=== PATIENT | female | born 2000 | race Caucasian/White ===

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

== ENCOUNTER 2021-11-09 13:56 | Emergency (ER) | payer BC, MEDICAID, SELFPAY ==
[2021-11-09 13:57] VITALS: BP 134/75; PULSE 82; RESP 16; TEMP 36.6; O2SAT 99; BMI 24.6
[2021-11-09] MEDS: Diphth,Pertuss(Acell),Tet Vac 0.5 ML Vial IM (14:53)
[2021-11-09] MEDS: Lidocaine 1% /Epi 1:100 (20ml) 20 ML Vial 3 ML INFILT (14:56)
--- NOTE | 2021-11-09 15:08 | EX.ED.GENINJ ---
HPI <ANGLE Villeda - Last Filed: 11/09/21 15:15> History of Present Illness Chief Complaint: Laceration Narrative Narrative: 20-year-old female with no significant ago history presents to the emergency department with a laceration to the right forearm. Patient was tearing apart her frames, she tore apart in a corner of the picture frame caught her in the right forearm. Patient has a laceration to her forearm and she is here for evaluation. Denies any issues moving her hands or fingers. Denies any fevers or chills. This happened right before coming in. Tetanus vaccination is not up-to-date. PFS <ANGLE Villeda - Last Filed: 11/09/21 15:15> [facility] Medical History (Updated 11/09/21 @ 15:15 by ANGLE Villeda) Environmental allergies Home Medications fluoxetine 20 mg capsule PO #30 caps 12/23/18 [History Last Taken Unknown] Allergy/AdvReac Type Severity Reaction Status Date / Time No Known Allergies Allergy Verified 11/09/21 13:56 Family History (Updated 12/23/18 @ 16:48 by Lor Álvarez) Sister Seizures Surgical History History of appendectomy Social History (Updated 12/23/18 @ 17:06 by Jalen VALDES, PA) Smoking Status: Never smoker alcohol intake: never ROS <ANGLE Villeda - Last Filed: 11/09/21 15:15> ROS ED ROS Narrative Constitutional: Negative for fever, chills, weight loss, weakness Eyes: Negative for vision loss, vision change, double vision ENT: Negative for any sore throat, ear pain, congestion Cardiovascular: Negative for any chest pain, tightness, palpitations Respiratory: Negative for any cough, sputum production, hemoptysis, dyspnea, dyspnea on exertion, orthopnea Gastrointestinal: Negative for any abdominal pain, nausea, vomiting, diarrhea, constipation, blood in stool, blood in vomit : Negative for any urinary frequency, dysuria, retention, blood in urine Muscle skeletal: Negative for any muscle joint pain, stiffness, myalgias, arthralgias, neck pain, back pain Neurological: Negative for any headache, syncope, numbness or tingling, dizziness Skin: Negative for any rashes, lumps, itching, abrasions. Laceration to the right forearm Psychiatric: Negative for any depression, anxiety, stress, suicidal ideation, homicidal ideation Hematologic: Negative for any easy bruising, excessive bruising, easy bleeding Allergies: Negative for any eczema, hives, rash EXAM <ANGLE Villeda - Last Filed: 11/09/21 15:15> Physical Exam Narrative Exam Narrative: Vital signs reviewed. Extremities: No peripheral edema, no signs of gross trauma or deformity. Active full range of motion of all extremities. Patient has a 3 cm horizontal laceration to the right forearm. Negative for any neurological focal deficit. Neuro: Cranial nerves II through XII intact, no focal neurological deficits. Skin: Clean dry and intact with no rash, purpura, petechiae, vesicles or pustules. Backs/flank: No CVA tenderness, no midline spinal tenderness, no deformity. Psych: Normal mood and affect. No SI, HI or acute psychosis. Const Vital Signs: 11/09/21 13:57 Temperature 97.8 F Temperature Source Temporal Pulse Rate 82 Respiratory Rate 16 Blood Pressure 134/75 H Blood Pressure Mean 94 Pulse Ox 99 Oxygen Delivery Method Room Air <Dr. Travis Hernandez DO - Last Filed: 11/09/21 15:15> Physical Exam Const Vital Signs: 11/09/21 13:57 Temperature 97.8 F Temperature Source Temporal Pulse Rate 82 Respiratory Rate 16 Blood Pressure 134/75 H Blood Pressure Mean 94 Pulse Ox 99 Oxygen Delivery Method Room Air PROC <ANGLE Villeda - Last Filed: 11/09/21 15:15> Procedures Lacerations Forearm laceration: Length: 1.18 in Depth: Sub Q Shape: Linear Prep: Sterile Conditions and Shure-Clens Laceration repair: Lidocaine with epi Irrigated (ml): 250 Number of Sutures/Tyson: 6 Suture Information: Ethilon Comment: Sterile gloves, sterile drapes were used [facility] <ANGLE Villeda Last Filed: 11/09/21 15:15> [facility] Treatment and Re-Evaluation Narrative: Patient appears well, patient appears nontoxic, vital signs are stable. Patient presents to the [facility] part with a 3 cm laceration to the right forearm. This area was at the thighs with lidocaine with epinephrine, irrigated copiously with normal saline. Sterile gloves, sterile drapes were used. No foreign body noted. 6 simple interrupted sutures of 4-0 Ethilon were used. Edges approximate nicely. Patient tolerated well. Tetanus vaccination was updated today. Patient will have these removed in 10 to 12 days. She instructed return for any worsening pain, redness to the area. She was given wound care instructions. Patient stable for discharge <Dr. Travis Hernandez, - Last Filed: 11/09/21 15:15> [facility] MDM Narrative Medical decision making narrative: Attending note: Patient seen and evaluated with noodle press operator. I perform my own [id number] evaluation. I agree with the plan of work-up. Laceration right forearm prior to arrival. Pulling apart wooden frame with the corner cut her forearm. Tetanus unknown. No anticoagulation. Bleeding controlled. Exam 3 cm mid volar forearm laceration subcu exposure. No tendon or muscle involvement. No active bleeding. Tetanus updated, wound repaired by noodle press operator. Wound care discussed. Follow-up as an outpatient. Discharge Plan Triage Chief Complaint: Laceration ED Midlevel Provider: Kade Du ED Provider: Travis Hernandez Dx/Rx/DC Orders Clinical Impression: Forearm laceration Instructions: ED Laceration Small or ..., ED Wound Check (No Infection) Prescriptions: No Action fluoxetine 20 mg capsule PO Qty: 30 Primary Care Provider: Care Physician,No Primary Referrals: Care Physician,No Primary [Primary Care Provider] - Activity Restrictions/Additional Instructions: Please keep the area clean and dry. These need to be removed in 10 days, go to a PCP or urgent care. Return for any redness or signs of infection. Print Language: Ivorian Disposition Disposition: Home, Self Care
== END 2021-11-09 15:22 | disposition home or self-care (01) ==
PROVIDERS: Emergency Provider Emergency Medicine; Visit Provider Emergency Medicine
DX: S51.811A Laceration without foreign body of right forearm, initial encounter (principal); X58.XXXA Exposure to other specified factors, initial encounter
CPT/HCPCS: 12001; 90715; 96372; 99282

== ENCOUNTER → 2022-02-12 | Outpatient (CLI) | payer BC, MEDICAID, SELFPAY ==
[2022-02-12 18:12] LABS: AST(SGOT) 22 U/L (15-37); Alanine Aminotransfer ALT/SGPT 19 U/L (13-56); Anion Gap 6 (5-15); BUN 7 mg/dL (7-18); BUN/Creat Ratio 10.6 RATIO (10-20); Chloride 104 mmol/L (98-107); Creatinine, Serum 0.66 mg/dL (0.55-1.02); EST Glomerular Filtration Rate 121 mL/min (>60); Est Glom Filt Rate - Afr Amer 146 mL/min (>60); Glucose 94 mg/dL (74-106); Potassium 3.6 mmol/L (3.5-5.1); Sodium Level 138 mmol/L (136-145)
[2022-02-12 18:17] LABS: Absolute Lymphocyte Count 2.37 X10^3/uL (0.83-4.51); Absolute Neutrophil Count 4.3 X10^3/uL (2.0-7.7); Basophil# 0.05 X10^3/uL; Basophil% 0.7 % (0-1); Eosinophil# 0.15 X10^3/uL; Hemoglobin 12.8 g/dL (12.0-15.0); Lymphocyte # 2.37 X10^3/ul (0.83-4.51); Lymphocyte % 31.3 % (19-41); Mean Corp Hgb Conc 33.7 g/dL (32-36); Mean Corpuscular Hgb 30.3 pg (27.0-32.0); Mean Corpuscular Volume 89.8 fL (81-99); Mean Platelet Vol. 10.1 fl (6.2-12.0); Monocyte# 0.68 X10^3/uL; NRBC Flagged by Analyzer 0 % (0-5); Neutrophil % 56.7 % (47-70); Platelet Count 317 K/mm3 (150-450); RBC Distribution Width CV 11.8 % (11.6-14.6); RBC Distribution Width SD 38.5 fl (35.1-43.9); Red Blood Count 4.23 M/mm3 (4.2-5.4); White Blood Count 7.6 K/mm3 (4.4-11.0)
[2022-02-13 08:47] LABS: Hepatitis B Surface Antibody Non-Reactive; Hepatitis B Surface Antigen Non-Reactive (Nonreactive); Hepatitis C Antibody Non-Reactive (Nonreactive)
[2022-02-14 13:07] LABS: QNTFERON TB Mitogen Value > 10.00 IU/mL (.); QNTFERON TB Nil Value 0.01 IU/mL (.); QNTFERON TB1+ Ag Value 0.04 IU/mL (.); QNTFERON TB2+ Ag Value 0.03 IU/mL (.)
[2022-02-19 12:39] LABS: Hepatitis B Core Ab Total Negative (Negative); QNTIFERON TB Positive Criteria Negative (Negative)
== END | disposition home or self-care (01) ==
LOC: MTLAB 15:46
PROVIDERS: Referring Provider Dermatology; Visit Provider Dermatology
DX: L40.0 Psoriasis vulgaris (principal); Z79.899 Other long term (current) drug therapy
CPT/HCPCS: 36415; 80048; 84450; 84460; 85025; 86480; 86704; 86706; 86803; 87340

== ENCOUNTER → 2022-04-04 | Outpatient (CLI) | payer BC, MEDICAID, SELFPAY ==
[2022-04-04 13:20] LABS: NATERA MAILED SPECIMEN
[2022-04-07 09:07] LABS: Chlamydia By Nucleic Acid AMP Positive (Negative)
[2022-04-07 13:37] LABS: Gonococcus By Nucleic Acid AMP Negative (Negative)
== END | disposition home or self-care (01) ==
PROVIDERS: Referring Provider Obstetrics & Gynecology; Visit Provider Obstetrics & Gynecology
DX: Z34.00 Encounter for supervision of normal first pregnancy, unspecified trimester (principal)
CPT/HCPCS: 36415; 87086; 87088; 87491; 87591

== ENCOUNTER → 2022-04-19 | Outpatient (CLI) | payer BC, MEDICAID, SELFPAY ==
--- NOTE | 2022-04-19 10:48 | US_ITS ---
INDICATION: f/u subchorionic hemorrhage EXAMINATION: US OB Less Than 14 Weeks TECHNIQUE: Transabdominal pelvic ultrasound was performed. Grayscale and color flow Doppler evaluation of the adnexa. COMPARISON: None received. FINDINGS: Uterus measures 11.6 x 8.9 x 10.1 cm. Single live intrauterine with heart rate of 164 BPM. Kershaw-rump length measurement of 6.5 cm yields estimated gestational age of 12 weeks 6 days, TAY 10/26/2022. Clinical age also 12 weeks 6 days, LMP 01/19/2022. Anechoic fluid collection underlying inferior margin of placenta compatible with subchorionic hematoma, measuring 4.6 x 1.1 x 1.9 cm. Closed cervix. Amniotic fluid volume subjectively within normal limits. No adnexal mass or significant free pelvic fluid demonstrated. Nonvisualized left ovary, obscured by bowel and regional soft tissues. Right ovary normal size with normal color Doppler flow and no large cyst, measuring 2.3 x 1.3 x 1.9 cm. Spectral Doppler waveform analysis of adnexa not performed. US/Init OB < 14Wks US IMPRESSION: Single live intrauterine with EGA of 12 weeks 6 days by ultrasound and LMP. Small subchorionic hematoma noted (no comparison imaging or prior report available). Electronically Signed: Alfonso Bazan MD at 1:48 EST ,
== END | disposition home or self-care (01) ==
LOC: US 10:47
PROVIDERS: Referring Provider Obstetrics & Gynecology; Visit Provider Obstetrics & Gynecology
DX: Z34.91 Encounter for supervision of normal pregnancy, unspecified, first trimester (principal)
CPT/HCPCS: 76801

== ENCOUNTER → 2022-04-25 | Outpatient (CLI) | payer BC, MEDICAID, SELFPAY | END | disposition home or self-care (01) | LOC: LABSPEC 11:07 | PROVIDERS: Referring Provider Obstetrics & Gynecology; Visit Provider Obstetrics & Gynecology | DX: N39.0 Urinary tract infection, site not specified (principal) | CPT/HCPCS: 87086; 87088 ==

== ENCOUNTER → 2022-05-08 | Outpatient (CLI) | payer MEDICAID, SELFPAY ==
--- NOTE | 2022-05-08 17:14 | US_ITS ---
STUDY: SECOND AND THIRD TRIMESTER OBSTETRICAL ULTRASOUND REASON FOR EXAM: Female, 21 years old F/U SUBCHORIONIC BLEED LMP: Unknown. TECHNIQUE: Transabdominal and Transvaginal TECHNICAL QUALITY: Adequate. PRIOR ULTRASOUND: None. FINDINGS: There is a single intrauterine fetus. The fetus is in a cephalic presentation. There is demonstrated cardiac activity with a heart rate of 185 bpm. There is a normal amniotic fluid volume. The largest amniotic fluid pocket measures 3.0 cm. The placenta is anterior in location and is not low lying. There are Grade 0 placental changes. The cervix measures 3.9 cm in length. The bilateral adnexal regions are normal. BIOMETRY: BPD: 3.2 cm: 16 weeks, 0 days HC: 16.7 cm: 15 weeks, 5 days AC: 9.9 cm: 16 weeks, 0 days FL: 1.8 cm: 15 weeks, 3 days age by current US: 15 weeks, 5 days. TAY by current US: October 25, 2022. Estimated weight: 133 grams, +/- 20 grams . age by prior US: 15 weeks, 4 days. TAY by prior US: October 26, 2022. Age by LMP: 15 weeks, 4 days. TAY by LMP: October 26, 2022. US/Transvaginal w/Preg US IMPRESSION: Single intrauterine gestation of 15 weeks 5 days with estimated due date October 25, 2022. Estimated weight 133 g. There is no hemorrhage seen. Electronically Signed: Reza Goff MD at 21:17 EST ,
== END | disposition home or self-care (01) ==
LOC: US 17:12
PROVIDERS: Referring Provider Obstetrics & Gynecology; Visit Provider Obstetrics & Gynecology
DX: Z34.92 Encounter for supervision of normal pregnancy, unspecified, second trimester (principal)
CPT/HCPCS: 76817

== ENCOUNTER → 2022-05-31 | Outpatient (CLI) | payer BC, MEDICAID, SELFPAY ==
[2022-06-04 22:07] LABS: Chlamydia By Nucleic Acid AMP Negative (Negative)
[2022-06-04 22:26] LABS: Gonococcus By Nucleic Acid AMP Negative (Negative)
== END | disposition home or self-care (01) ==
PROVIDERS: Visit Provider Registered Nurse
DX: Z11.3 Encounter for screening for infections with a predominantly sexual mode of transmission (principal)
CPT/HCPCS: 87491; 87591

== ENCOUNTER → 2022-07-22 | Outpatient (CLI) | payer OTHER, MEDICAID, SELFPAY | END | disposition home or self-care (01) | PROVIDERS: Visit Provider Nurse Practitioner Women's Health | DX: O26.899 Other specified pregnancy related conditions, unspecified trimester (principal); R30.0 Dysuria; Z3A.00 Weeks of gestation of pregnancy not specified | CPT/HCPCS: 87086; 87088 ==

== ENCOUNTER → 2022-07-23 | Outpatient (CLI) | payer MEDICAID, SELFPAY ==
[2022-07-23 10:46] LABS: Absolute Lymphocyte Count 1.92 X10^3/uL (0.83-4.51); Absolute Neutrophil Count 5.7 X10^3/uL (2.0-7.7); Basophil# 0.04 X10^3/uL; Basophil% 0.5 % (0-1); Eosinophil# 0.15 X10^3/uL; Eosinophils% 1.8 % (0-5); Hematocrit 31.4 % (37-47); Hemoglobin 10.6 g/dL (12.0-15.0); Lymphocyte # 1.92 X10^3/ul (0.83-4.51); Lymphocyte % 22.9 % (19-41); Mean Corp Hgb Conc 33.8 g/dL (32-36); Mean Corpuscular Hgb 30.9 pg (27.0-32.0); Mean Corpuscular Volume 91.5 fL (81-99); Mean Platelet Vol. 9.5 fl (6.2-12.0); Monocyte# 0.58 X10^3/uL; Monocyte% 6.9 % (0-10); NRBC Flagged by Analyzer 0 % (0-5); Neutrophil # 5.67 X10^3/uL (2.7-7.7); Neutrophil % 67.5 % (47-70); Platelet Count 252 K/mm3 (150-450); RBC Distribution Width CV 11.8 % (11.6-14.6); RBC Distribution Width SD 39.7 fl (35.1-43.9); Red Blood Count 3.43 M/mm3 (4.2-5.4); White Blood Count 8.4 K/mm3 (4.4-11.0)
[2022-07-23 11:02] LABS: Glucose Challenge Gest 1H 50g 153 mg/dL (70-140)
[2022-07-23 11:50] LABS: HIV - WCH Non-Reactive (Nonreactive); Hepatitis B Surface Antigen Non-Reactive (Nonreactive); Hepatitis C Antibody Non-Reactive (Nonreactive); Rubella IgG Reactive (Nonreactive); Syphilis Antibodies Non-reactive
== END | disposition home or self-care (01) ==
PROVIDERS: Referring Provider Obstetrics & Gynecology; Visit Provider Obstetrics & Gynecology
DX: Z34.00 Encounter for supervision of normal first pregnancy, unspecified trimester (principal)
CPT/HCPCS: 36415; 82950; 85025; 86703; 86762; 86780; 86803; 86850; 86900; 86901; 87340

== ENCOUNTER → 2022-07-31 | Outpatient (CLI) | payer MEDICAID, SELFPAY ==
[2022-07-31 10:59] LABS: Glucose GTT-Gestation. Fasting 92 mg/dL (<105)
[2022-07-31 11:43] LABS: Glucose GTT-Gestational 1 Hr 175 mg/dL (<190)
[2022-07-31 13:25] LABS: Glucose GTT-Gestational 2 Hr 179 mg/dL (<165)
[2022-07-31 14:10] LABS: Glucose GTT-Gestational 3 Hr 98 L (<145)
== END | disposition home or self-care (01) ==
LOC: LAB 09:46
PROVIDERS: Referring Provider Obstetrics & Gynecology; Visit Provider Obstetrics & Gynecology
DX: Z13.1 Encounter for screening for diabetes mellitus (principal)
CPT/HCPCS: 36415; 82951; 82952

== ENCOUNTER → 2022-09-20 | Outpatient (CLI) | payer OTHER, MEDICAID, SELFPAY | END | disposition home or self-care (01) | PROVIDERS: Referring Provider Obstetrics & Gynecology; Visit Provider Obstetrics & Gynecology | DX: O26.899 Other specified pregnancy related conditions, unspecified trimester (principal); Z67.91 Unspecified blood type, Rh negative; Z3A.00 Weeks of gestation of pregnancy not specified | CPT/HCPCS: 36415; 86900; 86901 ==

== ENCOUNTER → 2022-10-02 | Outpatient (CLI) | payer OTHER, MEDICAID, SELFPAY | END | disposition home or self-care (01) | PROVIDERS: Visit Provider Obstetrics & Gynecology | DX: Z34.00 Encounter for supervision of normal first pregnancy, unspecified trimester (principal) | CPT/HCPCS: 87081 ==

== ENCOUNTER 2022-10-27 02:22 | Inpatient (IN) | payer OTHER, MEDICAID, SELFPAY ==
[2022-10-27] VITALS (60 sets, daily range): BP systolic 91–149; BP diastolic 46–76; PULSE 71–175; TEMP 36.2–37.4; O2SAT 95–100; BMI 35.8
[2022-10-27] MEDS: Lactated Ringers 1,000 ML 50 ML IV ×3 (02:45→17:02)
[2022-10-27 03:04] LABS: Absolute Lymphocyte Count 2.42 X10^3/uL (0.83-4.51); Basophil# 0.06 X10^3/uL; Basophil% 0.5 % (0-1); Eosinophil# 0.15 X10^3/uL; Eosinophils% 1.3 % (0-5); Hematocrit 30.8 % (37-47); Hemoglobin 9.5 g/dL (12.0-15.0); Lymphocyte # 2.42 X10^3/ul (0.83-4.51); Lymphocyte % 20.4 % (19-41); Mean Corp Hgb Conc 30.8 g/dL (32-36); Mean Corpuscular Hgb 24.4 pg (27.0-32.0); Mean Platelet Vol. 9.1 fl (6.2-12.0); Monocyte# 1.12 X10^3/uL; Monocyte% 9.4 % (0-10); NRBC Flagged by Analyzer 0 % (0-5); Neutrophil # 8.03 X10^3/uL (2.7-7.7); Neutrophil % 67.6 % (47-70); Platelet Count 274 K/mm3 (150-450); RBC Distribution Width CV 15.2 % (11.6-14.6); RBC Distribution Width SD 43.1 fl (35.1-43.9); White Blood Count 11.9 K/mm3 (4.4-11.0)
[2022-10-27 03:30] LABS: AST(SGOT) 18 U/L (15-37); Alanine Aminotransfer ALT/SGPT < 6 U/L (13-56); Creatinine, Serum 0.47 mg/dL (0.55-1.02); EST Glomerular Filtration Rate 179 mL/min (>60); Est Glom Filt Rate - Afr Amer 217 mL/min (>60); Estimated Creatinine Clearance 157.94 ml/min; Uric Acid 2.9 mg/dL (2.6-6.0)
[2022-10-27 04:09] LABS: Syphilis Antibodies Non-reactive
[2022-10-27 04:24] LABS: Protein, Urine (Random) 12.4 mg/dL (<11.9); Protein:Creat Ratio 202 mg/g CRE (0-200)
[2022-10-27] MEDS: LACTATED RINGERS 500 ML 999 ML IV (06:08)
--- NOTE | 2022-10-27 07:04 | HP.PCM.OB_ITS ---
HPI - General General Date of Admission: 10/27/22 HPI Narrative HATTIE TERAN, is a 21 F who presents IAL with regular ctx borderline elevated bps normal labs, no vb lof good fm made change to 3 cm Maternal Data Information TAY Calculator Estimated Delivery Date Method Current WG Current Estimate 10/26/22 LMP (Certain) 40w 1d PFSH PFS Medical History (Updated 10/27/22 @ 07:[address] Isatu Liu MD) Abnormal glucose affecting Chlamydia infection affecting Environmental allergies Home Medications fluoxetine 20 mg capsule PO #30 caps 12/23/18 [History Last Taken Unknown] multivitamin no.47-iron fum 27 mg-folate no.1 1 mg-dha 300 mg capsule (Virt-PN DHA) 1 cap PO DAILY #90 caps 05/21/22 [Rx Last Taken Unknown] Allergy/AdvReac Type Severity Reaction Status Date / Time No Known Allergies Allergy Verified 10/27/22 01:42 Family History Sister Seizures absent sz epilepsy sz Surgical History History of appendectomy Hx of appendectomy Social History adopted: No household members: significant other housing: house current occupational status: unemployed current occupational exposures/hazards: No pets and animals: No history of recent travel: No sexually active: Yes Smoking Status: Former smoker quit date: 11/19/21 Tobacco: How many years used: 6 second hand exposure: No alcohol intake: never substance use type: does not use well-balanced diet: daily or most days caffeine: Yes (1 cup ) Type: coffee seatbelt use: always do you feel safe at home: No additional social history: fianc? - Maicol joseph History 1 Elective abortions Hx Para 0 Spontaneous abortions Hx # Term Pregnancies Ectopic pregnancies Hx # Pregnancies Multiple births # of living children Visit Details Expected Delivery Route/Plan Labor Preferences- CB/BF classes: encourage labor support person: Maicol labor intervention preferences: [] pain management options preferred: epidural cut cord/dad catch: would love to catch/cut cord : yes PP control planned: discussed discussed possible routes of delivery and associated risks: [] special requests: [] Plans Covid status: no vaccines Flu vaccine: declined Tdap vaccine: [] Rhogam: [] LARC form signed: yes Problem list reviewed and updated with the most current plan of care details and appropriate orders placed. Relevant counseling for the gestational age provided. Continue routine care and follow up unless otherwise noted in visit notes/problem list details OB Flowsheet Initial Weight: Not Recorded Date -?-?-?-?-?-?-?-?-?-?-?-?- EGA Weight BP Urine Prot -?-?-?-?-?-?-?-?-?-?-?-?- Glucose FHR FuHt Pres Dilation -?-?-?-?-?-?-?-?-?-?-?-?- Effaced St Visit Note 04/04/22 -?-?-?-?-?-?-?-?-?-?-?-?- 10w 5d 156 lb 4 oz 105/55 -?-?-?-?-?-?-?-?-?-?-?-?- 171 -?-?-?-?-?-?-?-?-?-?-?-?- JV- single live IUP with large 4.5 cm subchorionic hemorrhage. CRL measuring 11 weeks and 2 days, consistent with LMP. ordering formal scan in 2 weeks and asking patient to refrain from heavy lifting and intercourse. 05/02/22 -?-?-?-?-?-?-?-?--?-?-?-?- 14w 5d 162 lb 6 oz 120/70 Nega tive -?-?-?-?-?-?-?-?-?-?-?-?- Negative 160 -?-?-?-?-?-?-?-?-?-?-?-?- JV- nml NIPT (ge nder surprise) rpt scan on 04/19 showed persistence of large chuy. ordering follow up scan for close monitoring. 05/31/22 -?-?-?-?-?-?-?-?-?-?-?-?- 18w 6d 166 lb 8 oz 120/74 Nega tive -?-?-?-?-?-?-?-?-?-?-?-?- Negative 150 -?-?-?-?-?-?-?-?-?-?-?-?- LC- no concerns. DAMARIS obtained today. no vb/cramping. anatomy scheduled. denies afp 06/28/22 -?-?-?-?-?-?-?-?-?-?-?-?- 22w 6d 172 lb 8 oz 113/63 Nega tive -?-?-?-?-?-?-?-?-?-?-?-?- Negative 155 -?-?-?-?-?-?-?-?-?-?-?-?- JV-no lof, vagin al bleeding, or cramping. no complaints. 07/22/22 -?-?-?-?-?-?-?-?-?-?-?-?- 26w 2d 180 lb 2 oz 114/66 Nega tive -?-?-?-?-?-?-?-?-?-?-?-?- Negative 161 -?-?-?-?-?-?-?-?-?-?-?-?- MH-No Vb, LOF. G ood FM. Having urinary pressure: UA:+:Rx macorbid. Still has not done PN labs and glucose due. States will do tomorrow. 08/07/22 -?-?-?-?-?-?-?-?-?-?-?-?- 28w 4d 183 lb 2 oz 121/76 Nega tive -?-?-?-?-?-?-?-?-?-?-?-?- Negative 159 29 -?-?-?-?-?--?-?-?-?-?-?-?- JV- pt wants to think about tdap. no complaints. today. passed 3 hr. 08/21/22 -?-?-?-?-?-?-?-?-?-?-?-?- 30w 4d 188 lb 2 oz 114/79 Nega tive -?-?-?-?-?-?-?-?-?-?-?-?- Negative 150 29 -?-?-?-?-?-?-?-?-?-?-?-?- JV- no lof, vagi nal bleeding, or dec fm. declines tdap 09/04/22 -?-?-?-?-?--?-?-?-?-?-?-?- 32w 4d 193 lb 104/62 Trace -?-?-?-?-?-?-?-?-?-?-?-?- Negative 140 32 -?-?-?-?-?-?-?-?-?-?-?-?- LC- no lof/vb/ct x. good fm. declines rhogam today after, discussing benefits. will obtain partners blood typing and will consider. 09/20/22 -?-?-?-?-?-?-?-?-?-?-?-?- 34w 6d 197 lb 113/72 Negative -?-?-?-?-?-?-?-?-?-?-?-?- Negative 134 34 -?-?-?-?-?-?-?-?-?-?-?-?- JV- no lof, vagi nal bleeding, or dec fm. pt agrees to get rhogam now as we were never able to fing OBDULIO's blood type. (she declined it last time) 10/02/22 -?-?-?-?-?-?-?-?-?-?-?-?- 36w 4d 197 lb 122/82 -?-?-?-?-?-?-?-?-?-?-?-?- 165 36 Cephalic 0 -?-?-?-?-?-?-?-?-?-?-?-?- JV- no lof, vagi nal bleeding, or dec fm. gbs collected. 10/11/22 -?-?-?-?-?-?-?-?-?-?-?-?- 37w 6d 200 lb 6 oz 116/76 Nega tive -?-?-?-?-?-?-?-?-?-?-?-?- Negative 155 37 Cephalic 0 -?-?-?-?-?-?-?-?-?-?-?-?- JV- vtx on bedsi de scan. no complaints. GBS neg 10/18/22 -?-?-?-?-?-?-?-?-?-?-?-?- 38w 6d 203 lb 8 oz 120/76 Nega tive -?-?-?-?-?-?-?-?-?-?-?-?- Negative 140 39 Cephalic 0 -?-?-?-?-?-?-?-?-?-?-?-?- -4 LC- no v b/ctx/lof.no complaints. 10/25/22 -?-?-?-?-?-?-?-?-?-?-?-?- 39w 6d 201 lb 2 oz 109/69 Nega tive -?-?-?-?-?-?-?-?-?-?-?-?- Negative 140 40 2.5 -?-?-?-?-?-?-?-?-?-?-?-?- 60 -2 SM- no vb lof good fm no regular ctx NST FHR Rate Baby A Baseline: 140 Variability:: Moderate Accelerations:: 15 x 15 Decelerations:: Late (isolated) NST Reactive:: Yes FHR Category:: Category II Uterine Activity:: q3-5 ROS Constitutional Constitutional: Reports systems reviewed and no addt'l complaints, except as documented ENT HEENT: Reports systems reviewed and no addt'l complaints, except as documented Cardiovascular Cardiovascular: Reports systems reviewed and no addt'l complaints, except as documented Respiratory/Chest Respiratory/Chest: Reports systems reviewed and no addt'l complaints, except as documented Gastrointestinal Gastrointestinal: Reports systems reviewed and no addt'l complaints, except as documented and nausea; Denies abdominal pain Genitourinary Genitourinary: Reports systems reviewed and no addt'l complaints, except as documented, contractions Details: present and frequency (regular ) and movement Details: present Musculoskeletal Musculoskeletal: Reports systems reviewed and no addt'l complaints, except as documented Integumentary Integumentary: Reports as per HPI Neurologic Neurologic: Reports systems reviewed and no addt'l complaints, except as documented Endocrine Endocrinology: Reports systems reviewed and no addt'l complaints, except as documented Vital Signs Vital Signs Vital Signs: 10/27/22 01:38 10/27/22 01:38 10/27/22 01:38 Temperature Temperature Source Pulse Rate 91 89 Blood Pressure 149/76 H BP Systolic 149 BP Diastolic 76 Pulse Ox 10/27/22 01:38 10/27/22 01:41 10/27/22 01:41 Temperature Temperature Source Pulse Rate 89 Blood Pressure 145/74 H BP Systolic 145 BP Diastolic 74 Pulse Ox 99 10/27/22 01:39 10/27/22 01:39 10/27/22 03:59 Temperature 97.1 F L Temperature Source Temporal Pulse Rate Blood Pressure 135/72 H BP Systolic 135 BP Diastolic 72 Pulse Ox 10/27/22 03:59 10/27/22 03:59 10/27/22 03:59 Temperature Temperature Source Temporal Pulse Rate 80 83 Blood Pressure BP Systolic BP Diastolic Pulse Ox 10/27/22 03:59 10/27/22 03:59 10/27/22 05:16 Temperature 97.6 F L Temperature Source Pulse Rate Blood Pressure 139/76 H BP Systolic 139 BP Diastolic 76 Pulse Ox 99 10/27/22 05:16 10/27/22 05:20 10/27/22 05:20 Temperature Temperature Source Temporal Pulse Rate 75 Blood Pressure 139/76 H BP Systolic 139 BP Diastolic 76 Pulse Ox 10/27/22 05:20 10/27/22 05:20 10/27/22 05:58 Temperature 97.3 F L Temperature Source Pulse Rate 75 Blood Pressure 128/73 H BP Systolic 128 BP Diastolic 73 Pulse Ox 10/27/22 05:58 10/27/22 05:58 10/27/22 05:58 Temperature 97.5 F L Temperature Source Temporal Pulse Rate 96 Blood Pressure BP Systolic BP Diastolic Pulse Ox Weight Weight: 202 lb 6.15 oz Body Mass Index (BMI) 35.8 Physical Exam Const alert, oriented x3 and healthy appearing Constitutional Narrative: uncomfortable with contractions HEENT normocephalic and moist oral mucous membranes Head and Scalp: atraumatic Neck full ROM, no lymphadenopathy, supple and thyroid normal General: trachea midline Thyroid: thyroid normal Lymph Lymphatic: no lymphadenopathy noted Chest inspection of chest normal Resp normal respiratory effort Cardio regular rate GI normal to inspection, nondistended, normoactive bowel sounds, soft to palpation and non-tender Inspection: gravid external exam normal Bimanual Exam - Vag & Uterus: uterus non-tender Manual OB Exam: estimated gestational size appropriate, presentation cephalic, dilated, effaced and station Extremity normal to inspection General Extremity: Negative for edema Skin no rashes or lesions noted Neuro deep tendon reflexes 2+ bilaterally Motor Exam: strength 5/5 throughout and clonus absent Psych mental status grossly normal Labs Labs Labs: Blood Type O NEGATIVE Antibody Screen POSITIVE Hct 30.8 % (37-47) L Hgb 9.5 g/dL (12.0-15.0) L Obstetrics US Syphilis Total Ab Non-reactive Rubella IgG Antibody Reactive (Nonreactive) Hep Bs Antigen Non-Reactive (Nonreactive) Chlamydia DNA (TORREY) Negative (Negative) Neisseria gonorrhoeae DNA (TORREY) Negative (Negative) HIV 1&2 Antibody Non-Reactive (Nonreactive) Glucose 1 Hr 50 gm 153 mg/dL (70-140) H Assessment & Plan (1) Rh negative status during : COMMENT: rhogam given 09/20/22 (2) UTI in : COMMENT: Culture pending. Rx macrobid (3) Supervision of normal first : COMMENT: PRR TAY 10/26/2022. girl Arabella Milian (4) : QUALIFIERS: Weeks of gestation: 39 weeks Qualified Code(s): Z3A.39 - 39 weeks gestation of COMMENT: Neg GBS NIPT low risk, carrier screening neg. , nl anatomy (5) Abnormal glucose affecting : COMMENT: nl 3 hr. GTT (6) Active labor at term: PLAN: Plan Patient presents IAL, plan expectant management for , pitocin/AROM PRN if needed. Pain management: plans epidural. GBS neg Management of any complications: none I have reviewed the [facility] and made any clinically relevant updates.
[2022-10-27] MEDS: fentaNYL-bupivacaine (epidural) 100 ML BAG EPIDURAL ×4 (07:56→21:34)
[2022-10-27] MEDS: Oxytocin 15 Units/NS 250ml 15 UNITS/250 ML IV.SOLN 2 UNITS IV (10:55)
--- NOTE | 2022-10-27 23:15 | OP.PCM_ITS ---
Assessment & Plan (1) Abnormal glucose affecting : COMMENT: nl 3 hr. GTT (2) : QUALIFIERS: Weeks of gestation: 39 weeks Qualified Code(s): Z3A.39 - 39 weeks gestation of COMMENT: Neg GBS NIPT low risk, carrier screening neg. , nl anatomy (3) Supervision of normal first : COMMENT: PRR TAY 10/26/2022. girl Arabella Milian (4) UTI in : COMMENT: Culture pending. Rx macrobid (5) Rh negative status during : COMMENT: rhogam given 09/20/22 (6) Active labor at term: (7) Vaginal delivery: COMMENT: SM IAL girl Arabella 40 Maternal Data Information TAY Calculator Estimated Delivery Date Method Current WG Current Estimate 10/26/22 LMP (Certain) 40w 1d Vaginal Delivery Operative Information Date of Procedure: 10/27/22 Pre-Operative Diagnosis: see a/p diagnoses Post-Operative Diagnosis: same Surgery / Procedure Performed: Spontaneous Vaginal Delivery Type of Anesthesia: Epidural Special Medications: none Estimated Blood Loss: 300 Fluids Replaced: crystalloid Findings Description of Procedure: Patient began pushing and delivered the head in the DORIS presentation. The head was delivered atraumatically and a loose nuchal cord ?2 was identified and the delivered through without complication. The anterior and posterior sotero ulders delivered without complication followed by the rest of the and the infant was placed on the maternal abdomen. Delayed cord clamping was employed for approximately 60 seconds. Cord was clamped and cut and gentle traction was applied to the cord and the placenta delivered spontaneously immediately following it was noted to be intact with three-vessel cord. The perineum and vagina were inspected and noted to have a second degree perineal laceration which was repaired in the usual fashion with 3-0 vicryl rapide. . EBL was 300. Patient and tolerated delivery well. Amniotic Fluid Description: Moderate meconium Placental Delivery Description: Spontaneous Placenta Disposition: [facility] Cord Vessel Description: 3 Vessels Cord Entanglement: Around neck x 2, loose Delayed Cord Clamping: Yes Post Vaginal Delivery Medications Given After Delivery: IV Pitocin Episiotomy Description: None Complication Complications: None Procedures Urinary/Genital [id number]: [id number] [facility]aginal [facility]
[2022-10-27] MEDS: Oxytocin 15 Units/NS 250ml 15 UNITS/250 ML IV.SOLN 83 UNITS IV (23:16)
--- NOTE | 2022-10-27 23:18 | DCINST_ITS ---
Discharge Instructions Diet Discharge Diet: No restrictions Activity Discharge Activity: Return to Normal Activity, May Not Drive (while taking narcotic pain medications.) and May Shower May resume sexual activity in: 4-6 weeks Dressing / Incision Call your doctor if your incision/area has: Continuous Slow Oozing, Sudden Increased Bleeding, Increased Pain/ Swelling, Increased Redness and Foul Smelling Discharge Follow Up Care Please Follow Up With: Isatu iLu MD When: Call [phone] to make an appointment with your doctor in 6 weeks. If you had elevated blood pressure or 4th degree laceration, you will need to be seen in 2 weeks. Test Results: Test results from this visit will be discussed in further detail at your follow- up appointment, if applicable. Discharge Plan Admission Admit Date/Time: 10/27/22 02:22 Attending Provider: Isatu Liu Primary Care Provider: Care Physician,Latasha Primary Discharge Orders/Prescriptions Prescriptions: No Action fluoxetine 20 mg capsule PO Qty: 30 Virt-PN DHA 27 mg iron-1 mg -300 mg capsule 1 cap PO DAILY Qty: 90 3RF Referrals / Follow Up: Care Physician,No Primary [Primary Care Provider] -
[2022-10-28] VITALS (12 sets, daily range): BP systolic 108–134; BP diastolic 46–75; PULSE 78–95; RESP 16–18; TEMP 36.2–37.6; O2SAT 97–98
[2022-10-28] MEDS: Naproxen 500 MG Tablet PO ×2 (01:25→15:52)
--- NOTE | 2022-10-28 07:49 | PCM.PN.OB ---
Subjective Subjective Patient doing well without complaints. Tolerating PO. Ambulating and voiding without difficulty. Feeding well. Denies chest pain, shortness of breath, calf pain/swelling, fevers, chills, lightheadedness. Objective Data Objective Data Vital Signs: Vital Signs Temp Pulse Resp BP Pulse Ox 98.0 F 90 16 108/56 L 100 10/28/22 05:30 10/28/22 05:30 10/28/22 05:30 10/28/22 05:30 10/27/22 21:12 Weight: 202 lb 6.15 oz Body Mass Index (BMI) 35.8 Intake & Output: Intake and Output for Last 24 Hours 10/26/22 10/27/22 10/28/22 23:59 23:59 23:59 Intake Total 6284.17 / 6284.17 250 / 250 Output Total 3700 / 3700 1800 / 1800 Balance 2584.17 / 2584.17 -1550 / -1550 Lab / Micro Data 10/27/22 02:45 10/27/22 02:45 Labs: Laboratory Results - last 24 hr 10/28/22 02:25: Screen NEGATIVE, Baby's Blood Type O POSITIVE, Baby's MARIA ESTHER NEGATIVE Physical Exam Const alert and oriented x3 Chest inspection of chest normal Nipple/Areola: nipples/areola normal Resp normal respiratory effort, normal air movement and no retractions GI GI Narrative: fundus firm, 1 below u, scant lochia Extremity normal to inspection, full ROM, no calf tenderness and no pedal edema Skin no rashes or lesions noted Assessment & Plan (1) Vaginal delivery: COMMENT: SM IAL girl Arabella 40 (2) Rh negative status during : COMMENT: rhogam given 09/20/22
[2022-10-29 02:20] VITALS: BP 103/58; PULSE 70; RESP 16; TEMP 36.6
[2022-10-29] MEDS: Naproxen 500 MG Tablet PO (04:02)
--- NOTE | 2022-10-29 08:02 | PCM.PN.OB ---
Subjective Subjective Patient doing well without complaints. Tolerating PO. Ambulating and voiding without difficulty. Breast feeding-baby with some difficulty. Cries frequently. Denies chest pain, shortness of breath, calf pain/swelling, fevers, chills, lightheadedness. Objective Data Objective Data Vital Signs: Vital Signs Temp Pulse Resp BP Pulse Ox O2 Del Method 97.8 F 70 16 103/58 L 98 Room Air 10/29/22 02:20 10/29/22 02:20 10/29/22 02:20 10/29/22 02:20 10/28/22 15:37 10/29/22 02:20 Oxygen Delivery Method Room Air Weight: 202 lb 6.15 oz Body Mass Index (BMI) 35.8 Intake & Output: Intake and Output for Last 24 Hours 10/27/22 10/28/22 10/29/22 23:59 23:59 23:59 Intake Total 6284.17 / 6284.17 250 / 250 Output Total 3700 / 3700 1800 / 1800 Balance 2584.17 / 2584.17 -1550 / -1550 Lab / Micro Data 10/27/22 02:45 10/27/22 02:45 Physical Exam Const alert and oriented x3 HEENT normocephalic Eyes PERRL Neck full ROM Resp normal respiratory effort GI soft to palpation GI Narrative: FF below U Assessment & Plan (1) Vaginal delivery: COMMENT: SM IAL girl Arabella 41 (2) Rh negative status during : QUALIFIERS: Trimester: unspecified trimester Qualified Code(s): O26.899 - Other specified related conditions, unspecified trimester; Z67.91 - Unspecified blood type, Rh negative COMMENT: rhogam given 09/20/22 PLAN: Plan s/p PPD # 2 1. routine post delivery care 2. breast feeding- support given 3. rh negative 4. rubella immune 5. home today
[2022-10-29 08:45] VITALS: BP 106/60; PULSE 78; RESP 16; TEMP 36.8; O2SAT 97
== END 2022-10-29 11:35 | disposition home or self-care (01) | DRG 806 ==
LOC: WPOUT 02:27 → WP 02:27
PROVIDERS: Admitting Provider Obstetrics & Gynecology; PCP Pediatrics; Referring Provider Obstetrics & Gynecology; Visit Provider Obstetrics & Gynecology
DX: O76 Abnormality in fetal heart rate and rhythm complicating labor and delivery (principal); Z37.0 Single live birth; O23.43 Unspecified infection of urinary tract in pregnancy, third trimester; O26.893 Other specified pregnancy related conditions, third trimester; Z67.41 Type O blood, Rh negative; O69.81X0 Labor and delivery complicated by cord around neck, without compression, not applicable or unspecified; O77.0 Labor and delivery complicated by meconium in amniotic fluid; O70.1 Second degree perineal laceration during delivery; O99.814 Abnormal glucose complicating childbirth; Z3A.39 39 weeks gestation of pregnancy; Z86.19 Personal history of other infectious and parasitic diseases; Z87.891 Personal history of nicotine dependence
CPT/HCPCS: 59025; 59050; 82565; 82570; 84156; 84450; 84460; 84550; 85025; 85461; 86780; 86850; 86870; 86900; 86901; 99221; J7120; G0378; J2790

== ENCOUNTER → 2023-01-24 | Outpatient (CLI) | payer OTHER, MEDICAID, SELFPAY ==
[2023-01-24 12:55] LABS: Progesterone Level 0.51 ng/mL (See Comment)
[2023-01-24 13:48] LABS: Estradiol 38.8 pg/mL; Luteinizing Hormone 4.2 mIU/mL; T4 Free Direct 1.16 ng/dL (0.76-1.46); Thyroid Stim Hormone (TSH) 1.23 uIU/mL (0.358-3.74)
== END | disposition home or self-care (01) ==
PROVIDERS: PCP Pediatrics; Referring Provider Registered Nurse; Visit Provider Registered Nurse
DX: N92.6 Irregular menstruation, unspecified (principal)
CPT/HCPCS: 36415; 82670; 83001; 83002; 84144; 84439; 84443

== ENCOUNTER → 2023-06-03 | Outpatient (CLI) | payer OTHER, MEDICAID, SELFPAY ==
--- OUTSIDE RECORDS SUMMARY | 2023-06-03 12:11 | XMS RPT_ITS | CCD ---
Author Name Unknown Address [address] [facility] [address] [place] [address] Organization [facility] Care Team Providers Care Natural History Collections Curator Name Role Phone Erlinda Negrete DO Primary Care Provider [phone] Nandini Stark MD Unavailable ERLINDA NEGRETE Primary Care Unavailable ERLINDA NEGRETE Referring Unavailable NANDINI STARK Attending Unavailable MIKE ROBLES Attending Unavailable JADEN ROLLINS Referring Unavailab ERLINDA Moe Primary Care Unavailable ERLINDA NEGRETE Primary Care Unavailable NANDINI STARK Attending Unavailable NANDINI STARK Referring Unavailable Allergies Allergy Classification Reported Allergen(s) Allergy Type Date of Onset Reaction(s) Facility (2 sources) Seasonal allergy; Translations: [SEASONAL ALLERGIES] Propensity to adverse reactions 5 Other (See Comments) [facility] Problems Active Problems Problem Classification Problem Date Documented Date Episodic/Chronic Attention-deficit, conduct, and disruptive behavior disorders (2 sources) Attention deficit hyperactivity disorder; Translations: [Attention-deficit hyperactivity disorder, unspecified type] Onset: 07-15-2013 Chronic Attention-deficit, conduct, and disruptive behavior disorders (2 sources) Oppositional defiant disorder; Translations: [Oppositional defiant disorder] Onset: 07-15-2013 Resolved: 06-20-2020 Chronic Residual codes; unclassified (1 source) FH: Chromosomal anomaly; Translations: [Family history of other congenital malformations, deformations and chromosomal abnormalities] Episodic Residual codes; unclassified (1 source) FH: Blindness; Translations: [Family history of blindness and visual loss] Episodic Residual codes; unclassified (1 source) Family history of hereditary disease; Translations: [Family history of other specified conditions] Episodic Past or Other Problems Problem Classification Problem Date Documented Da te Episodic/Chronic Appendicitis and other appendiceal conditions (1 source) Acute appendicitis; Translations: [Unspecified acute appendicitis] Onset: 08-18-2015 Resolved: 09-01-2015 09-01-2015 Episodic Other nutritional; endocrine; and metabolic disorders (1 source) Overweight in childhood; Translations: [Body mass index (BMI) pediatric, 85th percentile to less than 95th percentile for age] Onset: 09-15-2018 09-15-2018 Episodic Results Test Name Value Interpretation Reference Range Facil ity Encounters Encounter Date Encounter Type Care Provider Facility Start: 06-05-2022 End: 06-05-2022 ambulatory MIKE ROBLES [facility] Start: 05-13-2022 End: 05-14-2022 ambulatory [facility] Start: 05-13-2022 End: 05-13-2022 ambulatory [facility] Start: 05-13-2022 End: 05-13-2022 Subsequent hospital visit by physician Nandini Stark MD Work Phone: [facility] Plan of Treatment Date Care Activity Detail Author Start: 06-09-2023 Tetanus Diphtheria a nd Pertussis Vaccines (7 - Td or Tdap) Tetanus Diphtheria and Pertussis Vaccines (7 - Td or Tdap) [facility] Start: 05-30-2022 End: 05-30-2022 Professional / ancillary services management 05/30/2022 Ancillary Procedure Visit [facility] Start: 12-20-2021 FLU (#1) FLU (#1) [facility] Start: 06-20-2021 Well Visit Well Visit [facility] Start: 03-18-2019 Hepatitis A (2 of 2 - 2-dose series) Hepatitis A (2 of 2 - 2-dose series) [facility] Start: 2017 MenB (1 of 2 - MenB 2-Dose Series Bexsero) MenB (1 of 2 - MenB 2-Dose Series Bexsero) [facility] Start: 01-21-2007 Varicella (2 of 2 - 2-dose childhood series) Varicella (2 of 2 - 2-dose childhood series) [facility] Start: 06-23-2002 COVID-19 (#1) COVID-19 (#1) [facility] End: 05-13-2022 Genetic Sendout: 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) [facility] Work Phone: Immunizations Immunization Date Immunization Notes Care Provider [facility] 09-15-2018 hepatitis A vaccine, pediatric/adolescent dosage, 2 dose schedule Nandini Stark MD Work Phone: [facility] 09-15-2018 meningococcal polysaccharide (groups A, C, Y and W-135) diphtheria toxoid conjugate vaccine (MCV4P) Nandini Stark MD Work Phone: [facility] 02-04-2014 Influenza Quadrivale nt (PF) Nandini Stark MD Work Phone: [facility] 10-07-2013 human papilloma viru s vaccine, quadrivalent Nandini Stark MD Work Phone: [facility] 06-09-2013 human papilloma viru s vaccine, quadrivalent Nandini Stark MD Work Phone: [facility] 06-09-2013 meningococcal polysaccharide (groups A, C, Y and W-135) diphtheria toxoid conjugate vaccine (MCV4P) Nandini Stark MD Work Phone: [facility] 06-09-2013 tetanus toxoid, redu maite diphtheria toxoid, and acellular pertussis vaccine, adsorbed Nandini Stark MD Work Phone: [facility] 04-07-2013 human papilloma viru s vaccine, quadrivalent Nandini Stark MD Work Phone: [facility] 04-07-2013 influenza virus vacc ine, unspecified formulation Nandini Stark MD Work Phone: [facility] 03-13-2012 influenza virus vacc ine, unspecified formulation Nandini Stark MD Work Phone: [facility] 03-08-2011 influenza virus vacc ine, unspecified formulation Nandini Stark MD Work Phone: [facility] 2006 diphtheria, tetanus toxoids and acellular pertussis vaccine Nandini Stark MD Work Phone: [facility] 2006 measles, mumps and rubella virus vaccine Nandini Stark MD Work Phone: [facility] 2006 poliovirus vaccine, inactivated Nandini Stark MD Work Phone: [facility] 07-04-2003 diphtheria, tetanus toxoids and acellular pertussis vaccine Nandini Stark MD Work Phone: [facility] 12-29-2002 haemophilus influenz ae type b vaccine, PRP-T conjugate Nandini Stark MD Work Phone: [facility] 12-29-2002 measles, mumps and rubella virus vaccine Nandini Stark MD Work Phone: [facility] 12-29-2002 pneumococcal conjuga te vaccine, 7 valent Nandini Stark MD Work Phone: [facility] 12-29-2002 varicella virus vaccine Ayana Stark MD Work Phone: [facility] 07-21-2002 diphtheria, tetanus toxoids and acellular pertussis vaccine Nandini Stark MD Work Phone: [facility] 07-21-2002 haemophilus influenz ae type b vaccine, PRP-T conjugate Nandini Stark MD Work Phone: [facility] 07-21-2002 hepatitis B vaccine, pediatric or pediatric/adolescent dosage Nandini Stark MD Work Phone: [facility] 07-21-2002 pneumococcal conjuga te vaccine, 7 valent Nandini Stark MD Work Phone: [facility] 07-21-2002 poliovirus vaccine, inactivated Nandini Stark MD Work Phone: [facility] 05-19-2002 diphtheria, tetanus toxoids and acellular pertussis vaccine Nandini Stark MD Work Phone: [facility] 05-19-2002 haemophilus influenz ae type b vaccine, PRP-T conjugate Nandini Stark MD Work Phone: [facility] 05-19-2002 pneumococcal conjuga te vaccine, 7 valent Nandini Stark MD Work Phone: [facility] 05-19-2002 poliovirus vaccine, inactivated Nandini Stark MD Work Phone: [facility] 02-22-2002 diphtheria, tetanus toxoids and acellular pertussis vaccine Nandini Stark MD Work Phone: [facility] 02-22-2002 haemophilus influenz ae type b vaccine, PRP-T conjugate Nandini Stark MD Work Phone: [facility] 02-22-2002 hepatitis B vaccine, pediatric or pediatric/adolescent dosage Nandini Stark MD Work Phone: [facility] 02-22-2002 pneumococcal conjuga te vaccine, 7 valent Nandini Stark MD Work Phone: [facility] 02-22-2002 poliovirus vaccine, inactivated Nandini Stark MD Work Phone: [facility] 2001 hepatitis B vaccine, pediatric or pediatric/adolescent dosage Nandini Stark MD Work Phone: [facility] Payers Date Payer Category Payer Unknown [id number] 2001 Unknown [id number] 2001 Unknown [id number] 2001 Unknown [id number] Unknown [id number] Unknown [id number] Social History Date Type Detail Facility Start: 05-13-2022 [facility] Start: 05-13-2022 Tobacco use and exposure Smokeless tobacco non-user [facility] Start: 05-13-2022 Alcohol intake Not Asked [facility] Start: 05-13-2022 Alcohol intake [facility] Start: 2001 Sex Assigned At Not on file A [facility] Progress note 12-13-2020 Note Date & Type Note Facility 12-13-2020 Note HNO ID: [id number] Author: Eleazar Jackson APRN.FINISHER CARD TENDER Service: ? Author Type: Nurse Practitioner Type: Progress Notes Filed: 12/13/2020 2:16 PM Note Text: Subjective HPI HPI Floridalma Mendoza is a 19 year old female who presents today for CC of cough, st, fever. This started 4 days ago. Has tried otc medication for relief. Symptoms are worsened by nothing. Risk factors recent sick exposures. .Patient presents with: Cough: with sore throat AND intermittent fever x 4 days PAST MEDICAL HISTORY Diagnosis Date - ADHD (attention deficit hyperactivity disorder) 07-15-2013 - NEGATIVE MEDICAL HISTORY Normal Color Vision - Odd detrimental health beliefs 07-15-2013 - Periods, menstrual, difficult 2013 Age 13 PAST SURGICAL HISTORY Procedure Laterality Date - LAPAROSCOPIC APPENDICOSTOMY ALLERGIES Enviromental [Other] MEDICATIONS Ypffhtmbxcsgfhz-Exqssbkpy-HR (BROMFED DM) 2-30-10 mg/5 mL syrup Take 5 mL by mouth four times daily as needed. mupirocin (BACTROBAN) 2 % ointment Apply 1 application to affected area three times daily. APPLY TO AFFECTED AREA FAMILY HISTORY Problem Relation Age of Onset - Psychiatry Mother depression - None Father - Psychiatry Maternal Grandfather Social History Tobacco Use - Smoking status: Never Smoker - Smokeless tobacco: Never Used Substance Use Topics - Alcohol use: No - Drug use: No ROS Objective Blood pressure 112/74, pulse 78, temperature 37.1 ?C (98.7 ?F), temperature source Left Tympanic, resp. rate 16, weight 61.4 kg (135 lb 6.4 oz), last menstrual period 03/20/2016, SpO2 96 %. Physical Exam Constitutional: General: She is not in acute distress. Appearance: She is not toxic-appearing or diaphoretic. HENT: Head: Normocephalic and atraumatic. Mouth/Throat: Pharynx: Posterior oropharyngeal erythema present. No pharyngeal swelling, oropharyngeal exudate or uvula swelling. Cardiovascular: Rate and Rhythm: Normal rate and regular rhythm. Heart sounds: Normal heart sounds, S1 normal and S2 normal. Pulmonary: Effort: Pulmonary effort is normal. Breath sounds: Normal breath sounds. Lymphadenopathy: Cervical: No cervical adenopathy. Right cervical: No superficial cervical adenopathy. Left cervical: No superficial cervical adenopathy. Neurological: Mental Status: She is alert and oriented to person, place, and time. Gait: Gait is intact. ASSESSMENT/PLAN: 1. Sore throat - ICD9: 462, ICD10: J02.9 (primary diagnosis) - suspect viral - Alere Strep Test negative, no culture pending - Discussed supportive care treatment with fluids, rest and analgesia. - The patient should follow up in 3-5 days if symptoms persist or worsen - Call back if drooling, increased temperature, symptoms of dehydration and/or still sick in one week Discussed quarantine, social distancing otc medications discussed Push fluids -If you experience chest pain/shortness of breath go to ER - STREP A MOLECULAR (POC) - 2019 CORONAVIRUS 2. URI with cough and congestion - ICD9: 465.9, ICD10: J06.9 - Discussed viral etiology and rationale for treatment. - Symptomatic treatment with prn analgesia - Supportive care with fluids and rest - 2019 CORONAVIRUS Agrees to plan Eleazar Jackson APRN.FINISHER CARD TENDER [facility] Clinical Note 11-18-2020 Note Date & Type Note Facility 11-18-2020 Note . MICRO - Microbiology PROCEDURE: Urine Culture [*1] SOURCE: Urine, Clean Catch BODY SITE: COLLECTED DATE/TIME: 11/15/2020 22:11 EDT RECEIVED DATE/TIME: 11/16/2020 17:12 EDT START DATE/TIME: 11/16/2020 17:12 EDT FREE TEXT SOURCE: FINAL REPORTS Final Report [] Verified Date/Time/Personnel: 11/18/2020 07:50 EDT 10,000 - 50,000 cfu/ml Multiple bacterial morphotypes present. Probable Contamination. Suggest recollection if clinically indicated. PRELIMINARY REPORTS Preliminary Report [] Verified Date/Time/Personnel: 11/17/2020 10:04 EDT No growth to date Performing Locations *1: This test was performed at: [address], [address] [place] [address] ([place]) Clinical Note 11-17-2020 Note Date & Type Note Facility 11-17-2020 Note . MICRO - Microbiology PROCEDURE: Affirm Pathogens DNA Direct Probe [*1] SOURCE: Vaginal Fluid BODY SITE: Cervix COLLECTED DATE/TIME: 11/15/2020 22:11 EDT RECEIVED DATE/TIME: 11/16/2020 15:23 EDT START DATE/TIME: 11/16/2020 15:24 EDT FREE TEXT SOURCE: FINAL REPORTS Final Report [] Verified Date/Time/Personnel: 11/17/2020 12:10 EDT Gardnerella vaginalis DNA Probe Negative Trichomonas vaginalis DNA Probe Negative Jackelyn species DNA Probe Negative Performing Locations *1: This test was performed at: [address], [address] [place] [address] ([place]) Evaluation note Note Date & Type Note Facility documented in this encounter [facility] Summary Purpose Family History No Family History Records FoundNo Family History Records FoundNo Family History Records Found Advance Directives No Advanced Directives Records FoundNo Advanced Directives Records FoundNo Advanced Directives Records Found Reason for Referral Specialty Diagnoses / Procedures Referred By Mariia t Referred To Contact Lab Diagnoses Family history of blindness Family history of genetic disorder Procedures Genetic Sendout: [id number] known familial [place] [address] Referral ID Status Reason Start Date Expiration Date V isits Requested Visits Authorized [id number] [facility] Required 05/13/2022 05/13/2023 1 1 Specialty Diagnoses / Procedures Referred By Contac t Referred To Contact Lab Diagnoses Attention deficit hyperactivity disorder (ADHD), unspecified ADHD type Oppositional defiant disorder Family history of chromosomal microdeletion Family history of blindness Family history of genetic disorder Procedures Genetic Sendout: 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) [place] [address] Referral ID Status Reason Start Date Expiration Date V isits Requested Visits Authorized [id number] [facility] Required 05/13/2022 05/13/2023 1 1 Additional Source Comments INFORMATION SOURCE (unrecogn ized section and content) DATE CREATED AUTHOR AUTHOR'S ORGANIZ ATION 05/14/2021 [facility] DATE CREATED AUTHOR AUTHOR'S ORGANIZ ATION 07/12/2022 [facility] Reason for Visit (unrecogniz ed section and content) Referral ID Status Reason Start Date Expiration Date V isits Requested Visits Authorized [id number] [facility] Required 05/13/2022 05/13/2023 1 1 Care Teams (unrecognized sec tion and content) FOR RECORDS PERTAINING TO PATIENTS WHO ARE OR HAVE BEEN ENROLLED IN A CHEMICAL DEPENDENCY/SUBSTANCEABUSE PROGRAM, SOME INFORMATION MAY BE OMITTED. This clinical summary was aggregated from multiple sources. Caution should be exercised in using it in the provision of clinical care. This summary normalizes information from multiple sources, and as a consequence, information in this document may materially change the coding, format and clinical context of patient data. In addition, data may be omitted in some cases. CLINICAL DECISIONS SHOULD BE BASED ON THE PRIMARY CLINICAL RECORDS. [employer] [facility]. provides no warranty or guarantee of the accuracy or completeness of information in this document.
== END | disposition home or self-care (01) ==
LOC: LABSPEC 11:55
PROVIDERS: PCP Pediatrics; Referring Provider Nurse Practitioner Women's Health; Visit Provider Nurse Practitioner Women's Health
DX: Z11.3 Encounter for screening for infections with a predominantly sexual mode of transmission (principal)
CPT/HCPCS: 87491; 87591

== ENCOUNTER → 2023-06-12 | Outpatient (CLI) | payer OTHER, MEDICAID, SELFPAY ==
--- NOTE | 2023-06-12 13:32 | US_ITS ---
INDICATION: bleeding, IUD check EXAMINATION: Ultrasound US Pelvis Non OB Complete With Transvaginal Imaging TECHNIQUE: Transabdominal and transvaginal pelvic ultrasound was performed. Grayscale, spectral waveform, and color flow Doppler evaluation of the adnexa. COMPARISON: No relevant prior comparison study available FINDINGS: UTERUS: Anteverted. The uterus measures 6.5 x 5.5 x 3.8 cm. There is no uterine mass. There is an IUD within the endometrial cavity with tip in the fundus. The endometrial stripe measures 2 mm in AP diameter which is within normal limits. RIGHT OVARY: The right ovary measures 1.4 x 2.2 x 2.8 cm. Non-enlarged, normal echogenicity. There is normal arterial inflow and venous outflow present in the right ovary. LEFT OVARY: The left ovary measures 3.4 x 3.1 x 2.1 cm. Non-enlarged, normal echogenicity. There is normal arterial inflow and venous outflow present in the left ovary. FREE FLUID: None. The bladder is not well distended. US/Pelvic (Non ) IMPRESSION: 1. IUD seen. 2. No significant abnormality is seen. Electronically Signed: Osvaldo Sullivan MD at 14:55 EST ,
--- OUTSIDE RECORDS SUMMARY | 2023-06-12 15:05 | XMS RPT_ITS | CCD ---
Author Name Unknown Address [address] [employer] [employer] [facility] [address] [place] [address] Organization [facility] Care Team Providers Care Time Motion Analyst Name Role Phone Erlinda Negrete DO Primary Care Provider Nandini Stark MD Unavailable [phone] ERLINDA NEGRETE Primary Care Unavailable ERLINDA NEGRETE [...] to adverse reactions 5 Other (See Comments) [facility] Problems Active Problems Problem Classification [...] Start: 06-05-2022 End: 06-05-2022 ambulatory MIKE ROBLES [facility] Start: 05-13-2022 End: 05-14-2022 ambulatory [facility] Start: 05-13-2022 End: 05-13-2022 ambulatory [facility] Start: 05-13-2022 End: 05-13-2022 Subsequent hospital visit by physician Nandini Stark MD Work Phone: [facility] Plan of Treatment Date Care Activity Detail Author Start: 06-09-2023 Tetanus Diphtheria a nd Pertussis Vaccines (7 - Td or Tdap) Tetanus Diphtheria and Pertussis Vaccines (7 - Td or Tdap) [facility] Start: 05-30-2022 End: 05-30-2022 Professional / ancillary services management 05/30/2022 Ancillary Procedure Visit Maternal Medicine Maternal Medicine Start: 12-20-2021 FLU (#1) FLU (#1) [facility] Start: 06-20-2021 Well Visit Well Visit [facility] Start: 03-18-2019 Hepatitis A (2 of 2 - 2-dose series) Hepatitis A (2 of 2 - 2-dose series) [facility] Start: 2017 MenB (1 of 2 - MenB 2-Dose Series Bexsero) MenB (1 of 2 - MenB 2-Dose Series Bexsero) [facility] Start: 01-21-2007 Varicella (2 of 2 - 2-dose childhood series) Varicella (2 of 2 - 2-dose childhood series) [facility] Start: 06-23-2002 COVID-19 (#1) COVID-19 (#1) [facility] End: 05-13-2022 Genetic Sendout: 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) [facility] Work Phone: Immunizations Immunization Date Immunization Notes Care Provider [facility] 09-15-2018 hepatitis A vaccine, pediatric/adolescent dosage, 2 dose schedule Nandini Stark MD Work Phone: [facility] 09-15-2018 meningococcal polysaccharide (groups A, C, Y and W-135) diphtheria toxoid conjugate vaccine (MCV4P) Nandini Stark MD Work Phone: [facility] 02-04-2014 Influenza Quadrivale nt (PF) Nandini Stark MD Work Phone: [facility] 10-07-2013 human papilloma viru s vaccine, quadrivalent Nandini Stark MD Work Phone: [facility] 06-09-2013 human papilloma viru s vaccine, quadrivalent Nandini Stark MD Work Phone: [facility] 06-09-2013 meningococcal polysaccharide (groups A, C, Y and W-135) diphtheria toxoid conjugate vaccine (MCV4P) Nandini Stark MD Work Phone: [facility] 06-09-2013 tetanus toxoid, redu maite diphtheria toxoid, and acellular pertussis vaccine, adsorbed Nandini Stark MD Work Phone: [facility] 04-07-2013 human papilloma viru s vaccine, quadrivalent Nandini Stark MD Work Phone: [facility] 04-07-2013 influenza virus vacc ine, unspecified formulation Nandini Stark MD Work Phone: [facility] 03-13-2012 influenza virus vacc ine, unspecified formulation Nandini Stark MD Work Phone: [facility] 03-08-2011 influenza virus vacc ine, unspecified formulation Nandini Stark MD Work Phone: [facility] 2006 diphtheria, tetanus toxoids and acellular pertussis vaccine Nandini Stark MD Work Phone: [facility] 2006 measles, mumps and rubella virus vaccine Nandini Stark MD Work Phone: [facility] 2006 poliovirus vaccine, inactivated Nandini Stark MD Work Phone: [facility] 07-04-2003 diphtheria, tetanus toxoids and acellular pertussis vaccine Nandini Stark MD Work Phone: [facility] 12-29-2002 haemophilus influenz ae type b vaccine, PRP-T conjugate Nandini Stark MD Work Phone: [facility] 12-29-2002 measles, mumps and rubella virus vaccine Nandini Stark MD Work Phone: [facility] 12-29-2002 pneumococcal conjuga te vaccine, 7 valent Nandini Stark MD Work Phone: [facility] 12-29-2002 varicella virus vaccine Ayana Stark MD Work Phone: [facility] 07-21-2002 diphtheria, tetanus toxoids and acellular pertussis vaccine Nandini Stark MD Work Phone: [facility] 07-21-2002 haemophilus influenz ae type b vaccine, PRP-T conjugate Nandini Stark MD Work Phone: [facility] 07-21-2002 hepatitis B vaccine, pediatric or pediatric/adolescent dosage Nandini Stark MD Work Phone: [facility] 07-21-2002 pneumococcal conjuga te vaccine, 7 valent Nandini Stark MD Work Phone: [facility] 07-21-2002 poliovirus vaccine, inactivated Nandini Stark MD Work Phone: [facility] 05-19-2002 diphtheria, tetanus toxoids and acellular pertussis vaccine Nandini Stark MD Work Phone: [facility] 05-19-2002 haemophilus influenz ae type b vaccine, PRP-T conjugate Nandini Stark MD Work Phone: [facility] 05-19-2002 pneumococcal conjuga te vaccine, 7 valent Nandini Stark MD Work Phone: [facility] 05-19-2002 poliovirus vaccine, inactivated Nandini Stark MD Work Phone: [facility] 02-22-2002 diphtheria, tetanus toxoids and acellular pertussis vaccine Nandini Stark MD Work Phone: [facility] 02-22-2002 haemophilus influenz ae type b vaccine, PRP-T conjugate Nandini Stark MD Work Phone: [facility] 02-22-2002 hepatitis B vaccine, pediatric or pediatric/adolescent dosage Nandini Stark MD Work Phone: [facility] 02-22-2002 pneumococcal conjuga te vaccine, 7 valent Nandini Stark MD Work Phone: [facility] 02-22-2002 poliovirus vaccine, inactivated Nandini Stark MD Work Phone: [facility] 2001 hepatitis B vaccine, pediatric or pediatric/adolescent dosage Nandini Stark MD Work Phone: [facility] Payers Date Payer Category Payer Unknown [id number] 2001 Unknown [id number] 2001 Unknown [id number] 2001 Unknown [id number] Unknown [id number] Unknown [id number] Social History Date Type Detail Facility [facility]: [facility] Start: 05-13-2022 Tobacco use and exposure Smokeless tobacco non-user [facility] Start: 05-13-2022 Alcohol intake Not Asked [facility] Start: 05-13-2022 Alcohol intake [facility] Start: 2001 Sex Assigned At Not on file A [facility] Progress note 12-13-2020 Note Date & Type Note Facility 12-13-2020 Note HNO ID: [id number] Author: Eleazar Jackson APRN.INFLATED PAD BUFFER Service: ? Author Type: Nurse Practitioner Type: [...] - LAPAROSCOPIC APPENDICOSTOMY ALLERGIES Enviromental [Other] MEDICATIONS Kkcpfdamjsabxdy-Dskbyevsc-ZC (BROMFED DM) 2-30-10 mg/5 mL syrup Take [...] 2019 CORONAVIRUS Agrees to plan Eleazar Jackson APRN.INFLATED PAD BUFFER [facility] Clinical Note 11-18-2020 Note Date & Type [...] Locations *1: This test was performed at: [address], [address] [place] [address] ([place]) Clinical Note 11-17-2020 Note Date & Type [...] Locations *1: This test was performed at: [address], [address] [place] [address] ([place]) Evaluation note Note Date & Type Note Facility documented in this encounter [facility] Summary Purpose Family History No Family History Records FoundNo Family History Records FoundNo Family History Records Found Advance Directives No Advanced Directives Records FoundNo Advanced Directives Records FoundNo Advanced Directives Records Found Reason for Referral Specialty Diagnoses / Procedures Referred By Mariia t Referred To Contact Lab Diagnoses Family history of blindness Family history of genetic disorder Procedures Genetic Sendout: [id number] known familial mutation [place] [address] Referral ID Status Reason Start Date Expiration Date V isits Requested Visits Authorized [id number] [facility] Required 05/13/2022 05/13/2023 1 1 Specialty Diagnoses / Procedures Referred By Contac t Referred To Contact Lab Diagnoses Attention deficit hyperactivity disorder (ADHD), unspecified ADHD type Oppositional defiant disorder Family history of chromosomal microdeletion Family history of blindness Family history of genetic disorder Procedures Genetic Sendout: 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) [place] [address] Referral ID Status Reason Start Date Expiration Date V isits Requested Visits Authorized [id number] [facility] Required 05/13/2022 05/13/2023 1 1 Additional Source Comments INFORMATION SOURCE (unrecogn ized section and content) DATE CREATED AUTHOR AUTHOR'S ORGANIZ ATION 05/14/2021 [facility] DATE CREATED AUTHOR AUTHOR'S ORGANIZ ATION 07/12/2022 [facility] Reason for Visit (unrecogniz ed section and content) Referral ID Status Reason Start Date Expiration Date V isits Requested Visits Authorized [id number] [facility] Required 05/13/2022 05/13/2023 1 [...] BE BASED ON THE PRIMARY CLINICAL RECORDS. [employer] [facility]. provides no warranty or guarantee of the accuracy or completeness of information in this document.
== END | disposition home or self-care (01) ==
LOC: US 13:31
PROVIDERS: PCP Pediatrics; Referring Provider Nurse Practitioner Women's Health; Visit Provider Nurse Practitioner Women's Health
DX: N93.9 Abnormal uterine and vaginal bleeding, unspecified (principal); Z30.431 Encounter for routine checking of intrauterine contraceptive device
CPT/HCPCS: 76830; 76856

== ENCOUNTER → 2023-09-03 | Outpatient (CLI) | payer OTHER, MEDICAID, SELFPAY | END | disposition home or self-care (01) | PROVIDERS: PCP Pediatrics; Referring Provider Nurse Practitioner Women's Health; Visit Provider Nurse Practitioner Women's Health | DX: Z11.3 Encounter for screening for infections with a predominantly sexual mode of transmission (principal); N93.9 Abnormal uterine and vaginal bleeding, unspecified | CPT/HCPCS: 87491; 87591 ==

== ENCOUNTER 2024-05-29 15:49 | Emergency (ER) | payer OTHER, MEDICAID, SELFPAY ==
[2024-05-29 15:50] VITALS: BP 143/72; PULSE 86; RESP 16; TEMP 36.6; O2SAT 99; BMI 35.9
[2024-05-29 17:05] LABS: Mucous, Urine 0 SEEN /hpf (<or=2+)
[2024-05-29 17:08] LABS: Absolute Lymphocyte Count 2.78 X10^3/uL (0.83-4.51); Absolute Neutrophil Count 4.9 X10^3/uL (2.0-7.7); Basophil# 0.05 X10^3/uL; Basophil% 0.6 % (0-1); Eosinophil# 0.21 X10^3/uL; Eosinophils% 2.4 % (0-5); Hematocrit 40.1 % (37-47); Hemoglobin 13.2 g/dL (12.0-15.0); Lymphocyte # 2.78 X10^3/ul (0.83-4.51); Lymphocyte % 31.8 % (19-41); Mean Corp Hgb Conc 32.9 g/dL (32-36); Mean Corpuscular Hgb 27.4 pg (27.0-32.0); Mean Corpuscular Volume 83.4 fL (81-99); Mean Platelet Vol. 9.2 fl (6.2-12.0); Monocyte# 0.84 X10^3/uL; Monocyte% 9.6 % (0-10); NRBC Flagged by Analyzer 0 % (0-5); Neutrophil # 4.85 X10^3/uL (2.7-7.7); Neutrophil % 55.4 % (47-70); Platelet Count 317 K/mm3 (150-450); RBC Distribution Width CV 12.9 % (11.6-14.6); RBC Distribution Width SD 39.1 fl (35.1-43.9); Red Blood Count 4.81 M/mm3 (4.2-5.4); White Blood Count 8.8 K/mm3 (4.4-11.0)
[2024-05-29 17:09] LABS: Color, Urine Yellow (Yellow); Glucose, Dipstick Normal (Normal); Ketone-Dipstick Negative (Negative); Leukocyte Esterase-Dipstick 25 /ul (Negative); Nitrite-Dipstick Negative (Negative); Occult Blood-Urine Negative /ul (Negative); Protein-Dipstick 15 mg/dl (Negative); Specific Gravity, Urine 1.015 (1.002-1.030); Urine Bilirubin Dipstick Negative (Negative); Urine Clarity Sl. Cloudy (Clear); Urine Urobilinogen 1 mg/dl (Normal)
[2024-05-29] MEDS: Ketorolac 15 MG/ML Vial IV (17:09)
--- NOTE | 2024-05-29 17:11 | ED.VIS.GI ---
HPI <LUCIO Holden - Last Filed: 05/29/24 20:06> HPI - GI History of Present Illness Chief Complaint: Abd Pain Narrative Narrative: Patient presenting today with right upper quadrant abdominal pain she has had over the past week and a half. She reports that the pain has been intermittent except over the past 3 days it has been more constant. She does feel it is sometimes worse after eating. She did eat Chipot[employer] about 3 hours ago and her pain is now worse. She has had occasional nausea. She denies fevers, chills, vomiting, diarrhea, and urinary symptoms. She reports that she is currently trying to get . Previous abdominal surgery includes appendectomy. PFSH <LUCIO Holden - Last Filed: 05/29/24 20:06> PFSH Medical History Vaginal delivery Chlamydia infection affecting Rh negative status during Abnormal glucose affecting Environmental allergies Home Medications ?Medication ?Instructions ?Recorded ?Last Taken ?Type multivitamin no.47-iron fum 27 1 cap PO DAILY #90 caps 05/21/22 Unknown Rx mg-folate no.1 1 mg-dha 300 mg capsule (Virt-PN DHA) Allergy/AdvReac Type Severity Reaction Status Date / Time No Known Allergies Allergy Verified 05/29/24 16:41 Family History Sister Seizures absent sz epilepsy sz Surgical History Hx of appendectomy History of appendectomy Social History adopted: No household members: significant other housing: house current occupational status: unemployed current occupational exposures/hazards: No pets and animals: No history of recent travel: No sexually active: Yes Smoking Status: Former smoker quit date: 11/19/21 Tobacco: How many years used: 6 second hand exposure: No alcohol intake: never substance use type: does not use well-balanced diet: daily or most days caffeine: Yes (1 cup ) Type: coffee seatbelt use: always do you feel safe at home: No additional social history: fianc? - Maicol MOYER <LUCIO Holden - Last Filed: 05/29/24 20:06> ROS ED Constitutional Constitutional ED: Denies chills or fever(s) Cardiovascular Cardiovascular: Denies chest pain Respiratory/Chest Respiratory/Chest: Denies cough or dyspnea Gastrointestinal Gastrointestinal: Reports abdominal pain and nausea; Denies constipation, diarrhea or vomiting Genitourinary Genitourinary ED: Denies dysuria, hematuria or urinary urgency Musculoskeletal Musculoskeletal: Denies arthralgias or myalgias Integumentary Denies rash Neurologic Neurologic: Denies weakness EXAM <LUCIO Holden - Last Filed: 05/29/24 20:06> Physical Exam Const Vital Signs: 05/29/24 15:50 05/29/24 18:15 05/29/24 18:28 Temperature 97.8 F 97.8 F Temperature Source Oral Pulse Rate 86 64 64 Respiratory Rate 16 16 16 Blood Pressure 143/72 H 116/61 116/61 Blood Pressure Mean 95 79 79 Pulse Ox 99 99 99 Oxygen Delivery Method Room Air Room Air Positive well nourished, well developed and no apparent distress General Appearance ED: well developed HEENT Reports normocephalic and head/scalp atraumatic Mouth ED: Yes moist mucous membranes normal Eyes PERRL and EOMs intact bilaterally Neck full ROM and supple Chest Wall inspection of chest normal Resp normal respiratory effort and clear to auscultation bilaterally Cardio regular rate and regular rhythm GI soft to palpation, non-distended and no masses GI Narrative: Tenderness to the right upper quadrant with a positive Patino sign. Otherwise abdomen is soft and nontender. Back/Spine normal ROM and normal to inspection Extremity normal to inspection and full ROM Neuro oriented x3, CN's II-XII intact bilaterally, moves all extremities, no focal motor deficits and no sensory deficits noted Sensorium / Orientation: awake and alert Psych mental status grossly normal and thought process normal Skin no rashes or lesions noted and no wounds <Dr. Juve Ribera MD - Last Filed: 05/29/24 23:23> Physical Exam Const Vital Signs: 05/29/24 15:50 05/29/24 18:15 05/29/24 18:28 Temperature 97.8 F 97.8 F Temperature Source Oral Pulse Rate 86 64 64 Respiratory Rate 16 16 16 Blood Pressure 143/72 H 116/61 116/61 Blood Pressure Mean 95 79 79 Pulse Ox 99 99 99 Oxygen Delivery Method Room Air Room Air [facility] <LUCIO Holden - Last Filed: 05/29/24 20:06> [facility] Narrative Medical decision making narrative: Patient presenting with right upper quadrant abdominal pain she has had over the past week and a half that has been worse over the past 3 days. She is nontoxic appearing. Vitals are unremarkable. She did just eat about 3 hours ago. Because she just ate, we unable to obtain a ultrasound at this time. Labs obtained and patient given Toradol for pain. Patient CBC, CMP, lipase, and UA are unremarkable. Serum is negative. Given her liver enzymes are normal and she has no leukocytosis, I do not feel she needs an emergent ultrasound. I will give her a prescription to have an outpatient ultrasound obtained. She was instructed to not eat 6 hours prior to having this test performed. I recommended she follow-up closely with her PCP, strict return instructions were discussed. Patient discharged home in stable condition. I have personally performed a face to face assessment of the patient and have reviewed the MELQUIADES Note. I performed a substantive portion of the visit including all aspects of the following. My parish findings include: History is remarkable for epigastric right upper quadrant pain. This occurred after she had [place]. She denies intolerance to greasy or fried foods. Mother had cholecystectomy. She has not been in the last 6 to 9 months. She denies pain rating through to her back. She denies black or maroon-colored stool. She denies cardiac or respiratory symptoms. Exam is patient's BMI is 35.9. She appears in no distress. HEENT is gross unremarkable. Lungs are clear to auscultation with symmetric breath sounds. Heart is regular. Rate is normal. There are no murmur, gallop or rub. Abdominal exam is remarkable tenderness in the epigastric right upper quadrant with clinical Patino sign. Her abdominal exam is otherwise unremarkable. No dermatologic lesions noted. Medical Decision Making differential diagnosis would be gastritis, reflux, peptic ulcer disease, biliary disease, liver disease. Appropriate blood work was ordered. If liver enzymes white count is elevated we will hold patient until 8-10 o'clock since she ate at 2:00. Otherwise we will set patient up for outpatient ultrasound. Other additions or changes: [None] Lab Data Attestation: I reviewed the patient's lab results. Labs: Laboratory Results - last 24 hr 05/29/24 16:50 WBC 8.8 RBC 4.81 Hgb 13.2 Hct 40.1 MCV 83.4 MCH 27.4 MCHC 32.9 RDW Std Deviation 39.1 RDW Coeff of Arben 12.9 Plt Count 317 MPV 9.2 Immature Gran % (Auto) 0.200 Neut % (Auto) 55.4 Lymph % (Auto) 31.8 Bryan % (Auto) 9.6 Eos % (Auto) 2.4 Baso % (Auto) 0.6 Absolute Neuts (auto) 4.9 Absolute Lymphs (auto) 2.78 Nucleated RBC % 0 Sodium 140 Potassium 3.7 Chloride 107 Carbon Dioxide 26.0 Anion Gap 7 BUN 10 Creatinine 0.70 Estim Creat Clear Calc 135.76 Est GFR (MDRD) Af Amer 133 Est GFR (MDRD) Non-Af 110 BUN/Creatinine Ratio 14.2 Glucose 113 H Calcium 9.7 Total Bilirubin 0.30 AST 15 ALT 15 Alkaline Phosphatase 75 Total Protein 7.8 Albumin 3.9 Globulin 3.9 Albumin/Globulin Ratio 1.0 Lipase 26 L Serum , Qual NEGATIVE Urine Color Yellow Urine Clarity Sl. Cloudy Urine pH 7.0 Ur Specific [place] 1.015 Urine Protein 15 H Urine Glucose (UA) Normal Urine Ketones Negative Urine Occult Blood Negative Urine Nitrite Negative Urine Bilirubin Negative Urine Urobilinogen 1 H Ur Leukocyte Esterase 25 H Urine RBC 0-5 SEEN Urine WBC 5-10 SEEN Ur Squamous Epith Cells 5-10 SEEN Amorphous Sediment 1+ PHOS Urine Bacteria RARE Urine Mucus 0 SEEN <Dr. Juve Ribera MD - Last Filed: 05/29/24 23:23> [facility] Narrative Medical decision making narrative: Patient presenting with right upper quadrant abdominal pain she has had over the past week and a half that has been worse over the past 3 days. She is nontoxic appearing. Vitals are unremarkable. She did just eat about 3 hours ago. Because she just ate, we unable to obtain a ultrasound at this time. Labs obtained and patient given Toradol for pain. I have personally performed a face to face assessment of the patient and have reviewed the MELQUIADES Note. I performed a substantive portion of the visit including all aspects of the following. My parish findings include: History is remarkable for epigastric right upper quadrant pain. This occurred after she had [place]. She denies intolerance to greasy or fried foods. Mother had cholecystectomy. She has not been in the last 6 to 9 months. She denies pain rating through to her back. She denies black or maroon-colored stool. She denies cardiac or respiratory symptoms. Exam is patient's BMI is 35.9. She appears in no distress. HEENT is gross unremarkable. Lungs are clear to auscultation with symmetric breath sounds. Heart is regular. Rate is normal. There are no murmur, gallop or rub. Abdominal exam is remarkable tenderness in the epigastric right upper quadrant with clinical Patino sign. Her abdominal exam is otherwise unremarkable. No dermatologic lesions noted. Medical Decision Making differential diagnosis would be gastritis, reflux, peptic ulcer disease, biliary disease, liver disease. Appropriate blood work was ordered. If liver enzymes white count is elevated we will hold patient until 8-10 o'clock since she ate at 2:00. Otherwise we will set patient up for outpatient ultrasound. Other additions or changes: [None] Lab Data Labs: Laboratory Results - last 24 hr 05/29/24 16:50 WBC 8.8 RBC 4.81 Hgb 13.2 Hct 40.1 MCV 83.4 MCH 27.4 MCHC 32.9 RDW Std Deviation 39.1 RDW Coeff of Arben 12.9 Plt Count 317 MPV 9.2 Immature Gran % (Auto) 0.200 Neut % (Auto) 55.4 Lymph % (Auto) 31.8 Bryan % (Auto) 9.6 Eos % (Auto) 2.4 Baso % (Auto) 0.6 Absolute Neuts (auto) 4.9 Absolute Lymphs (auto) 2.78 Nucleated RBC % 0 Sodium 140 Potassium 3.7 Chloride 107 Carbon Dioxide 26.0 Anion Gap 7 BUN 10 Creatinine 0.70 Estim Creat Clear Calc 135.76 Est GFR (MDRD) Af Amer 133 Est GFR (MDRD) Non-Af 110 BUN/Creatinine Ratio 14.2 Glucose 113 H Calcium 9.7 Total Bilirubin 0.30 AST 15 ALT 15 Alkaline Phosphatase 75 Total Protein 7.8 Albumin 3.9 Globulin 3.9 Albumin/Globulin Ratio 1.0 Lipase 26 L Serum , Qual NEGATIVE Urine Color Yellow Urine Clarity Sl. Cloudy Urine pH 7.0 Ur Specific [place] 1.015 Urine Protein 15 H Urine Glucose (UA) Normal Urine Ketones Negative Urine Occult Blood Negative Urine Nitrite Negative Urine Bilirubin Negative Urine Urobilinogen 1 H Ur Leukocyte Esterase 25 H Urine RBC 0-5 SEEN Urine WBC 5-10 SEEN Ur Squamous Epith Cells 5-10 SEEN Amorphous Sediment 1+ PHOS Urine Bacteria RARE Urine Mucus 0 SEEN Discharge Plan Triage Chief Complaint: Abd Pain ED Midlevel Provider: Geraldine Lawson ED Provider: Juve Ribear Dx/Rx/DC Orders Clinical Impression: Abdominal pain, RUQ Instructions: Abdominal Pain Prescriptions: No Action Virt-PN DHA 27 mg iron-1 mg -300 mg capsule 1 cap PO DAILY Qty: 90 3RF Other Ambulatory Orders: Gallbladder (Routine) Facility: [facility] - Location: [facility] Ordered By: Geraldine Lawson Primary Care Provider: Carli Copeland Referrals: Carli Copeland MD [Primary Care Provider] - 5-7 Days Activity Restrictions/Additional Instructions: Please return to the hospital on Friday to have an outpatient gallbladder ultrasound performed. I have given you the slip for this. Follow-up with your PCP. Print Language: Bruneian Disposition Disposition: Home, Self Care Discharge Date/Time: 05/29/24 18:35
[2024-05-29 17:23] LABS: Internal QC Validated? YES +Cl - CLEAR BKGD; Pregnancy, Serum, hCG Quali. NEGATIVE Negative
[2024-05-29 17:30] LABS: AST(SGOT) 15 U/L (15-37); Alanine Aminotransfer ALT/SGPT 15 U/L (13-56); Albumin, Serum 3.9 g/dL (3.2-5.0); Alkaline Phosphatase 75 U/L (45-117); Anion Gap 7 (5-15); BUN 10 mg/dL (7-18); BUN/Creat Ratio 14.2 RATIO (10-20); Calcium,Total 9.7 mg/dL (8.5-10.1); Chloride 107 mmol/L (98-107); EST Glomerular Filtration Rate 110 mL/min (>60); Est Glom Filt Rate - Afr Amer 133 mL/min (>60); Estimated Creatinine Clearance 135.76 ml/min; Globulin 3.9 g/dL (2.2-4.2); Glucose 113 mg/dL (74-106); Lipase 26 U/L (73-393); Potassium 3.7 mmol/L (3.5-5.1); Protein, Total 7.8 g/dL (6.4-8.2); Sodium Level 140 mmol/L (136-145)
[2024-05-29 18:00] LABS: Amorphous Sediment 1+ PHOS
[2024-05-29 18:01] LABS: Squamous Epithelial Cells - UA 5-10 SEEN /hpf (5-10)
[2024-05-29 18:03] LABS: Red Blood Cells-Urine 0-5 SEEN /hpf (0-5); White Blood Cells 5-10 SEEN /hpf (0-5)
[2024-05-29 18:04] LABS: Bacteria RARE /hpf (None Seen)
[2024-05-29 18:15] VITALS: BP 116/61; PULSE 64; RESP 16; O2SAT 99
[2024-05-29 18:28] VITALS: BP 116/61; PULSE 64; RESP 16; TEMP 36.6; O2SAT 99
== END 2024-05-29 18:35 | disposition home or self-care (01) ==
PROVIDERS: Physician Assistant; Emergency Provider Emergency Medicine; PCP Pediatrics; Visit Provider Emergency Medicine
DX: R10.11 Right upper quadrant pain (principal); Z87.891 Personal history of nicotine dependence
CPT/HCPCS: 80053; 81001; 83690; 84703; 85025; 96374; 99283; A4216

== ENCOUNTER → 2024-06-02 | Outpatient (CLI) | payer OTHER, MEDICAID, SELFPAY ==
--- NOTE | 2024-06-02 09:26 | US_ITS ---
PROCEDURE: Right upper quadrant sonogram. REASON FOR EXAM: Right upper quadrant pain. COMPARISON: None FINDINGS: Liver: Mild degree of fatty infiltration. Gallbladder: No stones, sludge, wall thickening or tenderness. Common bile duct: Normal measuring it measures 2.6 cm.. Pancreas: Visualized portions are sonographically unremarkable. Visualized portions of the right kidney are unremarkable. No right upper quadrant ascites. US/Gallbladder IMPRESSION: Mild degree of fatty infiltration of the liver. Reading Location: [place] [address]
== END | disposition home or self-care (01) ==
PROVIDERS: Referring Provider Physician Assistant; Visit Provider Physician Assistant
DX: R10.11 Right upper quadrant pain (principal)
CPT/HCPCS: 76705

== ENCOUNTER → 2024-08-13 | Outpatient (CLI) | payer OTHER, SELFPAY ==
[2024-08-16 21:07] LABS: Chlamydia By Nucleic Acid AMP Negative (Negative); Gonococcus By Nucleic Acid AMP Negative (Negative)
== END | disposition home or self-care (01) ==
LOC: LABSPEC 16:25
PROVIDERS: Referring Provider Obstetrics & Gynecology; Visit Provider Obstetrics & Gynecology
DX: O09.90 Supervision of high risk pregnancy, unspecified, unspecified trimester (principal); Z3A.00 Weeks of gestation of pregnancy not specified
CPT/HCPCS: 87086; 87088; 87491; 87591; 88175; G0145

== ENCOUNTER → 2024-08-30 | Outpatient (CLI) | payer OTHER, SELFPAY ==
[2024-08-30 10:54] LABS: Absolute Lymphocyte Count 2.07 X10^3/uL (0.83-4.51); Absolute Neutrophil Count 4.8 X10^3/uL (2.0-7.7); Basophil# 0.04 X10^3/uL; Basophil% 0.5 % (0-1); Eosinophil# 0.09 X10^3/uL; Eosinophils% 1.2 % (0-5); Hematocrit 38.1 % (37-47); Hemoglobin 12.6 g/dL (12.0-15.0); Lymphocyte # 2.07 X10^3/ul (0.83-4.51); Lymphocyte % 27.2 % (19-41); Mean Corp Hgb Conc 33.1 g/dL (32-36); Mean Corpuscular Hgb 28.6 pg (27.0-32.0); Mean Corpuscular Volume 86.4 fL (81-99); Mean Platelet Vol. 9.9 fl (6.2-12.0); Monocyte# 0.56 X10^3/uL; Monocyte% 7.3 % (0-10); NRBC Flagged by Analyzer 0 % (0-5); Neutrophil # 4.83 X10^3/uL (2.7-7.7); Neutrophil % 63.4 % (47-70); Platelet Count 270 K/mm3 (150-450); RBC Distribution Width CV 13.1 % (11.6-14.6); RBC Distribution Width SD 40.9 fl (35.1-43.9); Red Blood Count 4.41 M/mm3 (4.2-5.4); White Blood Count 7.6 K/mm3 (4.4-11.0)
[2024-08-30 11:24] LABS: Hemoglobin A1c 5.1 % (<=5.6)
[2024-08-30 11:39] LABS: HIV Nonreactive (Nonreactive); Hepatitis C Antibody Nonreactive (Nonreactive); Rubella IgG REAC (Nonreactive); Syphilis Antibodies Nonreactive (Nonreactive)
[2024-09-01 19:22] LABS: Hepatitis B Surface Antigen Nonreactive (Nonreactive)
== END | disposition home or self-care (01) ==
PROVIDERS: Referring Provider Obstetrics & Gynecology; Visit Provider Obstetrics & Gynecology
DX: Z34.90 Encounter for supervision of normal pregnancy, unspecified, unspecified trimester (principal)
CPT/HCPCS: 36415; 83036; 85025; 86703; 86762; 86780; 86803; 86850; 86900; 86901; 87340

== ENCOUNTER → 2025-01-31 | Outpatient (CLI) | payer OTHER, SELFPAY | END | disposition home or self-care (01) | LOC: BWCLAB 11:35 | PROVIDERS: Referring Provider Obstetrics & Gynecology; Visit Provider Obstetrics & Gynecology | DX: Z00.00 Encounter for general adult medical examination without abnormal findings (principal) | CPT/HCPCS: 36415; 82950; 86703; 86780; 86850; 86900; 86901 ==

== ENCOUNTER → 2025-01-31 | Outpatient (CLI) | payer OTHER, SELFPAY ==
--- NOTE | 2025-01-31 11:57 | US_ITS ---
PROCEDURE: OB LIMITED WITH BIOMETRICS 01/31/2025 REASON FOR EXAM: UNABLE TO DO GLUCOLA TEST TECHNIQUE: Procedure Code: [id number] Modality: US Procedure: OB LIMITED WITH BIOMETRICS COMPARISON: None FINDINGS Number: 1 Position: Vertex Placental Position: Anterior and not low-lying Placental Abnormalities: No evidence of previa. DIMENSIONS: Biparietal Diameter: 8 cm: 32 weeks and 2 days: 38 percentile/ Head Circumference: 30.7 cm: 34 weeks and 2 days: 62nd percentile/ Abdominal Circumference: 29.9 cm: 33 weeks and 5 days: 84 percentile/ Femur Length: 6 cm: 31 weeks and 3 days: 15 percentile/ ESTIMATED WEIGHT: 2081 g plus/-312 g ESTIMATED WEIGHT PERCENTILE (24+ weeks): 55.6 ESTIMATED GESTATIONAL AGE: Baseline: 32 weeks and 3 days By Ultrasound: 33 weeks and 4 days ESTIMATED DATE OF DELIVERY: Baseline: March 25, 2025 By Ultrasound: March 17, 2025 BIOPHYSICAL ASSESSMENT: Amniotic Fluid Volume: 5.4 cm Amniotic Fluid Index: 14.2 (8-24 cm normal range) Cardiac Motion: 133 beats per minute (average) Trunk and Limb Motion: Present. MATERNAL ANATOMY: Adnexa: Neither maternal ovary is successfully identified. US/OB Limited With Biometrics IMPRESSION: Single live intrauterine gestation with a mean gestational age of 33 weeks and 4 days. Reading Location: [place] [address]
== END | disposition home or self-care (01) ==
LOC: US 11:54
PROVIDERS: Referring Provider Obstetrics & Gynecology; Visit Provider Obstetrics & Gynecology
DX: O09.92 Supervision of high risk pregnancy, unspecified, second trimester (principal); Z3A.00 Weeks of gestation of pregnancy not specified
CPT/HCPCS: 76816

== ENCOUNTER → 2025-02-07 | Outpatient (CLI) | payer OTHER, SELFPAY ==
[2025-02-07 12:11] LABS: Hematocrit 32.6 % (37-47); Hemoglobin 10.7 g/dL (12.0-15.0); Immature Granulocytes Count 0.050 X10^3/uL (0.0-0.0); Mean Corp Hgb Conc 32.8 g/dL (32-36); Mean Corpuscular Volume 84.9 fL (81-99); Mean Platelet Vol. 9.6 fl (6.2-12.0); NRBC Flagged by Analyzer 0 % (0-5); Platelet Count 253 K/mm3 (150-450); RBC Distribution Width CV 12.8 % (11.6-14.6); RBC Distribution Width SD 39.4 fl (35.1-43.9); Red Blood Count 3.84 M/mm3 (4.2-5.4); White Blood Count 8.9 K/mm3 (4.4-11.0)
[2025-02-07 12:52] LABS: HIV Nonreactive (Nonreactive); Syphilis Antibodies Nonreactive (Nonreactive)
== END | disposition home or self-care (01) ==
LOC: BWCLAB 10:54
PROVIDERS: Visit Provider Obstetrics & Gynecology
DX: O09.92 Supervision of high risk pregnancy, unspecified, second trimester (principal); Z3A.00 Weeks of gestation of pregnancy not specified
CPT/HCPCS: 36415; 85025; 86703; 86780

== ENCOUNTER → 2025-02-28 | Outpatient (CLI) | payer OTHER, SELFPAY | END | disposition home or self-care (01) | LOC: LABSPEC 16:07 | PROVIDERS: Visit Provider Advanced Practice Midwife | DX: O09.92 Supervision of high risk pregnancy, unspecified, second trimester (principal); Z3A.00 Weeks of gestation of pregnancy not specified | CPT/HCPCS: 87081 ==

== ENCOUNTER → 2025-03-01 | Outpatient (CLI) | payer OTHER, SELFPAY ==
--- NOTE | 2025-03-01 15:28 | US_ITS ---
PROCEDURE: OB LIMITED WITH BIOMETRICS 03/01/2025 REASON FOR EXAM: GDM- GROWTH TECHNIQUE: Procedure Code: [id number] Modality: US Procedure: OB LIMITED WITH BIOMETRICS COMPARISON: none FINDINGS Cephalic position with cardiac activity of 137 bpm. Maximum vertical pocket of 3.6 cm and SEBASTIAN of 15 cm. Placenta is anterior position with grade 2. BPD of 8.8, OFD of the 11.9, HC of 34, AC of 31.5, and FL of 7 cm corresponding with average gestational age of 36 weeks and 5 day with TAY of 03/24/2025. Biometric measurement are within normal limits. Estimated weight of 2746 g (31 percentile). US/OB Limited With Biometrics IMPRESSION: average gestational age of 36 weeks and 5 day with TAY of 03/24/2025. Biometric measurement are within normal limits. Reading Location: [id number]
== END | disposition home or self-care (01) ==
LOC: US 15:26
PROVIDERS: Referring Provider Advanced Practice Midwife; Visit Provider Advanced Practice Midwife
DX: O24.419 Gestational diabetes mellitus in pregnancy, unspecified control (principal); Z3A.00 Weeks of gestation of pregnancy not specified
CPT/HCPCS: 76816

== ENCOUNTER 2025-03-14 09:50 | Outpatient (CLI) | payer OTHER, SELFPAY ==
--- NOTE | 2025-03-14 10:05 | US_ITS ---
PROCEDURE: OB BIOPHYSICAL PROF W/O NST 03/14/2025 REASON FOR EXAM: DECELERATION IN OFFICE TECHNIQUE: Procedure Code: [id number] Modality: US Procedure: OB BIOPHYSICAL PROF W/O NST COMPARISON: Prior examination dated March 01, 2025. FINDINGS Number: 1 Position: Vertex Placental Position: Anterior and not low-lying Placental Abnormalities: No evidence of previa. ESTIMATED GESTATIONAL AGE: Baseline: 38 weeks and 2 days ESTIMATED DATE OF DELIVERY: Baseline: March 25, 2025. BIOPHYSICAL ASSESSMENT: Amniotic Fluid Volume: 4.4 cm Amniotic Fluid Index: 6.4 (8-24 cm normal range) Cardiac Motion: 144 beats per minute (average) Trunk and Limb Motion: Present. Biophysical profile: breathing movements: 2 Gross body movements: 2 tone: 2 Amniotic Fluid: 2 Total score: 8/8 US/OB Biophysical Prof W/O NST IMPRESSION: Normal biophysical profile. Reading Location: [place] [id number]
[2025-03-14 10:41] VITALS: BMI 37.0
[2025-03-14 10:44] VITALS: PULSE 93; O2SAT 98
[2025-03-14 10:45] VITALS: BP 106/55; PULSE 81
--- NOTE | 2025-03-14 11:41 | OB.TRI.PN ---
Progress Notes Progress Note: 24 year old at 38w3d sent to triage from the office due a deceleration on NST for GDMA2. Good movement. No contractions, leakage of fluid, or vaginal bleeding. NST FHR Rate Baby A Baseline: 140 Variability:: Moderate Accelerations:: 15 x 15 Decelerations:: None NST Reactive:: Yes FHR Category:: Category I Uterine Activity:: quiet
== END 2025-03-14 11:33 | disposition home or self-care (01) ==
LOC: WPOUT 10:01 → WP 10:01
PROVIDERS: Referring Provider Student in an Organized Health Care Education/Training Program; Visit Provider Student in an Organized Health Care Education/Training Program
DX: O36.8330 Maternal care for abnormalities of the fetal heart rate or rhythm, third trimester, not applicable or unspecified (principal); Z79.84 Long term (current) use of oral hypoglycemic drugs; Z3A.38 38 weeks gestation of pregnancy
CPT/HCPCS: 59025; 59050; 76819; 99221; G0378

== ENCOUNTER 2025-03-21 10:15 | Inpatient (IN) | payer OTHER, SELFPAY ==
[2025-03-21] VITALS (9 sets, daily range): BP systolic 115–128; BP diastolic 58–73; PULSE 75–96; RESP 16; TEMP 36.6–37.2; O2SAT 98; BMI 37.5
[2025-03-21] MEDS: Lactated Ringers 1,000 ML 50 ML IV (11:45)
[2025-03-21 12:03] LABS: Hematocrit 31.8 % (37-47); Hemoglobin 10.2 g/dL (12.0-15.0); Immature Granulocytes Count 0.070 X10^3/uL (0.0-0.0); Mean Corp Hgb Conc 32.1 g/dL (32-36); Mean Corpuscular Volume 80.9 fL (81-99); Mean Platelet Vol. 9.4 fl (6.2-12.0); NRBC Flagged by Analyzer 0 % (0-5); Platelet Count 274 K/mm3 (150-450); RBC Distribution Width CV 13.9 % (11.6-14.6); RBC Distribution Width SD 40.7 fl (35.1-43.9); Red Blood Count 3.93 M/mm3 (4.2-5.4); White Blood Count 10.6 K/mm3 (4.4-11.0)
--- OUTSIDE RECORDS SUMMARY | 2025-03-21 12:39 | XMS RPT_ITS | CCD ---
Author Organization [facility] Care Team Providers Care Planishing Hammer Operator Name Role Phone Erlinda Negrete DO Primary Care Provider Nandini Herzog MD [phone] BRIGETTE PACKER Attending Unavailable ERLINDA NEGRETE Primary Care Unavailable AVELINA CUI Referring Unavailable Care Physician, No Primary Referring Unava ilable Care Physician, No Primary Primary Care Unava ilable Avelina Cui Attending Unavailable Gema JOB SPOTTER, [place] Attending Unavailable Care Physician, No Primary Primary Care Unava ilable Care Physician, No Primary Referring Unava ilable Care Physician, No Primary Primary Care Unava ilable Avelina Cui Attending Unavailable Care Physician, No Primary Referring Unava ilable Care Physician, No Primary Primary Care Unava ilable Avelina Cui Attending Unavailable Care Physician, No Primary Referring Unava ilable Iastu Liu Attending Unavailable Isatu Liu Referring Unavailable Isatu Liu Attending Unavailable Care Physician, No Primary Referring Unava ilable Avelina Cui Attending Unavailable Care Physician, No Primary Referring Unava ilable Josey Munson Attending Unavailabl e Care Physician, No Primary Primary Care Unava ilable Care Physician, No Primary Referring Unava ilable Care Physician, No Primary Primary Care Unava ilable Avelina Cui Attending Unavailable Isatu Liu Attending Unavailable Care Physician, No Primary Primary Care Unava ilable Care Physician, No Primary Referring Unava ilable Sharmilae Josey Escalante Attending Unavailabl e Tanisha VelJosey kline Referring Unavailabl e Care Physician, No Primary Primary Care Unava ilable Josey Munson Referring Unavailabl e Josey Munson Attending Unavailabl e Care Physician, No Primary Primary Care Unava ilable Vande Velde, Josey Referring Unavailabl e Tanisha Escalante, Josey Attending Unavailabl e Care Physician, No Primary Primary Care Unava ilable Care Physician, No Primary Primary Care Unava ilable Geraldine Lawson Referring Unavailable Geraldnie Lawson Attending Unavailable Care Physician, No Primary Referring Unava ilable Care Physician, No Primary Primary Care Unava ilAvelina Manzo Attending Unavailable Care Physician, No Primary Primary Care Unava ilable Care Physician, No Primary Referring Unava ilable Josey Munson Attending Unavailabl e Care Physician, No Primary Referring Unava ilable Care Physician, No Primary Primary Care Unava ilable Avelina Cui Attending Unavailable Bacilio, Juve Attending Unavailable Carli Copeland Primary Care Unavailable Care Physician, No Primary Primary Care Unava ilable Isatu Liu Attending Unavailable Care Physician, No Primary Primary Care Unava ilAvelina Manzo Referring Unavailable Avelina Cui Attending Unavailable Care Physician, No Primary Primary Care Unava ilAvelina Manzo Attending Unavailable Care Physician, No Primary Primary Care Unava ilable Care Physician, No Primary Referring Unava ilable Isatu Liu Attending Unavailable Care Physician, No Primary Primary Care Unava ilable Care Physician, No Primary Referring UnaAvelina Kearns Attending Unavailable Care Physician, No Primary Primary Care Unava ilable Care Physician, No Primary Referring Avelina Asekw Attending Unavailable Care Physician, No Primary Primary Care Unava ilable Care Physician, No Primary Referring Avelina Askew Attending Unavailable Care Physician, No Primary Primary Care Unava ilable Care Physician, No Primary Referring Avelina Askew Attending Unavailable Care Physician, No Primary Primary Care Unava ilable Isatu Liu Attending Unavailable Care Physician, No Primary Referring Unava ilable Care Physician, No Primary Primary Care Unava ilable Avelina Cui Attending Unavailable Allergies Allergy Classification Reported Allergen(s) Allergy Type Date of Onset Reaction(s) Facility (2 sources) Seasonal allergy; Translations: [SEASONAL ALLERGIES] Propensity to adverse reactions 5 Other (See Comments) [facility] Problems Active Problems Problem Classification Problem Date Documented Date Episodic/Chronic Attention-deficit, conduct, and disruptive behavior disorders (2 sources) Attention deficit hyperactivity disorder; Translations: [Attention-deficit hyperactivity disorder, unspecified type] Onset: 07-15-2013 Chronic Attention-deficit, conduct, and disruptive behavior disorders (2 sources) Oppositional defiant disorder; Translations: [Oppositional defiant disorder] Onset: 07-15-2013 Resolved: 06-20-2020 Chronic Diabetes or abnormal glucose tolerance complicating ; childbirth; or the puerperium (2 sources) Gestational diabetes mellitus in , unspecified control; Translations: [Gestational diabetes mellitus in , unspecified control] Onset: 02-28-2025 Episodic Other complications of (2 sources) Supervision of high risk , unspecified, second trimester; Translations: [Supervision of high risk , unspecified, second trimester] Onset: 02-28-2025 Episodic Other complications of (1 source) Other specified related conditions, unspecified trimester; Translations: [Other specified related conditions, unspecified trimester] Onset: 02-28-2025 Episodic Other infections; including parasitic (1 source) Personal history of other infectious and parasitic diseases; Translations: [Personal history of other infectious and parasitic diseases] Onset: 02-28-2025 Episodic Residual codes; unclassified (1 source) FH: Chromosomal anomaly; Translations: [Family history of other congenital malformations, deformations and chromosomal abnormalities] Episodic Residual codes; unclassified (1 source) FH: Blindness; Translations: [Family history of blindness and visual loss] Episodic Residual codes; unclassified (1 source) Family history of hereditary disease; Translations: [Family history of other specified conditions] Episodic Residual codes; unclassified (1 source) 36 weeks gestation of ; Translations: [36 weeks gestation of ] Onset: 02-28-2025 Episodic Residual codes; unclassified (1 source) 35 weeks gestation of ; Translations: [35 weeks gestation of ] Onset: 02-21-2025 Episodic Residual codes; unclassified (1 source) 34 weeks gestation of ; Translations: [34 weeks gestation of ] Onset: 02-17-2025 Episodic Residual codes; unclassified (1 source) 33 weeks gestation of ; Translations: [33 weeks gestation of ] Onset: 02-10-2025 Episodic Residual codes; unclassified (1 source) 30 weeks gestation of ; Translations: [30 weeks gestation of ] Onset: 01-17-2025 Episodic Residual codes; unclassified (1 source) Unspecified blood type, Rh negative; Translations: [Unspecified blood type, Rh negative] Onset: 02-28-2025 Episodic Residual codes; unclassified (1 source) 28 weeks gestation of ; Translations: [28 weeks gestation of ] Onset: 02-28-2025 Episodic Residual codes; unclassified (1 source) 25 weeks gestation of ; Translations: [25 weeks gestation of ] Onset: 02-28-2025 Episodic Past or Other Problems Problem Classification Problem Date Documented Da te Episodic/Chronic Abdominal pain (1 source) Right upper quadrant pain; Translations: [Right upper quadrant pain] Onset: 08-26-2024 Episodic Appendicitis and other appendiceal conditions (1 source) Acute appendicitis; Translations: [Unspecified acute appendicitis] Onset: 08-18-2015 Resolved: 09-01-2015 09-01-2015 Episodic Other complications of (1 source) Supervision of high risk , unspecified, unspecified trimester; Translations: [Supervision of high risk , unspecified, unspecified trimester] Onset: 11-19-2024 Episodic Other nutritional; endocrine; and metabolic disorders (1 source) Overweight in childhood; Translations: [Body mass index (BMI) pediatric, 85th percentile to less than 95th percentile for age] Onset: 09-15-2018 09-15-2018 Episodic Other and delivery including normal (1 source) Encounter for supervision of normal , unspecified, unspecified trimester; Translations: [Encounter for supervision of normal , unspecified, unspecified trimester] Onset: 09-02-2024 Episodic Residual codes; unclassified (1 source) 22 weeks gestation of ; Translations: [22 weeks gestation of ] Onset: 11-19-2024 Episodic Residual codes; unclassified (1 source) 16 weeks gestation of ; Translations: [16 weeks gestation of ] Onset: 10-08-2024 Episodic Results Test Name Value Interpretation Reference Range Facil ity OB Limited With Biometricson 03-01-2025 OB Limited With Biometrics [facility] [address] [place], [place] [address] OB Limited With Biometrics MR#: [id number] Acct: [id number] Name: HATTIE PRO Rep #: [id number] : 2000 F 24 From: Charity Welch PCP: Care Physician,No Primary Status: REG CLI Study: OB Limited With Biometrics Date of Exam: 03/01 Exam# [id number] Ordering Dr: Avelina Cui CNM PROCEDURE: OB LIMITED WITH BIOMETRICS 03/01/2025 REASON FOR EXAM: GDM- GROWTH TECHNIQUE: Procedure Code: USOBGROWTH Modality: US Procedure: OB LIMITED WITH BIOMETRICS COMPARISON: none FINDINGS Cephalic position with cardiac activity of 137 bpm. Maximum vertical pocket of 3.6 cm and SEBASTIAN of 15 cm. Placenta is anterior position with grade 2. BPD of 8.8, OFD of the 11.9, HC of 34, AC of 31.5, and FL of 7 cm corresponding with average gestational age of 36 weeks and 5 day with TAY of 03/24/2025. Biometric measurement are within normal limits. Estimated weight of 2746 g (31 percentile). US/OB Limited With Biometrics IMPRESSION: average gestational age of 36 weeks and 5 day with TAY of 03/24/2025. Biometric measurement are within normal limits. Reading Location: [facility] CC: SILVIA Cui; No Primary Care Physician Health Policy Analyst: Signed Normal [facility] Line Controller Office Visit Reporton 02-28-2025 Line Controller Office Visit Report [facility] [address], [address] [place] [address] OFFICE VISIT Date of Service: 02/28/25 MR#: [id number] Acct: [id number] Name: HATTIE PRO Rep #: [id number] : 2000 Provider: Dr. Isatu duff MD Age/Sex: 24/F [place] [facility] [place] Status: Signed Intake Vital Signs 01/17/25 10:13 01/28/25 13:37 02/24/25 14:51 02/28/25 12:59 Height 5 ft 3 in 5 ft 3 in 5 ft 3 in 5 ft 3 in Weight: 204 lb 8 oz 208 lb 1 oz BMI 36.2 36.8 BP 109/69 123/77 H Intake Visit Reasons: 36w 3d ob/nst Barrel Coater Required: No Is patient in pain?: No Allergies No Known Allergies Allergy (Verified 02/28/25 12:57) Medications ???Medication ???Instructions ???Recorded ???Confirmed ???Type multivitamin no.47-iron fum 27 1 cap PO DAILY #90 caps 05/21/22 1 04/30/24 Rx mg-folate no.1 1 mg-dha 300 mg capsule (Virt-PN DHA) calcium carbonate (Calcium Antacid) 400 mg PO ONCE 07/29/24 5 History blood sugar diagnostic (Accu-Chek #100 ea 12/31/24 02/28/25 Rx Guide test strips) blood-glucose meter #1 ea 12/31/24 02/28/25 Rx lancets 28 gauge (CareTouch Safety #100 ea 12/31/24 02/28/25 Rx Lancets) blood sugar diagnostic #100 ea 01/17/25 02/28/25 Rx blood-glucose meter #1 ea 01/17/25 02/28/25 Rx metformin 500 mg tablet 500 mg PO QDAY #30 tabs 01/28/25 1 04/30/24 Rx Last Menstrual Period: 06/07/24 Zika: Zika virus screening: Negative : No PFSH PFSH Medical History Encounter for management of intrauterine contraceptive device (IUD) Abnormal uterine bleeding (AUB) Vaginal delivery Chlamydia infection affecting Rh negative status during Abnormal glucose affecting Environmental allergies Surgical History Hx of appendectomy History of appendectomy Family History Sister Seizures absent sz epilepsy sz Social History adopted: No household members: significant other and children housing: house number of children: 1 current occupational status: unemployed current occupation: [employer] current occupational exposures/hazards: No pets and animals: No history of recent travel: No sexually active: Yes Smoking Status: Former smoker quit date: 11/19/21 Tobacco: How many years used: 6 second hand exposure: No alcohol intake: never substance use type: does not use well-balanced diet: daily or most days caffeine: Yes (1 cup ) Type: coffee what type of physical activity do you participate in: weight training frequency: 3-4 times per week seatbelt use: always do you feel safe at home: No additional social history: , Maicol JL residential irasema History 2 Elective abortions Hx Para Spontaneous abortions Hx # Term Pregnancies 1 Ectopic pregnancies Hx # Pregnancies Multiple births # of living children 1 Past Pregnancies Del. Date Name GA/Weeks Outcome Route Bth Weight Infant Gen Labor Lgth Anesthesia Del Locatn Provider FOB 10/27/22 Arabella Cornejo 40 live - full term 8# Female [facility] Ma rcanthony Delivery Date: 10/27/22 Last Updated by: July Hinkle IOL HPI 36w 3d ob/nst Details: HATTIE PRO is a 24 year old who presents for routine OB visit. OB Visit TAY Calculator Estimated Delivery Date Method Current WG Current Estimate 03/25/25 Ultrasound #1 36w 3d Other Estimates 03/14/25 LMP (Certain) 38w 0d 03/28/25 Ultrasound #2 36w 0d Expected Delivery Route/Plan Labor Preferences- CB/BF classes: [] labor support person: Maicol labor intervention preferences: [] pain management options preferred: limited intervention cut cord/dad catch: yes : yes PP control planned: [] discussed possible routes of delivery and associated risks: [] special requests: [] Specific Issue/Plans Covid status: [] Flu vaccine: declined Tdap vaccine: declined Rhogam: declined bneg LARC form signed: yes movement and labor precautions reviewed. Problem list reviewed and updated with the most current plan of care details and appropriate orders placed. Relevant counseling for the gestational age provided. Continue routine care and follow up unless otherwise noted in visit notes/problem list details Initial Weight: Not Recorded Date -???-???-???-???-??? -???-???-???-???-??? -???-???- EGA Weight BP Urine Prot -???-???-???-???-??? -???-???-???-???-??? -???-???- Glucose FHR FuHt Pres Dilation -???-???-???-???-??? -???-???-???-???-??? -???-???- Effaced St Visit Note 08/13/24 -???- (more content not included)... Normal [facility] Line Controller Office Visit Reporton 02-24-2025 Line Controller Office Visit Report [facility] [address], [address] [place] [address] OFFICE VISIT Date of Service: 02/24/25 MR#: [id number] Acct: [id number] Name: HATTIE PRO Rep #: [id number] : 2000 Provider: SILVIA Hardy ams Age/Sex: 24/F [place] [facility] [place] Status: Signed Intake Vital Signs 01/17/25 10:13 01/28/25 13:37 02/21/25 09:04 02/24/25 14:51 Height 5 ft 3 in 5 ft 3 in 5 ft 3 in 5 ft 3 in Weight: 204 lb 8 oz BMI 36.2 BP 109/69 Intake Visit Reasons: 35 WK 6D NST ONLY Barrel Coater Required: No Is patient in pain?: No Allergies No Known Allergies Allergy (Verified 02/24/25 14:50) Medications ???Medication ???Instructions ???Recorded ???Confirmed ???Type multivitamin no.47-iron fum 27 1 cap PO DAILY #90 caps 05/21/22 1 04/26/24 Rx mg-folate no.1 1 mg-dha 300 mg capsule (Virt-PN DHA) calcium carbonate (Calcium Antacid) 400 mg PO ONCE 07/29/24 5 History blood sugar diagnostic (Accu-Chek #100 ea 12/31/24 02/24/25 Rx Guide test strips) blood-glucose meter #1 ea 12/31/24 02/24/25 Rx lancets 28 gauge (CareTouch Safety #100 ea 12/31/24 02/24/25 Rx Lancets) blood sugar diagnostic #100 ea 01/17/25 02/24/25 Rx blood-glucose meter #1 ea 01/17/25 02/24/25 Rx metformin 500 mg tablet 500 mg PO QDAY #30 tabs 01/28/25 1 04/26/24 Rx Last Menstrual Period: 06/07/24 Zika: Zika virus screening: Negative : No PFSH PFSH Medical History Encounter for management of intrauterine contraceptive device (IUD) Abnormal uterine bleeding (AUB) Vaginal delivery Chlamydia infection affecting Rh negative status during Abnormal glucose affecting Environmental allergies Surgical History Hx of appendectomy History of appendectomy Family History Sister Seizures absent sz epilepsy sz Social History adopted: No household members: significant other and children housing: house number of children: 1 current occupational status: unemployed current occupation: [employer] current occupational exposures/hazards: No pets and animals: No history of recent travel: No sexually active: Yes Smoking Status: Former smoker quit date: 11/19/21 Tobacco: How many years used: 6 second hand exposure: No alcohol intake: never substance use type: does not use well-balanced diet: daily or most days caffeine: Yes (1 cup ) Type: coffee what type of physical activity do you participate in: weight training frequency: 3-4 times per week seatbelt use: always do you feel safe at home: No additional social history: , Maicol JL residential irasema History 2 Elective abortions Hx Para Spontaneous abortions Hx # Term Pregnancies 1 Ectopic pregnancies Hx # Pregnancies Multiple births # of living children 1 Past Pregnancies Del. Date Name GA/Weeks Outcome Route Bth Weight Gen Labor Lgth Anesthesia Del Locatn Provider FOB 10/27/22 Arabella Cornejo 40 live - full term 8# Female [facility] Crys rcanthony Delivery Date: 10/27/22 Last Updated by: July Hinkle IOL HPI 35 WK 6D NST ONLY Details: HATTIE PRO is a 24 year old who presents for routine OB visit. OB Visit TAY Calculator Estimated Delivery Date Method Current WG Current Estimate 03/25/25 Ultrasound #1 35w 6d Other Estimates 03/14/25 LMP (Certain) 37w 3d 03/28/25 Ultrasound #2 35w 3d Expected Delivery Route/Plan Labor Preferences- CB/BF classes: [] labor support person: Maicol labor intervention preferences: [] pain management options preferred: limited intervention cut cord/dad catch: yes : yes PP control planned: [] discussed possible routes of delivery and associated risks: [] special requests: [] Specific Issue/Plans Covid status: [] Flu vaccine: [] Tdap vaccine: [] Rhogam: [] LARC form signed: yes Problem list reviewed and updated with the most current plan of care details and appropriate orders placed. Relevant counseling for the gestational age provided. Continue routine care and follow up unless otherwise noted in visit notes/problem list details Initial Weight: Not Recorded Date -???-???-???-???-??? -???-???-???-???-??? -???-???- EGA Weight BP Urine Prot -???-???-???-???-??? -???-???-???-???-??? -???-???- Glucose FHR FuHt Pres Dilation -???-???-???-???-??? -???-???-???-???-??? -???-???- Effaced St Visit Note 08/13/24 -???-???-???-???-??? -???-???-???-???-??? -???-???- 8w 0d 205 lb 2 oz 113/76 -???-???-???-???-??? (more content not included)... Normal [facility] Line Controller Office Visit Reporton 02-21-2025 Line Controller Office Visit Report [facility] [address], [address] [place] [address] OFFICE VISIT Date of Service: 02/21/25 MR#: [id number] Acct: [id number] Name: HATTIE PRO Rep #: [id number] : 2000 Provider: SILVIA Hardy ams Age/Sex: 24/F [place] [facility] [place] Status: Signed Intake Vital Signs 01/28/25 13:37 02/10/25 14:24 02/17/25 14:24 02/21/25 09:03 02/21/25 09:04 Height 5 ft 3 in 5 ft 3 in 5 ft 3 in 5 ft 3 in 5 ft 3 in Weight: 202 lb 2 oz BMI 35.8 BP 100/63 Intake Visit Reasons: 35W 3D ob/nst Barrel Coater Required: No Is patient in pain?: No Allergies No Known Allergies Allergy (Verified 02/21/25 09:02) Medications ???Medication ???Instructions ???Recorded ???Confirmed ???Type multivitamin no.47-iron fum 27 1 cap PO DAILY #90 caps 05/21/22 1 04/23/24 Rx mg-folate no.1 1 mg-dha 300 mg capsule (Virt-PN DHA) calcium carbonate (Calcium Antacid) 400 mg PO ONCE 07/29/24 5 History blood sugar diagnostic (Accu-Chek #100 ea 12/31/24 02/21/25 Rx Guide test strips) blood-glucose meter #1 ea 12/31/24 02/21/25 Rx lancets 28 gauge (CareTouch Safety #100 ea 12/31/24 02/21/25 Rx Lancets) blood sugar diagnostic #100 ea 01/17/25 02/21/25 Rx blood-glucose meter #1 ea 01/17/25 02/21/25 Rx metformin 500 mg tablet 500 mg PO QDAY #30 tabs 01/28/25 1 04/23/24 Rx Last Menstrual Period: 06/07/24 Zika: Zika virus screening: Negative : No PFSH PFSH Medical History Encounter for management of intrauterine contraceptive device (IUD) Abnormal uterine bleeding (AUB) Vaginal delivery Chlamydia infection affecting Rh negative status during Abnormal glucose affecting Environmental allergies Surgical History Hx of appendectomy History of appendectomy Family History Sister Seizures absent sz epilepsy sz Social History adopted: No household members: significant other and children housing: house number of children: 1 current occupational status: unemployed current occupation: [employer] current occupational exposures/hazards: No pets and animals: No history of recent travel: No sexually active: Yes Smoking Status: Former smoker quit date: 11/19/21 Tobacco: How many years used: 6 second hand exposure: No alcohol intake: never substance use type: does not use well-balanced diet: daily or most days caffeine: Yes (1 cup ) Type: coffee what type of physical activity do you participate in: weight training frequency: 3-4 times per week seatbelt use: always do you feel safe at home: No additional social history: , Maicol JL residential irasema History 2 Elective abortions Hx Para Spontaneous abortions Hx # Term Pregnancies 1 Ectopic pregnancies Hx # Pregnancies Multiple births # of living children 1 Past Pregnancies Del. Date Name GA/Weeks Outcome Route Bth Weight Gen Labor Lgth Anesthesia Del Locatn Provider FOB 10/27/22 Arabella Cornejo 40 live - full term 8# Female [facility] Ma rcanthony Delivery Date: 10/27/22 Last Updated by: July Hinkle IOL HPI 35W 3D ob/nst Details: HATTIE PRO is a 24 year old who presents for routine OB visit. OB Visit TAY Calculator Estimated Delivery Date Method Current WG Current Estimate 03/25/25 Ultrasound #1 35w 3d Other Estimates 03/14/25 LMP (Certain) 37w 0d 03/28/25 Ultrasound #2 35w 0d Expected Delivery Route/Plan Labor Preferences- CB/BF classes: [] labor support person: Maicol labor intervention preferences: [] pain management options preferred: limited intervention cut cord/dad catch: yes : yes PP control planned: [] discussed possible routes of delivery and associated risks: [] special requests: [] Specific Issue/Plans Covid status: [] Flu vaccine: [] Tdap vaccine: [] Rhogam: [] LARC form signed: yes Problem list reviewed and updated with the most current plan of care details and appropriate orders placed. Relevant counseling for the gestational age provided. Continue routine care and follow up unless otherwise noted in visit notes/problem list details Initial Weight: Not Recorded Date -???-???-???-???-??? -???-???-???-???-??? -???-???- EGA Weight BP Urine Prot -???-???-???-???-??? -???-???-???-???-??? -???-???- Glucose FHR FuHt Pres Dilation -???-???-???-???-??? -???-???-???-???-??? -???-???- Effaced St Visit Note 08/13/24 -???-???-???-???-??? -???-???-???-???-??? -???-???- 8w 0d 205 lb 2 oz 113/76 -???- (more content not included)... Normal [facility] Line Controller Office Visit Reporton 02-17-2025 Line Controller Office Visit Report [facility] [address], [facility] [address] [place] [address] OFFICE VISIT Date of Service: 02/17/25 MR#: [id number] Acct: [id number] Name: HATTIE PRO Rep #: [id number] : 2000 Provider: SILVIA Hardy ams Age/Sex: 24/F [place] [facility] [place]: Signed Intake Vital Signs 01/28/25 13:37 02/14/25 12:56 02/17/25 14:24 02/17/25 14:24 Height 5 ft 3 in 5 ft 3 in 5 ft 3 in 5 ft 3 in Weight: 203 lb 5 oz 208 lb 5 oz BMI 36.0 36.8 BP 122/74 H 116/69 Intake Visit Reasons: 34w 6d NST ONLY Barrel Coater Required: No Is patient in pain?: No Allergies No Known Allergies Allergy (Verified 02/17/25 14:24) Medications ???Medication ???Instructions ???Recorded ???Confirmed ???Type multivitamin no.47-iron fum 27 1 cap PO DAILY #90 caps 05/21/22 1 Rx mg-folate no.1 1 mg-dha 300 mg capsule (Virt-PN DHA) calcium carbonate (Calcium Antacid) 400 mg PO ONCE 07/29/24 5 History blood sugar diagnostic (Accu-Chek #100 ea 12/31/24 02/17/25 Rx Guide test strips) blood-glucose meter #1 ea 12/31/24 02/17/25 Rx lancets 28 gauge (Lotus Tissue Repairuch Safety #100 ea 12/31/24 02/17/25 Rx Lancets) blood sugar diagnostic #100 ea 01/17/25 02/17/25 Rx blood-glucose meter #1 ea 01/17/25 02/17/25 Rx metformin 500 mg tablet 500 mg PO QDAY #30 tabs 01/28/25 1 Rx Last Menstrual Period: 06/07/24 Zika: Zika virus screening: Negative : No PFSH PFSH Medical History Encounter for management of intrauterine contraceptive device (IUD) Abnormal uterine bleeding (AUB) Vaginal delivery Chlamydia infection affecting Rh negative status during Abnormal glucose affecting Environmental allergies Surgical History Hx of appendectomy History of appendectomy Family History Sister Seizures absent sz epilepsy sz Social History adopted: No household members: significant other and children housing: house number of children: 1 current occupational status: unemployed current occupation: [employer] current occupational exposures/hazards: No pets and animals: No history of recent travel: No sexually active: Yes Smoking Status: Former smoker quit date: 11/19/21 Tobacco: How many years used: 6 second hand exposure: No alcohol intake: never substance use type: does not use well-balanced diet: daily or most days caffeine: Yes (1 cup ) Type: coffee what type of physical activity do you participate in: weight training frequency: 3-4 times per week seatbelt use: always do you feel safe at home: No additional social history: , Maicol [facility] residential irasema History 2 Elective abortions Hx Para Spontaneous abortions Hx # Term Pregnancies 1 Ectopic pregnancies Hx # Pregnancies Multiple births # of living children 1 Past Pregnancies Del. Date Name GA/Weeks Outcome Route Bth Weight Gen Labor Lgth Anesthesia Del Locatn Provider FOB 10/27/22 Arabella Cornejo 40 live - full term 8# Female [facility] rc[facility]ony Delivery Date: 10/27/22 Last Updated by: July Hinkle IOL HPI 34w 6d NST ONLY Details: HATTIE PRO is a 24 year old who presents for routine OB visit. OB Visit TAY Calculator Estimated Delivery Date Method Current WG Current Estimate 03/25/25 Ultrasound #1 34w 6d Other Estimates 03/14/25 LMP (Certain) 36w 3d 03/28/25 Ultrasound #2 34w 3d Expected Delivery Route/Plan Labor Preferences- CB/BF classes: [] labor support person: Maicol labor intervention preferences: [] pain management options preferred: limited intervention cut cord/dad catch: yes : yes PP control planned: [] discussed possible routes of delivery and associated risks: [] special requests: [] Specific Issue/Plans Covid status: [] Flu vaccine: [] Tdap vaccine: [] Rhogam: [] LARC form signed: yes Problem list reviewed and updated with the most current plan of care details and appropriate orders placed. Relevant counseling for the gestational age provided. Continue routine care and follow up unless otherwise noted in visit notes/problem list details Initial Weight: Not Recorded Date -???-???-???-???-??? -???-???-???-???-??? -???-???- EGA Weight BP Urine Prot -???-???-???-???-??? -???-???-???-???-??? -???-???- Glucose FHR FuHt Pres Dilation -???-???-???-???-??? -???-???-???-???-??? -???-???- Effaced St Visit Note 08/13/24 -???-???-???-???-??? -???-???-???-???-??? -???-???- 8w 0d 205 lb 2 oz 113/76 -? (more content not included)... Normal [facility] Line Controller Office Visit Reporton 02-14-2025 Line Controller Office Visit Report [facility] [address], [address] [place] [address] OFFICE VISIT Date of Service: 02/14/25 MR#: [id number] Acct: [id number] Name: HATTIE PRO Rep #: [id number] 6 : 2000 Provider: SILVIA Hardy ams Age/Sex: 24/F [place] [facility] [place]: Signed Intake Vital Signs 01/28/25 13:37 02/10/25 14:24 02/14/25 12:56 Height 5 ft 3 in 5 ft 3 in 5 ft 3 in Weight: 203 lb 5 oz BMI 36.0 BP 122/74 H Intake Visit Reasons: 34w 3d ob/nst Chief Complaint: 34wk OB/NST Barrel Coater Required: No Is patient in pain?: No Allergies No Known Allergies Allergy (Verified 02/14/25 12:54) Medications ???Medication ???Instructions ???Recorded ???Confirmed ???Type multivitamin no.47-iron fum 27 1 cap PO DAILY #90 caps 05/21/22 1 Rx mg-folate no.1 1 mg-dha 300 mg capsule (Virt-PN DHA) calcium carbonate (Calcium Antacid) 400 mg PO ONCE 07/29/24 5 History blood sugar diagnostic (Accu-Chek #100 ea 12/31/24 02/14/25 Rx Guide test strips) blood-glucose meter #1 ea 12/31/24 02/14/25 Rx lancets 28 gauge (AFINOSTouch Safety #100 ea 12/31/24 02/14/25 Rx Lancets) blood sugar diagnostic #100 ea 01/17/25 02/14/25 Rx blood-glucose meter #1 ea 01/17/25 02/14/25 Rx metformin 500 mg tablet 500 mg PO QDAY #30 tabs 01/28/25 1 Rx Last Menstrual Period: 06/07/24 : No Have you fallen in the past year?: No PFSH PFSH Medical History Encounter for management of intrauterine contraceptive device (IUD) Abnormal uterine bleeding (AUB) Vaginal delivery Chlamydia infection affecting Rh negative status during Abnormal glucose affecting Environmental allergies Surgical History Hx of appendectomy History of appendectomy Family History Sister Seizures absent sz epilepsy sz Social History adopted: No household members: significant other and children housing: house number of children: 1 current occupational status: unemployed current occupation: [employer] current occupational exposures/hazards: No pets and animals: No history of recent travel: No sexually active: Yes Smoking Status: Former smoker quit date: 11/19/21 Tobacco: How many years used: 6 second hand exposure: No alcohol intake: never substance use type: does not use well-balanced diet: daily or most days caffeine: Yes (1 cup ) Type: coffee what type of physical activity do you participate in: weight training frequency: 3-4 times per week seatbelt use: always do you feel safe at home: No additional social history: , Maicol [facility] residential irasema History 2 Elective abortions Hx Para Spontaneous abortions Hx # Term Pregnancies 1 Ectopic pregnancies Hx # Pregnancies Multiple births # of living children 1 Past Pregnancies Del. Date Name GA/Weeks Outcome Route Bth Weight Gen Labor Lgth Anesthesia Del Locatn Provider FOB 10/27/22 Arabella Cornejo 40 live - full term 8# Female [facility] Crys rcanthony Delivery Date: 10/27/22 Last Updated by: July Hinkle IOL HPI 34w 3d ob/nst Details: HATTIE PRO is a 24 year old who presents for routine OB visit. OB Visit TAY Calculator Estimated Delivery Date Method Current WG Current Estimate 03/25/25 Ultrasound #1 34w 3d Other Estimates 03/14/25 LMP (Certain) 36w 0d 03/28/25 Ultrasound #2 34w 0d Expected Delivery Route/Plan Labor Preferences- CB/BF classes: [] labor support person: Maicol labor intervention preferences: [] pain management options preferred: limited intervention cut cord/dad catch: yes : yes PP control planned: [] discussed possible routes of delivery and associated risks: [] special requests: [] Specific Issue/Plans Covid status: [] Flu vaccine: [] Tdap vaccine: [] Rhogam: [] LARC form signed: yes Problem list reviewed and updated with the most current plan of care details and appropriate orders placed. Relevant counseling for the gestational age provided. Continue routine care and follow up unless otherwise noted in visit notes/problem list details Initial Weight: Not Recorded Date -???-???-???-???-??? -???-???-???-???-??? -???-???- EGA Weight BP Urine Prot -???-???-???-???-??? -???-???-???-???-??? -???-???- Glucose FHR FuHt Pres Dilation -???-???-???-???-??? -???-???-???-???-??? -???-???- Effaced St Visit Note 08/13/24 -???-???-???-???-??? -???-???-???-???-??? -???-???- 8w 0d 205 lb 2 oz 113/76 -???-???-???-???-??? -???-???-???-???-??? -???- (more content not included)... Normal [facility] Line Controller Office Visit Reporton 10-23-2025 Line Controller Office Visit Report [facility] [address] [place] [address], [address] [place] [address] OFFICE VISIT Date of Service: 02/10/25 MR#: [id number] Acct: [id number] Name: HATTIE PRO Rep #: [id number] : 2000 Provider: SILVIA Hardy ams Age/Sex: 24/F [place] [facility] [place]: Signed with Addenda ADDENDUM by SILVIA Cui on 02/17/25 at 0805 Office Procedure Documentation entered by Avelina Cui CNM 02/17/25 08:05: Non-stress Test Non-Stress Test Indications for Monitoring: Yes diabetes Heart Rate Baseline: 140 Heart Rate Variability: moderate Movement: Present Heart Rate Accelerations: Present Decelerations: Absent Contractions: Absent Impression: Yes Reactive Non-Stress Test 02/17/25 0805 Date Avelina Cui CNM cc: * Signed Intake Vital Signs 01/28/25 13:37 01/31/25 11:16 02/07/25 10:20 02/10/25 14:23 02/10/25 14:24 Height 5 ft 3 in 5 ft 3 in 5 ft 3 in 5 ft 3 in 5 ft 3 in Weight: 203 lb 9 oz BMI 36.0 BP 117/72 Intake Visit Reasons: 33w 6d NST ONLY Barrel Coater Required: No Is patient in pain?: No Allergies No Known Allergies Allergy (Verified 02/10/25 14:23) Medications ???Medication ???Instructions ???Recorded ???Confirmed ???Type multivitamin no.47-iron fum 27 1 cap PO DAILY #90 caps 05/21/22 1 Rx mg-folate no.1 1 mg-dha 300 mg capsule (Virt-PN DHA) calcium carbonate (Calcium Antacid) 400 mg PO ONCE 07/29/24 5 History blood sugar diagnostic (Accu-Chek #100 ea 12/31/24 02/10/25 Rx Guide test strips) blood-glucose meter #1 ea 12/31/24 02/10/25 Rx lancets 28 gauge (CareTouch Safety #100 ea 12/31/24 02/10/25 Rx Lancets) blood sugar diagnostic #100 ea 01/17/25 02/10/25 Rx blood-glucose meter #1 ea 01/17/25 02/10/25 Rx metformin 500 mg tablet 500 mg PO QDAY #30 tabs 01/28/25 1 Rx Last Menstrual Period: 06/07/24 Zika: Zika virus screening: Negative : No Have you fallen in the past year?: No PFSH PFSH Medical History Encounter for management of intrauterine contraceptive device (IUD) Abnormal uterine bleeding (AUB) Vaginal delivery Chlamydia infection affecting Rh negative status during Abnormal glucose affecting Environmental allergies Surgical History Hx of appendectomy History of appendectomy Family History Sister Seizures absent sz epilepsy sz Social History adopted: No household members: significant other and children housing: house number of children: 1 current occupational status: unemployed current occupation: [employer] current occupational exposures/hazards: No pets and animals: No history of recent travel: No sexually active: Yes Smoking Status: Former smoker quit date: 11/19/21 Tobacco: How many years used: 6 second hand exposure: No alcohol intake: never substance use type: does not use well-balanced diet: daily or most days caffeine: Yes (1 cup ) Type: coffee what type of physical activity do you participate in: weight training frequency: 3-4 times per week seatbelt use: always do you feel safe at home: No additional social history: , Maicol [facility] residential irasema History 2 Elective abortions Hx Para Spontaneous abortions Hx # Term Pregnancies 1 Ectopic pregnancies Hx # Pregnancies Multiple births # of living children 1 Past Pregnancies Del. Date Name GA/Weeks Outcome Route Bth Weight Gen Labor Lgth Anesthesia Del Locatn Provider FOB 10/27/22 Arabella Cornejo 40 live - full term 8# Female [facility] Crys rcanthony Delivery Date: 10/27/22 Last Updated by: July Hinkle IOL HPI 33w 6d NST ONLY Details: HATTIE PRO is a 24 year old who presents for routine OB visit. OB Visit TAY Calculator Estimated Delivery Date Method Current WG Current Estimate 03/25/25 Ultrasound #1 33w 6d Other Estimates 03/14/25 LMP (Certain) 35w 3d 03/28/25 Ultrasound #2 33w 3d Expected Delivery Route/Plan Labor Preferences- CB/BF classes: [] labor support person: Maicol labor intervention preferences: [] pain management options preferred: limited intervention cut cord/dad catch: yes : yes PP control planned: [] discussed possible routes of delivery and associated risks: [] special requests: [] Specific Issue/Plans Covid status: [] Flu vaccine: [] Tdap vaccine: [] Rhogam: [] LARC form signed: yes Problem list reviewed and updated with the most (more content not included)... Normal [facility] CBC W/Diff, Automatedon 10-2 0-2024 Absolute Lymph 2.00 X10 3/uL Normal 0.83-4.51 [facility] Comment on above: Performed By: #### L 3890.6006, L509.8002, L100.0100 ####[facility] [address] [place], [address] Absolute Neut 6.0 X10 3/uL Normal 2.0-7.7 [facility] Comment on above: Performed By: #### L 3890.6006, L509.8002, L100.0100 ####[facility] [address] [place], [address] Basophils/100 WBC (Bld) 0.4 % Normal 0-1 [facility] Comment on above: Performed By: #### L 3890.6006, L509.8002, L100.0100 ####[facility] [address] [place], [address] Eosinophils/100 WBC (Bld) 0.8 % Normal 0-5 [facility] Comment on above: Performed By: #### L 3890.6006, L509.8002, L100.0100 ####[facility] [address] [place], [address] Erythrocyte distribution width (RBC) [Ratio] 12.8 % Normal 11.6-14.6 [facility] Comment on above: Performed By: #### L 3890.6006, L509.8002, L100.0100 ####[facility] [address] [place], [address] Hematocrit (Bld) [Volume fraction] 32.6 % Low 37-47 [facility] Comment on above: Performed By: #### L 3890.6006, L509.8002, L100.0100 ####[facility] [address] [place], [address] Hemoglobin (Bld) [Mass/Vol] 10.7 g/dL Low 12.0-15.0 [facility] Comment on above: Performed By: #### L 3890.6006, L509.8002, L100.0100 ####[facility] [address] [place], [address] IG% 0.600 Normal 0.0-0.9 [facility] Comment on above: Result Comment: IG% - Immature Granulocytes (promyelocytes, myelocytes and metamyelocytes) > 1% indicates that a LEFT SHIFT is Present. Performed By: #### L 3890.6006, L509.8002, L100.0100 ####[facility] [address] [place], [address] Lymphocytes/100 WBC (Bld) 22.5 % Normal 19-41 [facility] Comment on above: Performed By: #### L 3890.6006, L509.8002, L100.0100 ####[facility] [address] [place], [address] MCH (RBC) [Entitic mass] 27.9 pg Normal 27.0-32.0 [facility] Comment on above: Performed By: #### L 3890.6006, L509.8002, L100.0100 ####[facility] [address] [place], [address] MCHC (RBC) [Mass/Vol] 32.8 g/dL Normal 32-36 [facility] Comment on above: Performed By: #### L 3890.6006, L509.8002, L100.0100 ####[facility] [address] [place], [address] MCV (RBC) [Entitic vol] 84.9 fL Normal 81-99 [facility] Comment on above: Performed By: #### L 3890.6006, L509.8002, L100.0100 ####[facility] [address] [place], [address] Monocytes/100 WBC (Bld) 7.8 % Normal 0-10 [facility] Comment on above: Performed By: #### L 3890.6006, L509.8002, L100.0100 ####[facility] [address] [place], [address] Neutrophils/100 WBC (Bld) 67.9 % Normal 47-70 [facility] Comment on above: Performed By: #### L 3890.6006, L509.8002, L100.0100 ####[facility] [address] [place], [address] Nucleated RBC (Bld) [#/Vol] 0 10*3/uL Normal 0-5 [facility] Comment on above: Performed By: #### L 3890.6006, L509.8002, L100.0100 ####[facility] [address] [place], [address] Platelet mean volume (Bld) [Entitic vol] 9.6 fL Normal 6.2-12.0 [facility] Comment on above: Performed By: #### L 3890.6006, L509.8002, L100.0100 ####[facility] [address] [place], [address] Platelets (Bld) [#/Vol] 253 10*3/uL Normal 150-450 [facility] Comment on above: Performed By: #### L 3890.6006, L509.8002, L100.0100 ####[facility] [address] [place], [address] RBC (Bld) [#/Vol] 3.84 10*6/uL Low 4.2-5.4 [facility] Comment on above: Performed By: #### L 3890.6006, L509.8002, L100.0100 ####[facility] [address] [place], [address] RDW SD 39.4 fl Normal 35.1-43.9 [facility] Comment on above: Performed By: #### L 3890.6006, L509.8002, L100.0100 ####[facility] [address] [place], [address] WBC (Bld) [#/Vol] 8.9 10*3/uL Normal 4.4-11.0 [facility] Comment on above: Performed By: #### L 3890.6006, L509.8002, L100.0100 ####[facility] [address] [place], [address] HIVon 02-07-2025 HIV Non-Reactive Normal Nonreactive [facility] Comment on above: Result Comment: Non- Reactive Reactive Repeatedly reactive samples must be confirmed according to CDC recommended confirmatory algorithms. The subresults for either HIVAG or AHIV can be used as an aid in the selection of the confirmation algorithm for reactive samples. Send out specimens with Reactive results to [facility] for confirmation. Order the HIV antibody detection and differentiation: [id number] Performed By: #### L 3890.6006, L509.8002, L100.0100 ####[facility] [address] [place], [address] Line Controller Office Visit Reporton 02-07-2025 Line Controller Office Visit Report [facility] [address], [address] [place] [address] OFFICE VISIT Date of Service: 02/07/25 MR#: [id number] Acct: [id number] Name: HATTIE PRO Rep #: [id number] : 2000 Provider: SILVIA Hardy ams Age/Sex: 24/F [place] [facility] [place] Status: Signed Intake Vital Signs 01/17/25 10:13 01/28/25 13:37 02/03/25 12:59 02/07/25 10:20 Height 5 ft 3 in 5 ft 3 in 5 ft 3 in 5 ft 3 in Weight: 203 lb 2 oz BMI 35.9 BP 112/71 Intake Visit Reasons: 33 WK 3 ob/nst Chief Complaint: 33wk OB Barrel Coater Required: No Is patient in pain?: No Allergies No Known Allergies Allergy (Verified 02/07/25 10:19) Medications ???Medication ???Instructions ???Recorded ???Confirmed ???Type multivitamin no.47-iron fum 27 1 cap PO DAILY #90 caps 05/21/22 1 Rx mg-folate no.1 1 mg-dha 300 mg capsule (Virt-PN DHA) calcium carbonate (Calcium Antacid) 400 mg PO ONCE 07/29/24 5 History blood sugar diagnostic (Accu-Chek #100 ea 12/31/24 02/07/25 Rx Guide test strips) blood-glucose meter #1 ea 12/31/24 02/07/25 Rx lancets 28 gauge (CareTouch Safety #100 ea 12/31/24 02/07/25 Rx Lancets) blood sugar diagnostic #100 ea 01/17/25 02/07/25 Rx blood-glucose meter #1 ea 01/17/25 02/07/25 Rx metformin 500 mg tablet 500 mg PO QDAY #30 tabs 01/28/25 1 Rx Last Menstrual Period: 06/07/24 : No Have you fallen in the past year?: No PFSH PFSH Medical History Encounter for management of intrauterine contraceptive device (IUD) Abnormal uterine bleeding (AUB) Vaginal delivery Chlamydia infection affecting Rh negative status during Abnormal glucose affecting Environmental allergies Surgical History Hx of appendectomy History of appendectomy Family History Sister Seizures absent sz epilepsy sz Social History adopted: No household members: significant other and children housing: house number of children: 1 current occupational status: unemployed current occupation: [employer] current occupational exposures/hazards: No pets and animals: No history of recent travel: No sexually active: Yes Smoking Status: Former smoker quit date: 11/19/21 Tobacco: How many years used: 6 second hand exposure: No alcohol intake: never substance use type: does not use well-balanced diet: daily or most days caffeine: Yes (1 cup ) Type: coffee what type of physical activity do you participate in: weight training frequency: 3-4 times per week seatbelt use: always do you feel safe at home: No additional social history: , Maicol [facility] residential irasema History 2 Elective abortions Hx Para Spontaneous abortions Hx # Term Pregnancies 1 Ectopic pregnancies Hx # Pregnancies Multiple births # of living children 1 Past Pregnancies Del. Date Name GA/Weeks Outcome Route Bth Weight Gen Labor Lgth Anesthesia Del Locatn Provider FOB 10/27/22 Arabella Cornejo 40 live - full term 8# Female [facility] rc[facility]ony Delivery Date: 10/27/22 Last Updated by: July Hinkle IOL HPI 33 WK 3 ob/nst Details: HATTIE PRO is a 24 year old who presents for routine OB visit. OB Visit TAY Calculator Estimated Delivery Date Method Current WG Current Estimate 03/25/25 Ultrasound #1 33w 3d Other Estimates 03/14/25 LMP (Certain) 35w 0d 03/28/25 Ultrasound #2 33w 0d Expected Delivery Route/Plan Labor Preferences- CB/BF classes: [] labor support person: Maicol labor intervention preferences: [] pain management options preferred: limited intervention cut cord/dad catch: yes : yes PP control planned: [] discussed possible routes of delivery and associated risks: [] special requests: [] Specific Issue/Plans Covid status: [] Flu vaccine: [] Tdap vaccine: [] Rhogam: [] LARC form signed: yes Problem list reviewed and updated with the most current plan of care details and appropriate orders placed. Relevant counseling for the gestational age provided. Continue routine care and follow up unless otherwise noted in visit notes/problem list details Initial Weight: Not Recorded Date -???-???-???-???-??? -???-???-???-???-??? -???-???- EGA Weight BP Urine Prot -???-???-???-???-??? -???-???-???-???-??? -???-???- Glucose FHR FuHt Pres Dilation -???-???-???-???-??? -???-???-???-???-??? -???-???- Effaced St Visit Note 08/13/24 -???-???-???-???-??? -???-???-???-???-??? -???-???- 8w 0d 205 lb 2 oz 113/76 -???-???-???-???-??? -? (more content not included)... Normal [facility] Syphilis Antibodieson 2024 Syphilis Abs Non-Reactive Normal Nonreactive [facility] Comment on above: Performed By: #### L 3890.6006, L509.8002, L100.0100 ####[facility] [address] [place], [place], [address] Line Controller Office Visit Reporton 02-03-2025 Line Controller Office Visit Report [facility] [address], [address] [place] [address] OFFICE VISIT Date of Service: 02/03/25 MR#: [id number] Acct: [id number] Name: HATTIE PRO Rep #: [id number] : 2000 Provider: SILVIA Hardy ams Age/Sex: 24/F [place] [facility] [place]: Signed Intake Vital Signs 01/28/25 13:37 01/31/25 11:16 02/03/25 12:59 Height 5 ft 3 in 5 ft 3 in 5 ft 3 in Weight: 201 lb 8 oz BMI 35.6 BP 102/78 Intake Visit Reasons: 32w 6d NST ONLY Barrel Coater Required: No Is patient in pain?: No Allergies No Known Allergies Allergy (Verified 02/03/25 13:04) Medications ???Medication ???Instructions ???Recorded ???Confirmed ???Type multivitamin no.47-iron fum 27 1 cap PO DAILY #90 caps 05/21/22 1 Rx mg-folate no.1 1 mg-dha 300 mg capsule (Virt-PN DHA) calcium carbonate (Calcium Antacid) 400 mg PO ONCE 07/29/24 5 History blood sugar diagnostic (Accu-Chek #100 ea 12/31/24 02/03/25 Rx Guide test strips) blood-glucose meter #1 ea 12/31/24 02/03/25 Rx lancets 28 gauge (CareTouch Safety #100 ea 12/31/24 02/03/25 Rx Lancets) blood sugar diagnostic #100 ea 01/17/25 02/03/25 Rx blood-glucose meter #1 ea 01/17/25 02/03/25 Rx metformin 500 mg tablet 500 mg PO QDAY #30 tabs 01/28/25 1 Rx Last Menstrual Period: 06/07/24 Zika: Zika virus screening: Negative : No PFSH PFSH Medical History Encounter for management of intrauterine contraceptive device (IUD) Abnormal uterine bleeding (AUB) Vaginal delivery Chlamydia infection affecting Rh negative status during Abnormal glucose affecting Environmental allergies Surgical History Hx of appendectomy History of appendectomy Family History Sister Seizures absent sz epilepsy sz Social History adopted: No household members: significant other and children housing: house number of children: 1 current occupational status: unemployed current occupation: [employer] current occupational exposures/hazards: No pets and animals: No history of recent travel: No sexually active: Yes Smoking Status: Former smoker quit date: 11/19/21 Tobacco: How many years used: 6 second hand exposure: No alcohol intake: never substance use type: does not use well-balanced diet: daily or most days caffeine: Yes (1 cup ) Type: coffee what type of physical activity do you participate in: weight training frequency: 3-4 times per week seatbelt use: always do you feel safe at home: No additional social history: , Maicol J[facility] residential irasema History 2 Elective abortions Hx Para Spontaneous abortions Hx # Term Pregnancies 1 Ectopic pregnancies Hx # Pregnancies Multiple births # of living children 1 Past Pregnancies Del. Date Name GA/Weeks Outcome Route Bth Weight Infant Gen Labor Lgth Anesthesia Del Locatn Provider FOB 10/27/22 Arabella Cornejo 40 live - full term 8# Female [facility] rc[facility]ony Delivery Date: 10/27/22 Last Updated by: July Hinkle IOL HPI 32w 6d NST ONLY Details: HATTIE PRO is a 24 year old who presents for routine OB visit. OB Visit TAY Calculator Estimated Delivery Date Method Current WG Current Estimate 03/25/25 Ultrasound #1 32w 6d Other Estimates 03/14/25 LMP (Certain) 34w 3d 03/28/25 Ultrasound #2 32w 3d Expected Delivery Route/Plan Labor Preferences- CB/BF classes: [] labor support person: Maicol labor intervention preferences: [] pain management options preferred: limited intervention cut cord/dad catch: yes : yes PP control planned: [] discussed possible routes of delivery and associated risks: [] special requests: [] Specific Issue/Plans Covid status: [] Flu vaccine: [] Tdap vaccine: [] Rhogam: [] LARC form signed: yes Problem list reviewed and updated with the most current plan of care details and appropriate orders placed. Relevant counseling for the gestational age provided. Continue routine care and follow up unless otherwise noted in visit notes/problem list details Initial Weight: Not Recorded Date -???-???-???-???-??? -???-???-???-???-??? -???-???- EGA Weight BP Urine Prot -???-???-???-???-??? -???-???-???-???-??? -???-???- Glucose FHR FuHt Pres Dilation -???-???-???-???-??? -???-???-???-???-??? -???-???- Effaced St Visit Note 08/13/24 -???-???-???-???-??? -???-???-???-???-??? -???-???- 8w 0d 205 lb 2 oz 113/76 -???-???-???-???-??? -???-???-???-???-??? -???-???- (more content not included)... Normal [facility] CBC W/Diff, Automatedon 10-1 Absolute Neut Normal 2.0-7.7 [facility] Comment on above: Result Comment: TO B E DONE A DIFFERENT DAY Performed By: #### L 100.0100, BTS ####[facility] [address] [place], [address] HCT Normal 37-47 [facility] Comment on above: Result Comment: TO B E DONE A DIFFERENT DAY Performed By: #### L 100.0100, BTS ####[facility] [address] [place], [address] HGB Normal 12.0-15.0 [facility] Comment on above: Result Comment: TO B E DONE A DIFFERENT DAY Performed By: #### L 100.0100, BTS ####[facility] [address] [place], [address] MCH Normal 27.0-32.0 [facility] Comment on above: Result Comment: TO B E DONE A DIFFERENT DAY Performed By: #### L 100.0100, BTS ####[facility] [address] [place], [address] MCHC Normal 32-36 [facility] Comment on above: Result Comment: TO B E DONE A DIFFERENT DAY Performed By: #### L 100.0100, BTS ####[facility] [address] [place], [address] MCV Normal 81-99 [facility] Comment on above: Result Comment: TO B E DONE A DIFFERENT DAY Performed By: #### L 100.0100, BTS ####[facility] [address] [place], [address] NEUT% Normal 47-70 [facility] Comment on above: Result Comment: TO B E DONE A DIFFERENT DAY Performed By: #### L 100.0100, BTS ####[facility] [address] [place], [address] PLT Normal 150-450 [facility] Comment on above: Result Comment: TO B E DONE A DIFFERENT DAY Performed By: #### L 100.0100, BTS ####[facility] [address] [place], [address] RBC Normal 4.2-5.4 [facility] Comment on above: Result Comment: TO B E DONE A DIFFERENT DAY Performed By: #### L 100.0100, BTS ####[facility] [address] [place], [address] RDW CV Normal 11.6-14.6 [facility] Comment on above: Result Comment: TO B E DONE A DIFFERENT DAY Performed By: #### L 100.0100, BTS ####[facility] [address] [place], [address] RDW SD Normal 35.1-43.9 [facility] Comment on above: Result Comment: TO B E DONE A DIFFERENT DAY Performed By: #### L 100.0100, BTS ####[facility] [address] [place], [address] WBC Normal 4.4-11.0 [facility] Comment on above: Result Comment: TO B E DONE A DIFFERENT DAY Performed By: #### L 100.0100, BTS ####[facility] [address] [place], [address] OB Limited With Biometricson 01-31-2025 OB Limited With Biometrics [facility] [address] [place] [address] OB Limited With Biometrics MR#: [id number] Acct: [id number] Name: HATTIE PRO Rep #: [id number] : 2000 F 24 From: Justen charles MD PCP: Care Physician,No Primary Status: REG CLI Study: OB Limited With Biometrics Date of Exam: 01/31 Exam# [id number] Ordering Dr: Josey Munson DO PROCEDURE: OB LIMITED WITH BIOMETRICS 01/31/2025 REASON FOR EXAM: UNABLE TO DO GLUCOLA TEST TECHNIQUE: Procedure Code: [id number] Modality: US Procedure: OB LIMITED WITH BIOMETRICS COMPARISON: None FINDINGS Number: 1 Position: Vertex Placental Position: Anterior and not low-lying Placental Abnormalities: No evidence of previa. DIMENSIONS: Biparietal Diameter: 8 cm: 32 weeks and 2 days: 38 percentile/ Head Circumference: 30.7 cm: 34 weeks and 2 days: 62nd percentile/ Abdominal Circumference: 29.9 cm: 33 weeks and 5 days: 84 percentile/ Femur Length: 6 cm: 31 weeks and 3 days: 15 percentile/ ESTIMATED WEIGHT: 2081 g plus/-312 g ESTIMATED WEIGHT PERCENTILE (24+ weeks): 55.6 ESTIMATED GESTATIONAL AGE: Baseline: 32 weeks and 3 days By Ultrasound: 33 weeks and 4 days ESTIMATED DATE OF DELIVERY: Baseline: March 25, 2025 By Ultrasound: March 17, 2025 BIOPHYSICAL ASSESSMENT: Amniotic Fluid Volume: 5.4 cm Amniotic Fluid Index: 14.2 (8-24 cm normal range) Cardiac Motion: 133 beats per minute (average) Trunk and Limb Motion: Present. MATERNAL ANATOMY: Adnexa: Neither maternal ovary is successfully identified. US/OB Limited With Biometrics IMPRESSION: Single live intrauterine gestation with a mean gestational age of 33 weeks and 4 days. Reading Location: [place] [address] CC: Dr. Josey Munson, DO; No Primary Care Physician Health Policy Analyst: Signed Normal [facility] Line Controller Office Visit Reporton 01-31-2025 Line Controller Office Visit Report [facility] [address], [address] [place] [address] OFFICE VISIT Date of Service: 01/31/25 MR#: [id number] Acct: [id number] Name: HATTIE PRO Rep #: [id number] : 2000 Provider: Dr. Isatu duff MD Age/Sex: 24/F [place] [facility] [place]: Signed Intake Vital Signs 01/28/25 13:37 01/31/25 11:16 01/31/25 11:16 Height 5 ft 3 in 5 ft 3 in 5 ft 3 in Weight: 202 lb 5 oz 201 lb BMI 35.8 35.6 BP 114/78 117/77 Intake Visit Reasons: 32w 3d ob/nst Barrel Coater Required: No Is patient in pain?: No Allergies No Known Allergies Allergy (Verified 01/31/25 11:15) Medications ???Medication ???Instructions ???Recorded ???Confirmed ???Type multivitamin no.47-iron fum 27 1 cap PO DAILY #90 caps 05/21/22 1 Rx mg-folate no.1 1 mg-dha 300 mg capsule (Virt-PN DHA) calcium carbonate (Calcium Antacid) 400 mg PO ONCE 07/29/24 5 History blood sugar diagnostic (Accu-Chek #100 ea 12/31/24 01/31/25 Rx Guide test strips) blood-glucose meter #1 ea 12/31/24 01/31/25 Rx lancets 28 gauge (CareTouch Safety #100 ea 12/31/24 01/31/25 Rx Lancets) blood sugar diagnostic #100 ea 01/17/25 01/31/25 Rx blood-glucose meter #1 ea 01/17/25 01/31/25 Rx metformin 500 mg tablet 500 mg PO QDAY #30 tabs 01/28/25 1 Rx Last Menstrual Period: 06/07/24 Zika: Zika virus screening: Negative : No PFSH PFSH Medical History Encounter for management of intrauterine contraceptive device (IUD) Abnormal uterine bleeding (AUB) Vaginal delivery Chlamydia infection affecting Rh negative status during Abnormal glucose affecting Environmental allergies Surgical History Hx of appendectomy History of appendectomy Family History Sister Seizures absent sz epilepsy sz Social History adopted: No household members: significant other and children housing: house number of children: 1 current occupational status: unemployed current occupation: [employer] current occupational exposures/hazards: No pets and animals: No history of recent travel: No sexually active: Yes Smoking Status: Former smoker quit date: 11/19/21 Tobacco: How many years used: 6 second hand exposure: No alcohol intake: never substance use type: does not use well-balanced diet: daily or most days caffeine: Yes (1 cup ) Type: coffee what type of physical activity do you participate in: weight training frequency: 3-4 times per week seatbelt use: always do you feel safe at home: No additional social history: , Maicol J[facility] residential irasema History 2 Elective abortions Hx Para Spontaneous abortions Hx # Term Pregnancies 1 Ectopic pregnancies Hx # Pregnancies Multiple births # of living children 1 Past Pregnancies Del. Date Name GA/Weeks Outcome Route Bth Weight Gen Labor Lgth Anesthesia Del Locatn Provider FOB 10/27/22 Arabella Cornejo 40 live - full term 8# Female [facility] rcanthony Delivery Date: 10/27/22 Last Updated by: July Hinkle IOL HPI 32w 3d ob/nst Details: HATTIE PRO is a 24 year old who presents for routine OB visit. OB Visit TAY Calculator Estimated Delivery Date Method Current WG Current Estimate 03/25/25 Ultrasound #1 32w 4d Other Estimates 03/14/25 LMP (Certain) 34w 1d 03/28/25 Ultrasound #2 32w 1d Expected Delivery Route/Plan Labor Preferences- CB/BF classes: [] labor support person: Maicol labor intervention preferences: [] pain management options preferred: limited intervention cut cord/dad catch: yes : yes PP control planned: [] discussed possible routes of delivery and associated risks: [] special requests: [] Specific Issue/Plans Covid status: [] Flu vaccine: [] Tdap vaccine: [] Rhogam: [] LARC form signed: yes Problem list reviewed and updated with the most current plan of care details and appropriate orders placed. Relevant counseling for the gestational age provided. Continue routine care and follow up unless otherwise noted in visit notes/problem list details Initial Weight: Not Recorded Date -???-???-???-???-??? -???-???-???-???-??? -???-???- EGA Weight BP Urine Prot -???-???-???-???-??? -???-???-???-???-??? -???-???- Glucose FHR FuHt Pres Dilation -???-???-???-???-??? -???-???-???-???-??? -???-???- Effaced St Visit Note 04/25/25 -???-???-???-???-??? -???-???-???-???-??? -???-???- 8w 0d 205 lb 2 oz 113/76 -???-???-???-???-??? -???-???-???-???-??? (more content not included)... Normal [facility] Type AND Screenon 01-31-2025 A1 CELL Not performed Normal [facility] Comment on above: Order Comment: PN Result Comment: TO B E DONE A DIFFERENT DAY Performed By: #### L 100.0100, BTS ####[facility] [address] [place], [address] Ab SCREEN GEL Not performed Normal [facility] Comment on above: Order Comment: PN Result Comment: TO B E DONE A DIFFERENT DAY Performed By: #### L 100.0100, BTS ####[facility] [address] [place], [address] ABO and Rh group Nom (Bld) Test Not Performed Normal [facility] Comment on above: Order Comment: PN Result Comment: TO B E DONE A DIFFERENT DAY Performed By: #### L 100.0100, BTS ####[facility] [address] [place], [address] ANTI A Not performed Normal [facility] Comment on above: Order Comment: PN Result Comment: TO B E DONE A DIFFERENT DAY Performed By: #### L 100.0100, BTS ####[facility] [address] [place], [address] ANTI B Not performed Normal [facility] Comment on above: Order Comment: PN Result Comment: TO B E DONE A DIFFERENT DAY Performed By: #### L 100.0100, BTS ####[facility] [address] [place], [address] ANTI D Not performed Normal [facility] Comment on above: Order Comment: PN Result Comment: TO B E DONE A DIFFERENT DAY Performed By: #### L 100.0100, BTS ####[facility] [address] [place], [place], [address] B CELLS Not performed Normal [facility] Comment on above: Order Comment: PN Result Comment: TO B E DONE A DIFFERENT DAY Performed By: #### L 100.0100, BTS ####[facility] [address] [place], [place], [address] Line Controller Office Visit Reporton 01-28-2025 Line Controller Office Visit Report [facility], [address] [place] [address] OFFICE VISIT Date of Service: 01/28/25 MR#: [id number] Acct: [id number] Name: HATTIE PRO Rep #: [id number] : 2000 Provider: SILVIA Hardy ams Age/Sex: 24/F [place] [facility] [place]: Signed Intake Vital Signs 12/16/24 09:58 01/17/25 10:13 01/28/25 13:37 Height 5 ft 3 in 5 ft 3 in 5 ft 3 in Weight: 202 lb 5 oz BMI 35.8 BP 114/78 Intake Visit Reasons: 32wk ob Chief Complaint: 32wk OB Barrel Coater Required: No Is patient in pain?: No Allergies No Known Allergies Allergy (Verified 01/31/25 11:15) Medications ???Medication ???Instructions ???Recorded ???Confirmed ???Type multivitamin no.47-iron fum 27 1 cap PO DAILY #90 caps 05/21/22 1 Rx mg-folate no.1 1 mg-dha 300 mg capsule (Virt-PN DHA) calcium carbonate (Calcium Antacid) 400 mg PO ONCE 07/29/24 5 History blood sugar diagnostic (Accu-Chek #100 ea 12/31/24 01/31/25 Rx Guide test strips) blood-glucose meter #1 ea 12/31/24 01/31/25 Rx lancets 28 gauge (CareTouch Safety #100 ea 12/31/24 01/31/25 Rx Lancets) blood sugar diagnostic #100 ea 01/17/25 01/31/25 Rx blood-glucose meter #1 ea 01/17/25 01/31/25 Rx metformin 500 mg tablet 500 mg PO QDAY #30 tabs 01/28/25 1 Rx Last Menstrual Period: 06/07/24 : No Have you fallen in the past year?: No PFSH PFSH Medical History Encounter for management of intrauterine contraceptive device (IUD) Abnormal uterine bleeding (AUB) Vaginal delivery Chlamydia infection affecting Rh negative status during Abnormal glucose affecting Environmental allergies Surgical History Hx of appendectomy History of appendectomy Family History Sister Seizures absent sz epilepsy sz Social History adopted: No household members: significant other and children housing: house number of children: 1 current occupational status: unemployed current occupation: [employer] current occupational exposures/hazards: No pets and animals: No history of recent travel: No sexually active: Yes Smoking Status: Former smoker quit date: 11/19/21 Tobacco: How many years used: 6 second hand exposure: No alcohol intake: never substance use type: does not use well-balanced diet: daily or most days caffeine: Yes (1 cup ) Type: coffee what type of physical activity do you participate in: weight training frequency: 3-4 times per week seatbelt use: always do you feel safe at home: No additional social history: , Maicol [facility] residential irasema History 2 Elective abortions Hx Para Spontaneous abortions Hx # Term Pregnancies 1 Ectopic pregnancies Hx # Pregnancies Multiple births # of living children 1 Past Pregnancies Del. Date Name GA/Weeks Outcome Route Bth Weight Infant Gen Labor Lgth Anesthesia Del Locatn Provider FOB 10/27/22 Arabella Cornejo 40 live - full term 8# Female [facility] rcanthony Delivery Date: 10/27/22 Last Updated by: July Hinkle IOL HPI 32wk ob Details: HATTIE PRO is a 24 year old who presents for routine OB visit. OB Visit TAY Calculator Estimated Delivery Date Method Current WG Current Estimate 03/25/25 Ultrasound #1 32w 3d Other Estimates 03/14/25 LMP (Certain) 34w 0d 03/28/25 Ultrasound #2 32w 0d Expected Delivery Route/Plan Labor Preferences- CB/BF classes: [] labor support person: Maicol labor intervention preferences: [] pain management options preferred: limited intervention cut cord/dad catch: yes : yes PP control planned: [] discussed possible routes of delivery and associated risks: [] special requests: [] Specific Issue/Plans Covid status: [] Flu vaccine: [] Tdap vaccine: [] Rhogam: [] LARC form signed: yes Problem list reviewed and updated with the most current plan of care details and appropriate orders placed. Relevant counseling for the gestational age provided. Continue routine care and follow up unless otherwise noted in visit notes/problem list details Initial Weight: Not Recorded Date -???-???-???-???-??? -???-???-???-???-??? -???-???- EGA Weight BP Urine Prot -???-???-???-???-??? -???-???-???-???-??? -???-???- Glucose FHR FuHt Pres Dilation -???-???-???-???-??? -???-???-???-???-??? -???-???- Effaced St Visit Note 08/13/24 -???-???-???-???-??? -???-???-???-???-??? -???-???- 8w 0d 205 lb 2 oz 113/76 -???-???-???-???-??? -???-???-???-???-??? -???-???- (more content not included)... Normal [facility] Line Controller Office Visit Reporton 01-17-2025 Line Controller Office Visit Report [facility] [address], [address] [place] [address] OFFICE VISIT Date of Service: 01/17/25 MR#: [id number] Acct: [id number] Name: HATTIE PRO Rep #: [id number] : 2000 Provider: Dr. Josey Cook, Age/Sex: 24/F [place] [facility] [place]: Signed Intake Vital Signs 11/19/24 09:19 12/16/24 09:58 01/17/25 10:13 Height 5 ft 3 in 5 ft 3 in 5 ft 3 in Weight: 198 lb 2 oz BMI 35.1 BP 104/67 Intake Visit Reasons: 30wk3d ob *lynda from 01/12 Chief Complaint: 30wk OB Barrel Coater Required: No Is patient in pain?: No Allergies No Known Allergies Allergy (Verified 01/17/25 10:11) Medications ???Medication ???Instructions ???Recorded ???Confirmed ???Type multivitamin no.47-iron fum 27 1 cap PO DAILY #90 caps 05/21/22 0 01/17/25 Rx mg-folate no.1 1 mg-dha 300 mg capsule (Virt-PN DHA) calcium carbonate (Calcium Antacid) 400 mg PO ONCE 07/29/24 5 History blood sugar diagnostic (Accu-Chek #100 ea 12/31/24 01/17/25 Rx Guide test strips) blood-glucose meter #1 ea 12/31/24 01/17/25 Rx lancets 28 gauge (CareTouch Safety #100 ea 12/31/24 01/17/25 Rx Lancets) blood sugar diagnostic #100 ea 01/17/25 01/17/25 Rx blood-glucose meter #1 ea 01/17/25 01/17/25 Rx Last Menstrual Period: 06/07/24 : No Have you fallen in the past year?: No PFSH PFSH Medical History Encounter for management of intrauterine contraceptive device (IUD) Abnormal uterine bleeding (AUB) Vaginal delivery Chlamydia infection affecting Rh negative status during Abnormal glucose affecting Environmental allergies Surgical History Hx of appendectomy History of appendectomy Family History Sister Seizures absent sz epilepsy sz Social History adopted: No household members: significant other and children housing: house number of children: 1 current occupational status: unemployed current occupation: [employer] current occupational exposures/hazards: No pets and animals: No history of recent travel: No sexually active: Yes Smoking Status: Former smoker quit date: 11/19/21 Tobacco: How many years used: 6 second hand exposure: No alcohol intake: never substance use type: does not use well-balanced diet: daily or most days caffeine: Yes (1 cup ) Type: coffee what type of physical activity do you participate in: weight training frequency: 3-4 times per week seatbelt use: always do you feel safe at home: No additional social history: , Maicol JL residential irasema History 2 Elective abortions Hx Para Spontaneous abortions Hx # Term Pregnancies 1 Ectopic pregnancies Hx # Pregnancies Multiple births # of living children 1 Past Pregnancies Del. Date Name GA/Weeks Outcome Route Bth Weight Gen Labor Lgth Anesthesia Del Locatn Provider FOB 10/27/22 Arabella Cornejo 40 live - full term 8# Female [facility] Ma rcanthony Delivery Date: 10/27/22 Last Updated by: July Hinkle IOL HPI 30wk3d ob *lynda from 01/12 Details: HATTIE PRO is a 24 year old who presents for routine OB visit. OB Visit TAY Calculator Estimated Delivery Date Method Current WG Current Estimate 03/25/25 Ultrasound #1 30w 3d Other Estimates 03/14/25 LMP (Certain) 32w 0d 03/28/25 Ultrasound #2 30w 0d Expected Delivery Route/Plan Labor Preferences- CB/BF classes: [] labor support person: Maicol labor intervention preferences: [] pain management options preferred: limited intervention cut cord/dad catch: yes : yes PP control planned: [] discussed possible routes of delivery and associated risks: [] special requests: [] Specific Issue/Plans Covid status: [] Flu vaccine: [] Tdap vaccine: [] Rhogam: [] LARC form signed: yes Problem list reviewed and updated with the most current plan of care details and appropriate orders placed. Relevant counseling for the gestational age provided. Continue routine care and follow up unless otherwise noted in visit notes/problem list details Initial Weight: Not Recorded Date -???-???-???-???-??? -???-???-???-???-??? -???-???- EGA Weight BP Urine Prot -???-???-???-???-??? -???-???-???-???-??? -???-???- Glucose FHR FuHt Pres Dilation -???-???-???-???-??? -???-???-???-???-??? -???-???- Effaced St Visit Note 08/13/24 -???-???-???-???-??? -???-???-???-???-??? -???-???- 8w 0d 205 lb 2 oz 113/76 -???-???-???-???-??? -???-???-???-???-??? -???-???- 140 -???-???-???-???-??? -???-???-???- (more content not included)... Normal [facility] Line Controller Office Visit Reporton 12-31-2024 Line Controller Office Visit Report [facility] [address], [address] [place] [address] OFFICE VISIT Date of Service: 12/31/24 MR#: [id number] Acct: [id number] Name: HATTIE PRO Rep #: [id number] : 2000 Provider: SILVIA Hardy ams Age/Sex: 24/F [place] [facility] [place]: Signed Intake Vital Signs 11/19/24 09:19 12/16/24 09:58 12/31/24 11:27 Height 5 ft 3 in 5 ft 3 in 5 ft 3 in Weight: 197 lb 4 oz BMI 34.9 BP 111/71 Intake Visit Reasons: 28wk ob *move JV 01/14 appt Chief Complaint: 28wk OB Barrel Coater Required: No Is patient in pain?: No Allergies No Known Allergies Allergy (Verified 12/31/24 11:22) Medications ???Medication ???Instructions ???Recorded ???Confirmed ???Type multivitamin no.47-iron fum 27 1 cap PO DAILY #90 caps 05/21/22 0 12/31/24 Rx mg-folate no.1 1 mg-dha 300 mg capsule (Virt-PN DHA) calcium carbonate (Calcium Antacid) 400 mg PO ONCE 07/29/24 5 History Last Menstrual Period: 06/07/24 : No PFSH PFSH Medical History Encounter for management of intrauterine contraceptive device (IUD) Abnormal uterine bleeding (AUB) Vaginal delivery Chlamydia infection affecting Rh negative status during Abnormal glucose affecting Environmental allergies Surgical History Hx of appendectomy History of appendectomy Family History Sister Seizures absent sz epilepsy sz Social History adopted: No household members: significant other and children housing: house number of children: 1 current occupational status: unemployed current occupation: [employer] current occupational exposures/hazards: No pets and animals: No history of recent travel: No sexually active: Yes Smoking Status: Former smoker quit date: 11/19/21 Tobacco: How many years used: 6 second hand exposure: No alcohol intake: never substance use type: does not use well-balanced diet: daily or most days caffeine: Yes (1 cup ) Type: coffee what type of physical activity do you participate in: weight training frequency: 3-4 times per week seatbelt use: always do you feel safe at home: No additional social history: , Maicol JL residential irasema History 2 Elective abortions Hx Para Spontaneous abortions Hx # Term Pregnancies 1 Ectopic pregnancies Hx # Pregnancies Multiple births # of living children 1 Past Pregnancies Del. Date Name GA/Weeks Outcome Route Bth Weight Gen Labor Lgth Anesthesia Del Locatn Provider FOB 10/27/22 Arabella Cornejo 40 live - full term 8# Female [facility] Delivery Date: 10/27/22 Last Updated by: July Hinkle IOL HPI 28wk ob *move JV 01/14 appt Details: HATTIE PRO is a 24 year old who presents for routine OB visit. OB Visit TAY Calculator Estimated Delivery Date Method Current WG Current Estimate 03/25/25 Ultrasound #1 28w 0d Other Estimates 03/14/25 LMP (Certain) 29w 4d 03/28/25 Ultrasound #2 27w 4d Expected Delivery Route/Plan Labor Preferences- CB/BF classes: [] labor support person: Maicol labor intervention preferences: [] pain management options preferred: limited intervention cut cord/dad catch: yes : yes PP control planned: [] discussed possible routes of delivery and associated risks: [] special requests: [] Specific Issue/Plans Covid status: [] Flu vaccine: [] Tdap vaccine: [] Rhogam: [] LARC form signed: yes Problem list reviewed and updated with the most current plan of care details and appropriate orders placed. Relevant counseling for the gestational age provided. Continue routine care and follow up unless otherwise noted in visit notes/problem list details Initial Weight: Not Recorded Date -???-???-???-???-??? -???-???-???-???-??? -???-???- EGA Weight BP Urine Prot -???-???-???-???-??? -???-???-???-???-??? -???-???- Glucose FHR FuHt Pres Dilation -???-???-???-???-??? -???-???-???-???-??? -???-???- Effaced St Visit Note 08/13/24 -???-???-???-???-??? -???-???-???-???-??? -???-???- 8w 0d 205 lb 2 oz 113/76 -???-???-???-???-??? -???-???-???-???-??? -???-???- 140 -???-???-???-???-??? -???-???-???-???-??? -???-???- JV- CRL not consistent with LMP. no bleeding, or cramping. CRL consistent with 8 weeks 0 days. no COLETTE. return 2 weeks for NIPT and heart beat check. 08/26/24 -???-???-???-???-??? -???-???-???-???-??? -???-???- 9w 6d 205 lb 127/76 Negative -???-???-???-???-??? -???-???-???-???-??? -???-???- Negative 170 -???-???-???-???-??? -???-???-???-???-??? -? (more content not included)... Normal [facility] Line Controller Office Visit Reporton 12-16-2024 Line Controller Office Visit Report [facility] [address], [address] [place] [address] OFFICE VISIT Date of Service: 12/16/24 MR#: [id number] Acct: [id number] Name: HATTIE PRO Rep #: [id number] 5 : 2000 Provider: ANGLE bowens Age/Sex: 23/F [place] [facility] [place] Status: Signed Intake Vital Signs 11/19/24 09:19 12/16/24 09:54 12/16/24 09:58 Height 5 ft 3 in 5 ft 3 in 5 ft 3 in Weight: 194 lb 2 oz 195 lb 6 oz BMI 34.4 34.6 BP 105/60 98/64 Intake Visit Reasons: 26 WK OB Chief Complaint: 26 Week OB Barrel Coater Required: No Is patient in pain?: No Allergies No Known Allergies Allergy (Verified 12/16/24 09:53) Medications ???Medication ???Instructions ???Recorded ???Confirmed ???Type multivitamin no.47-iron fum 27 1 cap PO DAILY #90 caps 05/21/22 0 12/16/24 Rx mg-folate no.1 1 mg-dha 300 mg capsule (Virt-PN DHA) calcium carbonate (Calcium Antacid) 400 mg PO ONCE 07/29/24 5 History Last Menstrual Period: 06/07/24 Zika: Zika virus screening: Negative : No PFSH PFSH Medical History Encounter for management of intrauterine contraceptive device (IUD) Abnormal uterine bleeding (AUB) Vaginal delivery Chlamydia infection affecting Rh negative status during Abnormal glucose affecting Environmental allergies Surgical History Hx of appendectomy History of appendectomy Family History Sister Seizures absent sz epilepsy sz Social History adopted: No household members: significant other and children housing: house number of children: 1 current occupational status: unemployed current occupation: [employer] current occupational exposures/hazards: No pets and animals: No history of recent travel: No sexually active: Yes Smoking Status: Former smoker quit date: 11/19/21 Tobacco: How many years used: 6 second hand exposure: No alcohol intake: never substance use type: does not use well-balanced diet: daily or most days caffeine: Yes (1 cup ) Type: coffee what type of physical activity do you participate in: weight training frequency: 3-4 times per week seatbelt use: always do you feel safe at home: No additional social history: , Maicol JL residential irasema History 2 Elective abortions Hx Para Spontaneous abortions Hx # Term Pregnancies 1 Ectopic pregnancies Hx # Pregnancies Multiple births # of living children 1 Past Pregnancies Del. Date Name GA/Weeks Outcome Route Bth Weight Gen Labor Lgth Anesthesia Del Locatn Provider FOB 10/27/22 Arabella Cornejo 40 live - full term 8# Female [facility] rc[facility]ony Delivery Date: 10/27/22 Last Updated by: July Hinkle IOL HPI 26 WK OB Details: HATTIE PRO is a 23 year old who presents for routine OB visit. OB Visit TAY Calculator Estimated Delivery Date Method Current WG Current Estimate 03/25/25 Ultrasound #1 25w 6d Other Estimates 03/14/25 LMP (Certain) 27w 3d 03/28/25 Ultrasound #2 25w 3d Expected Delivery Route/Plan Labor Preferences- CB/BF classes: [] labor support person: Maicol labor intervention preferences: [] pain management options preferred: limited intervention cut cord/dad catch: yes : yes PP control planned: [] discussed possible routes of delivery and associated risks: [] special requests: [] Specific Issue/Plans Covid status: [] Flu vaccine: [] Tdap vaccine: [] Rhogam: [] LARC form signed: yes Problem list reviewed and updated with the most current plan of care details and appropriate orders placed. Relevant counseling for the gestational age provided. Continue routine care and follow up unless otherwise noted in visit notes/problem list details Initial Weight: Not Recorded Date -???-???-???-???-??? -???-???-???-???-??? -???-???- EGA Weight BP Urine Prot -???-???-???-???-??? -???-???-???-???-??? -???-???- Glucose FHR FuHt Pres Dilation -???-???-???-???-??? -???-???-???-???-??? -???-???- Effaced St Visit Note 08/13/24 -???-???-???-???-??? -???-???-???-???-??? -???-???- 8w 0d 205 lb 2 oz 113/76 -???-???-???-???-??? -???-???-???-???-??? -???-???- 140 -???-???-???-???-??? -???-???-???-???-??? -???-???- JV- CRL not consistent with LMP. no bleeding, or cramping. CRL consistent with 8 weeks 0 days. no COLETTE. return 2 weeks for NIPT and heart beat check. 08/26/24 -???-???-???-???-??? -???-???-???-???-??? -???-???- 9w 6d 205 lb 127/76 Negative -???-???-???-???-??? -???-???-???-???-??? -???-???- Neg (more content not included)... Normal [facility] Line Controller Office Visit Reporton 11-19-2024 Line Controller Office Visit Report [facility] [address], [address] [place] [address] OFFICE VISIT Date of Service: 11/19/24 MR#: [id number] Acct: [id number] Name: HATTIE PRO Rep #: [id number] 8 : 2000 Provider: Dr. Isatu duff MD Age/Sex: 23/F [place] [facility] [place] Status: Signed Intake Vital Signs 10/08/24 10:55 11/19/24 09:19 Height 5 ft 3 in 5 ft 3 in Weight: 194 lb 2 oz BMI 34.4 BP 105/60 Intake Visit Reasons: 22wk ob *lynda from 11/09 Barrel Coater Required: No Is patient in pain?: No Allergies No Known Allergies Allergy (Verified 11/19/24 09:25) Medications ???Medication ???Instructions ???Recorded ???Confirmed ???Type multivitamin no.47-iron fum 27 1 cap PO DAILY #90 caps 05/21/22 0 11/19/24 Rx mg-folate no.1 1 mg-dha 300 mg capsule (Virt-PN DHA) calcium carbonate (Calcium Antacid) 400 mg PO ONCE 07/29/24 5 History Last Menstrual Period: 06/07/24 Zika: Zika virus screening: Negative : No Have you fallen in the past year?: No PFSH PFS Medical History (Updated 11/19/24 @ 10:[address] Isatu Liu MD) Encounter for management of intrauterine contraceptive device (IUD) Abnormal uterine bleeding (AUB) Vaginal delivery Chlamydia infection affecting Rh negative status during Abnormal glucose affecting Environmental allergies Surgical History Hx of appendectomy History of appendectomy Family History Sister Seizures absent sz epilepsy sz Social History adopted: No household members: significant other and children housing: house number of children: 1 current occupational status: unemployed current occupation: [employer] current occupational exposures/hazards: No pets and animals: No history of recent travel: No sexually active: Yes Smoking Status: Former smoker quit date: 11/19/21 Tobacco: How many years used: 6 second hand exposure: No alcohol intake: never substance use type: does not use well-balanced diet: daily or most days caffeine: Yes (1 cup ) Type: coffee what type of physical activity do you participate in: weight training frequency: 3-4 times per week seatbelt use: always do you feel safe at home: No additional social history: , Maicol JL residential irasema History 2 Elective abortions Hx Para Spontaneous abortions Hx # Term Pregnancies 1 Ectopic pregnancies Hx # Pregnancies Multiple births # of living children 1 Past Pregnancies Del. Date Name GA/Weeks Outcome Route Bth Weight Gen Labor Lgth Anesthesia Del Locatn Provider FOB 10/27/22 Arabella Cornejo 40 live - full term 8# Female [facility] Delivery Date: 10/27/22 Last Updated by: July Hinkle IOL HPI 22wk ob *lynda from 11/09 Details: HATTIE PRO is a 23 year old who presents for routine OB visit. OB Visit TAY Calculator Estimated Delivery Date Method Current WG Current Estimate 03/25/25 Ultrasound #1 22w 0d Other Estimates 03/14/25 LMP (Certain) 23w 4d 03/28/25 Ultrasound #2 21w 4d Expected Delivery Route/Plan Labor Preferences- CB/BF classes: [] labor support person: [] labor intervention preferences: [] pain management options preferred: [] cut cord/dad catch: [] : [] PP control planned: [] discussed possible routes of delivery and associated risks: [] special requests: [] Specific Issue/Plans Covid status: [] Flu vaccine: [] Tdap vaccine: [] Rhogam: [] LARC form signed: [] Problem list reviewed and updated with the most current plan of care details and appropriate orders placed. Relevant counseling for the gestational age provided. Continue routine care and follow up unless otherwise noted in visit notes/problem list details Initial Weight: Not Recorded Date -???-???-???-???-??? -???-???-???-???-??? -???-???- EGA Weight BP Urine Prot -???-???-???-???-??? -???-???-???-???-??? -???-???- Glucose FHR FuHt Pres Dilation -???-???-???-???-??? -???-???-???-???-??? -???-???- Effaced St Visit Note 08/13/24 -???-???-???-???-??? -???-???-???-???-??? -???-???- 8w 0d 205 lb 2 oz 113/76 -???-???-???-???-??? -???-???-???-???-??? -???-???- 140 -???-???-???-???-??? -???-???-???-???-??? -???-???- JV- CRL not consistent with LMP. no bleeding, or cramping. CRL consistent with 8 weeks 0 days. no COLETTE. return 2 weeks for NIPT and heart beat check. 08/26/24 -???-???-???-???-??? -???-???-???-???-??? -???-???- 9w 6d 205 lb 127/76 Negative -???-???-???-???-??? -???-???-???-???-??? -???-???- Negative 170 -???-???-???- (more content not included)... Normal [facility] Line Controller Office Visit Reporton 10-08-2024 Line Controller Office Visit Report [facility] [address], [facility] [address] [place] [address] OFFICE VISIT Date of Service: 10/08/24 MR#: [id number] Acct: [id number] Name: HATTIE PRO Rep #: [id number] 8 : 2000 Provider: SILVIA Hardy ams Age/Sex: 23/F [place] [facility] [place] Status: Signed Intake Vital Signs 08/26/24 10:40 09/10/24 15:28 10/08/24 10:55 Height 5 ft 3 in 5 ft 3 in 5 ft 3 in Weight: 197 lb BMI 34.9 BP 108/64 Intake Visit Reasons: 16 wk ob Chief Complaint: 16 week OB Barrel Coater Required: No Is patient in pain?: No Allergies No Known Allergies Allergy (Verified 10/08/24 10:54) Medications ???Medication ???Instructions ???Recorded ???Confirmed ???Type multivitamin no.47-iron fum 27 1 cap PO DAILY #90 caps 05/21/22 0 10/08/24 Rx mg-folate no.1 1 mg-dha 300 mg capsule (Virt-PN DHA) calcium carbonate (Calcium Antacid) 400 mg PO ONCE 07/29/24 5 History Last Menstrual Period: 06/07/24 Zika: Zika virus screening: Negative : No PFSH PFSH Medical History Encounter for management of intrauterine contraceptive device (IUD) Abnormal uterine bleeding (AUB) Vaginal delivery Chlamydia infection affecting Rh negative status during Abnormal glucose affecting Environmental allergies Surgical History Hx of appendectomy History of appendectomy Family History Sister Seizures absent sz epilepsy sz Social History adopted: No household members: significant other and children housing: house number of children: 1 current occupational status: unemployed current occupation: [employer] current occupational exposures/hazards: No pets and animals: No history of recent travel: No sexually active: Yes Smoking Status: Former smoker quit date: 11/19/21 Tobacco: How many years used: 6 second hand exposure: No alcohol intake: never substance use type: does not use well-balanced diet: daily or most days caffeine: Yes (1 cup ) Type: coffee what type of physical activity do you participate in: weight training frequency: 3-4 times per week seatbelt use: always do you feel safe at home: No additional social history: , Maicol FARLEY residential irasema History 2 Elective abortions Hx Para Spontaneous abortions Hx # Term Pregnancies 1 Ectopic pregnancies Hx # Pregnancies Multiple births # of living children 1 Past Pregnancies Del. Date Name GA/Weeks Outcome Route Bth Weight Infant Gen Labor Lgth Anesthesia Del Locatn Provider FOB 10/27/22 Arabella Cornejo 40 live - full term 8# Female [facility] Ma rc[facility]ony Delivery Date: 10/27/22 Last Updated by: July Hinkle IOL HPI 16 wk ob Details: HATTIE PRO is a 23 year old who presents for routine OB visit. OB Visit TAY Calculator Estimated Delivery Date Method Current WG Current Estimate 03/25/25 Ultrasound #1 16w 0d Other Estimates 03/14/25 LMP (Certain) 17w 4d 03/28/25 Ultrasound #2 15w 4d Expected Delivery Route/Plan Labor Preferences- CB/BF classes: [] labor support person: [] labor intervention preferences: [] pain management options preferred: [] cut cord/dad catch: [] : [] PP control planned: [] discussed possible routes of delivery and associated risks: [] special requests: [] Specific Issue/Plans Covid status: [] Flu vaccine: [] Tdap vaccine: [] Rhogam: [] LARC form signed: [] Problem list reviewed and updated with the most current plan of care details and appropriate orders placed. Relevant counseling for the gestational age provided. Continue routine care and follow up unless otherwise noted in visit notes/problem list details Initial Weight: Not Recorded Date -???-???-???-???-??? -???-???-???-???-??? -???-???- EGA Weight BP Urine Prot -???-???-???-???-??? -???-???-???-???-??? -???-???- Glucose FHR FuHt Pres Dilation -???-???-???-???-??? -???-???-???-???-??? -???-???- Effaced St Visit Note 08/13/24 -???-???-???-???-??? -???-???-???-???-??? -???-???- 8w 0d 205 lb 2 oz 113/76 -???-???-???-???-??? -???-???-???-???-??? -???-???- 140 -???-???-???-???-??? -???-???-???-???-??? -???-???- JV- CRL not consistent with LMP. no bleeding, or cramping. CRL consistent with 8 weeks 0 days. no COLETTE. return 2 weeks for NIPT and heart beat check. 08/26/24 -???-???-???-???-??? -???-???-???-???-??? -???-???- 9w 6d 205 lb 127/76 Negative -???-???-???-???-??? -???-???-???-???-??? -???-???- Negative 170 -???-???-???-???-??? -???-???-???-???-??? (more content not included)... Normal [facility] Line Controller Office Visit Reporton 09-10-2024 Line Controller Office Visit Report [facility] [address], [facility] [address] [place] [address] OFFICE VISIT Date of Service: 09/10/24 MR#: [id number] Acct: [id number] Name: HATTIE PRO Rep #: [id number] 5 : 2000 Provider: SILVIA Hardy ams Age/Sex: 23/F [place] [facility] [place]: Signed Intake Vital Signs 05/29/24 15:50 08/26/24 10:40 09/10/24 15:28 Height 5 ft 3 in 5 ft 3 in 5 ft 3 in Weight: 201 lb 6 oz BMI 35.6 BP 120/76 Intake Visit Reasons: 12WK OB Chief Complaint: 12wk OB Barrel Coater Required: No Is patient in pain?: No Allergies No Known Allergies Allergy (Verified 09/10/24 15:25) Medications ???Medication ???Instructions ???Recorded ???Confirmed ???Type multivitamin no.47-iron fum 27 1 cap PO DAILY #90 caps 05/21/22 0 09/10/24 Rx mg-folate no.1 1 mg-dha 300 mg capsule (Virt-PN DHA) calcium carbonate (Calcium Antacid) 400 mg PO ONCE 07/29/24 5 History Last Menstrual Period: 06/07/24 : No Have you fallen in the past year?: No PFSH PFSH Medical History Encounter for management of intrauterine contraceptive device (IUD) Abnormal uterine bleeding (AUB) Vaginal delivery Chlamydia infection affecting Rh negative status during Abnormal glucose affecting Environmental allergies Surgical History Hx of appendectomy History of appendectomy Family History Sister Seizures absent sz epilepsy sz Social History adopted: No household members: significant other and children housing: house number of children: 1 current occupational status: unemployed current occupation: [employer] current occupational exposures/hazards: No pets and animals: No history of recent travel: No sexually active: Yes Smoking Status: Former smoker quit date: 11/19/21 Tobacco: How many years used: 6 second hand exposure: No alcohol intake: never substance use type: does not use well-balanced diet: daily or most days caffeine: Yes (1 cup ) Type: coffee what type of physical activity do you participate in: weight training frequency: 3-4 times per week seatbelt use: always do you feel safe at home: No additional social history: , Maicol JL residential irasema History 2 Elective abortions Hx Para Spontaneous abortions Hx # Term Pregnancies 1 Ectopic pregnancies Hx # Pregnancies Multiple births # of living children 1 Past Pregnancies Del. Date Name GA/Weeks Outcome Route Bth Weight Infant Gen Labor Lgth Anesthesia Del Locatn Provider FOB 10/27/22 Arabella Cornejo 40 live - full term 8# Female [facility] rc[facility]ony Delivery Date: 10/27/22 Last Updated by: July Hinkle IOL HPI 12WK OB Details: HATTIE PRO is a 23 year old who presents for routine OB visit. OB Visit TAY Calculator Estimated Delivery Date Method Current WG Current Estimate 12/05/25 Ultrasound #1 12w 0d Other Estimates 03/14/25 LMP (Certain) 13w 4d 03/28/25 Ultrasound #2 11w 4d Expected Delivery Route/Plan Labor Preferences- CB/BF classes: [] labor support person: [] labor intervention preferences: [] pain management options preferred: [] cut cord/dad catch: [] : [] PP control planned: [] discussed possible routes of delivery and associated risks: [] special requests: [] Specific Issue/Plans Covid status: [] Flu vaccine: [] Tdap vaccine: [] Rhogam: [] LARC form signed: [] Problem list reviewed and updated with the most current plan of care details and appropriate orders placed. Relevant counseling for the gestational age provided. Continue routine care and follow up unless otherwise noted in visit notes/problem list details Initial Weight: Not Recorded Date -???-???-???-???-??? -???-???-???-???-??? -???-???- EGA Weight BP Urine Prot -???-???-???-???-??? -???-???-???-???-??? -???-???- Glucose FHR FuHt Pres Dilation -???-???-???-???-??? -???-???-???-???-??? -???-???- Effaced St Visit Note 08/13/24 -???-???-???-???-??? -???-???-???-???-??? -???-???- 8w 0d 205 lb 2 oz 113/76 -???-???-???-???-??? -???-???-???-???-??? -???-???- 140 -???-???-???-???-??? -???-???-???-???-??? -???-???- JV- CRL not consistent with LMP. no bleeding, or cramping. CRL consistent with 8 weeks 0 days. no COLETTE. return 2 weeks for NIPT and heart beat check. 08/26/24 -???-???-???-???-??? -???-???-???-???-??? -???-???- 9w 6d 205 lb 127/76 Negative -???-???-???-???-??? -???-???-???-???-??? -???-???- Negative 170 -???-???-???-???-??? -???-???-???-???-??? -???-???- KW- no vb/c (more content not included)... Normal [facility] [id number] 09-01-2024 HEP B Surf Ag Non-Reactive Normal Nonreactive [facility] Comment on above: Result Comment: Reac tive: Presumptive evidence of HBV. Repeatedly reactive samples must be confirmed using a neutralization test ([employer] HBsAg Confirmatory Test) Non-Reactive: HBsAg not detected; does not exclude the possibility of exposure to HBV Performed By: #### L 501.9985, L900.0098, L3890.6006, L100.0100, BTS, L3890.6301, L509.8002, L3890.6102, L509.4006 ####[facility] [address] [place], [address] CBC W/Diff, Automatedon 08-19 Absolute Lymph 2.07 X10 3/uL Normal 0.83-4.51 [facility] Comment on above: Performed By: #### L 501.9985, L900.0098, L3890.6006, L100.0100, BTS, L3890.6301, L509.8002, L3890.6102, L509.4006 ####[facility] [address] [place], [address] Absolute Neut 4.8 X10 3/uL Normal 2.0-7.7 [facility] Comment on above: Performed By: #### L 501.9985, L900.0098, L3890.6006, L100.0100, BTS, L3890.6301, L509.8002, L3890.6102, L509.4006 ####[facility] [address] [place], [address] Basophils/100 WBC (Bld) 0.5 % Normal 0-1 [facility] Comment on above: Performed By: #### L 501.9985, L900.0098, L3890.6006, L100.0100, BTS, L3890.6301, L509.8002, L3890.6102, L509.4006 ####[facility] [address] [place], [address] Eosinophils/100 WBC (Bld) 1.2 % Normal 0-5 [facility] Comment on above: Performed By: #### L 501.9985, L900.0098, L3890.6006, L100.0100, BTS, L3890.6301, L509.8002, L3890.6102, L509.4006 ####[facility] [id number] [place], [address] Erythrocyte distribution width (RBC) [Ratio] 13.1 % Normal 11.6-14.6 [facility] Comment on above: Performed By: #### L 501.9985, L900.0098, L3890.6006, L100.0100, BTS, L3890.6301, L509.8002, L3890.6102, L509.4006 ####[facility] [address] [place], [address] Hematocrit (Bld) [Volume fraction] 38.1 % Normal 37-47 [facility] Comment on above: Performed By: #### L 501.9985, L900.0098, L3890.6006, L100.0100, BTS, L3890.6301, L509.8002, L3890.6102, L509.4006 ####[facility] [address] [place], [address] Hemoglobin (Bld) [Mass/Vol] 12.6 g/dL Normal 12.0-15.0 [facility] Comment on above: Performed By: #### L 501.9985, L900.0098, L3890.6006, L100.0100, BTS, L3890.6301, L509.8002, L3890.6102, L509.4006 ####[facility] [address] [place], [place], [phone] IG% 0.400 Normal 0.0-0.9 [facility] Comment on above: Result Comment: IG% - Immature Granulocytes (promyelocytes, myelocytes and metamyelocytes) > 1% indicates that a LEFT SHIFT is Present. Performed By: #### L 501.9985, L900.0098, L3890.6006, L100.0100, BTS, L3890.6301, L509.8002, L3890.6102, L509.4006 ####[facility] [address] [place], [address] Lymphocytes/100 WBC (Bld) 27.2 % Normal 19-41 [facility] [facility] Comment on above: Performed By: #### L 501.9985, L900.0098, L3890.6006, L100.0100, BTS, L3890.6301, L509.8002, L3890.6102, L509.4006 ####[facility] [address] [place], [address] MCH (RBC) [Entitic mass] 28.6 pg Normal 27.0-32.0 [facility] Comment on above: Performed By: #### L 501.9985, L900.0098, L3890.6006, L100.0100, BTS, L3890.6301, L509.8002, L3890.6102, L509.4006 ####[facility] [address] [place], [address] MCHC (RBC) [Mass/Vol] 33.1 g/dL Normal 32-36 [facility] Comment on above: Performed By: #### L 501.9985, L900.0098, L3890.6006, L100.0100, BTS, L3890.6301, L509.8002, L3890.6102, L509.4006 ####[facility] [address] [place], [address] MCV (RBC) [Entitic vol] 86.4 fL Normal 81-99 [facility] Comment on above: Performed By: #### L 501.9985, L900.0098, L3890.6006, L100.0100, BTS, L3890.6301, L509.8002, L3890.6102, L509.4006 ####[facility] [address] [place], [address] Monocytes/100 WBC (Bld) 7.3 % Normal 0-10 [facility] Comment on above: Performed By: #### L 501.9985, L900.0098, L3890.6006, L100.0100, BTS, L3890.6301, L509.8002, L3890.6102, L509.4006 ####[facility] [address] [place], [address] Neutrophils/100 WBC (Bld) 63.4 % Normal 47-70 [facility] Comment on above: Performed By: #### L 501.9985, L900.0098, L3890.6006, L100.0100, BTS, L3890.6301, L509.8002, L3890.6102, L509.4006 ####[facility] [address] [place], [address] Nucleated RBC (Bld) [#/Vol] 0 10*3/uL Normal 0-5 [facility] Comment on above: Performed By: #### L 501.9985, L900.0098, L3890.6006, L100.0100, BTS, L3890.6301, L509.8002, L3890.6102, L509.4006 ####[facility] [address] [place], [address] Platelet mean volume (Bld) [Entitic vol] 9.9 fL Normal 6.2-12.0 [facility] Comment on above: Performed By: #### L 501.9985, L900.0098, L3890.6006, L100.0100, BTS, L3890.6301, L509.8002, L3890.6102, L509.4006 ####[facility] [address] [place], [address] Platelets (Bld) [#/Vol] 270 10*3/uL Normal 150-450 [facility] Comment on above: Performed By: #### L 501.9985, L900.0098, L3890.6006, L100.0100, BTS, L3890.6301, L509.8002, L3890.6102, L509.4006 ####[facility] [address] [place], [address] RBC (Bld) [#/Vol] 4.41 10*6/uL Normal 4.2-5.4 [facility] Comment on above: Performed By: #### L 501.9985, L900.0098, L3890.6006, L100.0100, BTS, L3890.6301, L509.8002, L3890.6102, L509.4006 ####[facility] [address] [place], [address] RDW SD 40.9 fl Normal 35.1-43.9 [facility] Comment on above: Performed By: #### L 501.9985, L900.0098, L3890.6006, L100.0100, BTS, L3890.6301, L509.8002, L3890.6102, L509.4006 ####[facility] [address] [facility] [place], [address] WBC (Bld) [#/Vol] 7.6 10*3/uL Normal 4.4-11.0 [facility] Comment on above: Performed By: #### L 501.9985, L900.0098, L3890.6006, L100.0100, BTS, L3890.6301, L509.8002, L3890.6102, L509.4006 ####[facility] [address] [facility] [address] [facility] [place], [place], [id number] HIVon 08-30-2024 HIV Non-Reactive Normal Nonreactive [facility] Comment on above: Result Comment: Non- Reactive Reactive Repeatedly reactive samples must be confirmed according to CDC recommended confirmatory algorithms. The subresults for either HIVAG or AHIV can be used as an aid in the selection of the confirmation algorithm for reactive samples. Send out specimens with Reactive results to [facility] for confirmation. Order the HIV antibody detection and differentiation: lc#[id number] Performed By: #### L 501.9985, L900.0098, L3890.6006, L100.0100, BTS, L3890.6301, L509.8002, L3890.6102, L509.4006 ####[facility] [address] [place], [place], [address] Hemoglobin A1con 08-30-2024 HbA1c (Bld) [Mass fraction] 5.1 % Normal <=5.6 [facility] Comment on above: Result Comment: Norm al < 5.7 % Prediabetic 5.7 - 6.4 % Diabetic >or= 6.5 % Please note range changes. Performed By: #### L 501.9985, L900.0098, L3890.6006, L100.0100, BTS, L3890.6301, L509.8002, L3890.6102, L509.4006 ####[facility] [address] [place], [place], [id number] Hepatitis C Antibodyon 08-30 Hepatitis C Ab Non-Reactive Normal Nonreactive [facility] Comment on above: Result Comment: Reac tive: Presumptive evidence of antibodies to HCV. Follow CDC recommendations for supplemental testing. Non-Reactive: Antibodies to HCV were not detected; does not exclude the possibility of exposure to HCV Reactive Results are presumptive evidence of antibodies to HCV. Follow CDC recommendations for supplemental testing. Order confirmation testing: HCV Quant by PCR testing - HCVPCR lc#[id number] Non Reactive: < 0.8 Equivocal: >/= 0.8 to < 1.0 Reactive: >/= 1.0 The CDC requires that a reactive/equivocal HCV antibody result be sent out for confirmation. HCV Quant by PCR testing. Performed By: #### L 501.9985, L900.0098, L3890.6006, L100.0100, BTS, L3890.6301, L509.8002, L3890.6102, L509.4006 ####[facility] [address] [place], [address] L509.4006on 08-30-2024 Rubella IgG REAC Normal Nonreactive [facility] Comment on above: Result Comment: Anti body Result: Interpretation Non-Reactive: Non-Immune Reactive: Immune The following results were obtained with the [employer] Rubella IgG assay. Results from assays of other manufacturers cannot be used interchangeably. Performed By: #### L 501.9985, L900.0098, L3890.6006, L100.0100, BTS, L3890.6301, L509.8002, L3890.6102, L509.4006 ####[facility] [address] [place], [place], [address] NATERAon 08-30-2024 NATURA SEE SCANNED REPORT Normal [facility] Comment on above: Performed By: #### L 501.9985, L900.0098, L3890.6006, L100.0100, BTS, L3890.6301, L509.8002, L3890.6102, L509.4006 ####[facility] [address] [place], [address] Syphilis Antibodieson 2024 Syphilis Abs Non-Reactive Normal Nonreactive [facility] Comment on above: Performed By: #### L 501.9985, L900.0098, L3890.6006, L100.0100, BTS, L3890.6301, L509.8002, L3890.6102, L509.4006 ####[facility] [address] [place], [place], [address] Type AND Screenon 08-30-2024 Ab SCREEN GEL Negative Normal [facility] Comment on above: Order Comment: PN Performed By: #### L 501.9985, L900.0098, L3890.6006, L100.0100, BTS, L3890.6301, L509.8002, L3890.6102, L509.4006 ####[facility] [address] [place], [place], [address] Line Controller Office Visit Reporton 08-26-2024 Line Controller Office Visit Report [facility] [address], [address] [place] [address] OFFICE VISIT Date of Service: 08/26/24 MR#: [id number] Acct: [id number] Name: HATTIE PRO Rep #: [id number] : 2000 Provider: SILVIA Hardy ams Age/Sex: 23/F [place] [facility] [place] Signed Intake Vital Signs 08/13/24 10:47 08/26/24 10:40 Height 5 ft 3 in 5 ft 3 in Weight: 205 lb BMI 36.3 BP 127/76 H Intake Visit Reasons: heartbeat check *labs Chief Complaint: Heartbeat check labs Barrel Coater Required: No Is patient in pain?: No Allergies No Known Allergies Allergy (Verified 08/26/24 10:38) Medications ???Medication ???Instructions ???Recorded ???Confirmed ???Type multivitamin no.47-iron fum 27 1 cap PO DAILY #90 caps 05/21/22 0 08/26/24 Rx mg-folate no.1 1 mg-dha 300 mg capsule (Virt-PN DHA) calcium carbonate (Calcium Antacid) 400 mg PO ONCE 07/29/24 5 History Last Menstrual Period: 06/07/24 : No PFSH PFSH Medical History Encounter for management of intrauterine contraceptive device (IUD) Abnormal uterine bleeding (AUB) Vaginal delivery Chlamydia infection affecting Rh negative status during Abnormal glucose affecting Environmental allergies Surgical History Hx of appendectomy History of appendectomy Family History Sister Seizures absent sz epilepsy sz Social History adopted: No household members: significant other and children housing: house number of children: 1 current occupational status: unemployed current occupation: [employer] current occupational exposures/hazards: No pets and animals: No history of recent travel: No sexually active: Yes Smoking Status: Former smoker quit date: 11/19/21 Tobacco: How many years used: 6 second hand exposure: No alcohol intake: never substance use type: does not use well-balanced diet: daily or most days caffeine: Yes (1 cup ) Type: coffee what type of physical activity do you participate in: weight training frequency: 3-4 times per week seatbelt use: always do you feel safe at home: No additional social history: , Ma[employer] [facility] residential iraseam History 2 Elective abortions Hx Para Spontaneous abortions Hx # Term Pregnancies 1 Ectopic pregnancies Hx # Pregnancies Multiple births # of living children 1 Past Pregnancies Del. Date Name GA/Weeks Outcome Route Bth Weight Infant Gen Labor Lgth Anesthesia Del Locatn Provider FOB 10/27/22 Arabella Cornejo 40 live - full term 8# Female [facility] rcanthony Delivery Date: 10/27/22 Last Updated by: July Hinkle IOL HPI heartbeat check *labs Details: HATTIE PRO is a 23 year old who presents for routine OB visit. OB Visit TAY Calculator Estimated Delivery Date Method Current WG Current Estimate 03/25/25 Ultrasound #1 9w 6d Other Estimates 03/14/25 LMP (Certain) 11w 3d 03/28/25 Ultrasound #2 9w 3d Expected Delivery Route/Plan Labor Preferences- CB/BF classes: [] labor support person: [] labor intervention preferences: [] pain management options preferred: [] cut cord/dad catch: [] : [] PP control planned: [] discussed possible routes of delivery and associated risks: [] special requests: [] Specific Issue/Plans Covid status: [] Flu vaccine: [] Tdap vaccine: [] Rhogam: [] LARC form signed: [] Problem list reviewed and updated with the most current plan of care details and appropriate orders placed. Relevant counseling for the gestational age provided. Continue routine care and follow up unless otherwise noted in visit notes/problem list details Initial Weight: Not Recorded Date -???-???-???-???-??? -???-???-???-???-??? -???-???- EGA Weight BP Urine Prot -???-???-???-???-??? -???-???-???-???-??? -???-???- Glucose FHR FuHt Pres Dilation -???-???-???-???-??? -???-???-???-???-??? -???-???- Effaced St Visit Note 08/13/24 -???-???-???-???-??? -???-???-???-???-??? -???-???- 8w 0d 205 lb 2 oz 113/76 -???-???-???-???-??? -???-???-???-???-??? -???-???- 140 -???-???-???-???-??? -???-???-???-???-??? -???-???- JV- CRL not consistent with LMP. no bleeding, or cramping. CRL consistent with 8 weeks 0 days. no COLETTE. return 2 weeks for NIPT and heart beat check. 08/26/24 -???-???-???-???-??? -???-???-???-???-??? -???-???- 9w 6d 205 lb 127/76 Negative -???-???-???-???-??? -???-???-???-???-??? -???-???- Negative 170 -???-???-???-???-??? -???-???-???-???-??? -???-???- KW- no vb/cr amping. measuring 9.3 weeks (more content not included)... Normal [facility] PAP I-G w/rfx hrHPV-Aptimaon 08-19-2024 ADEQ Comment Normal . [facility] Comment on above: Order Comment: Speci men Comment: [id number] Comment: Source.............CervixSpecimen Comment: Other..............Specimen Comment: No. of containers..01 ThinPrep Vial Result Comment: Sati sfactory for evaluation. Endocervical and/or squamous metaplastic cells (endocervical component) are present. Performed By: #### M 100.2200, L7000.1800, L7400.0353 ####[facility] [address] [place], [place], [address] COMM . Normal . [facility] Comment on above: Order Comment: Speci men Comment: [id number] Comment: Source.............CervixSpecimen Comment: Other..............Specimen Comment: No. of containers..01 ThinPrep Vial Performed By: #### M 100.2200, L7000.1800, L7400.0353 ####[facility] [address] [place], [place], [address] COMMENT Comment Normal . [facility] Comment on above: Order Comment: Speci men Comment: [id number] Comment: Source.............CervixSpecimen Comment: Other..............Specimen Comment: No. of containers..01 ThinPrep Vial Result Comment: This liquid based ThinPrep(R) pap test was screened with the use of an image guided system. Performed By: #### M 100.2200, L7000.1800, L7400.0353 ####[facility] [address] [place], [place], [address] DIAG Comment Normal . [facility] Comment on above: Order Comment: Speci men Comment: [id number] Comment: Source.............CervixSpecimen Comment: Other..............Specimen Comment: No. of containers..01 ThinPrep Vial Result Comment: NEGA TIVE FOR INTRAEPITHELIAL LESION OR MALIGNANCY. FUNGAL ORGANISMS MORPHOLOGICALLY CONSISTENT WITH JACKELYN SPECIES ARE PRESENT. Performed By: #### M 100.2200, L7000.1800, L7400.0353 ####[facility] [address] [place], [place], [address] HPV RFLX Comment Normal . [facility] Comment on above: Order Comment: Speci men Comment: [id number] Comment: Source.............CervixSpecimen Comment: Other..............Specimen Comment: No. of containers..01 ThinPrep Vial Result Comment: The HPV DNA reflex criteria were not met with this specimen result therefore, no HPV testing was performed. Performed at: [facility] [address] [place] [id number] Optical Worker: Bahman Turner MD, Phone: [phone] Performed at: [facility] [id number] Optical Worker: Soniya Goodman MD, Phone: [phone] Performed By: #### M 100.2200, L7000.1800, L7400.0353 ####[facility] [address] [place], [place], [id number] PAPSMR Comment Normal . [facility] Comment on above: Order Comment: Speci men Comment: [id number] Comment: Source.............CervixSpecimen Comment: Other..............Specimen Comment: No. of containers..01 ThinPrep Vial Result Comment: The Pap smear is a screening test designed to aid in the detection of premalignant and malignant conditions of the uterine cervix. It is not a diagnostic procedure and should not be used as the sole means of detecting cervical cancer. Both false-positive and false-negative reports do occur. Performed By: #### M 100.2200, L7000.1800, L7400.0353 ####[facility] [address] [place], [address] PERFORM Comment Normal . [facility] Comment on above: Order Comment: Speci men Comment: [id number] Comment: Source.............CervixSpecimen Comment: Other..............Specimen Comment: No. of containers..01 ThinPrep Vial Result Comment: Lorene Abdi, Seafood Preparer (ASCP) Performed By: #### M 100.2200, L7000.1800, L7400.0353 ####[facility] [address] [place], [address] Chlamydia/GC TORREY aptimaon CHLAMY,NUC ACID Negative Normal Negative [facility] Comment on above: Performed By: #### M 100.2200, L7000.1800, L7400.0353 ####[facility] [address] [place], [address] GC BY NUC ACID Negative Normal Negative [facility] Comment on above: Result Comment: Perf ormed at: =G - [facility] [address] [id number] Optical Worker: Soniya Goodman MD, Phone: [phone] Performed By: #### M 100.2200, L7000.1800, L7400.0353 ####[facility] [address] [place], [address] Urine Cultureon 08-14-2024 URC Mixed Gram Positive Organisms [place] Count 11,000-25,000 MIXC Mixed contaminants. Submit a new specimen if indicated. Normal [facility] Comment on above: Performed By: #### M 100.2200, L7000.1800, L7400.0353 ####[facility] [address] [place], [address] Line Controller Office Visit Reporton 08-13-2024 Line Controller Office Visit Report [facility] [address] [place] [address], [address] [place] [address] OFFICE VISIT Date of Service: 08/13/24 MR#: [id number] Acct: [id number] Name: HATTIE PRO Rep #: [id number] : 2000 Provider: Dr. Josey Cook DO Age/Sex: 23/F [place] [facility] [place]: Signed Intake Vital Signs 05/29/24 15:50 08/13/24 10:45 08/13/24 10:47 Height 5 ft 3 in 5 ft 3 in 5 ft 3 in Weight: 205 lb 2 oz BMI 36.3 BP 113/76 Intake Visit Reasons: NOB: LMP 06/07, TAY 03/14 Barrel Coater Required: No Is patient in pain?: No Allergies No Known Allergies Allergy (Verified 08/13/24 10:45) Medications ???Medication ???Instructions ???Recorded ???Confirmed ???Type multivitamin no.47-iron fum 27 1 cap PO DAILY #90 caps 05/21/22 0 08/13/24 Rx mg-folate no.1 1 mg-dha 300 mg capsule (Virt-PN DHA) calcium carbonate (Calcium Antacid) 400 mg PO ONCE 07/29/24 5 History Last Menstrual Period: 06/07/24 Zika: Zika virus screening: Negative : No PFSH PFSH Medical History Encounter for management of intrauterine contraceptive device (IUD) Abnormal uterine bleeding (AUB) Vaginal delivery Chlamydia infection affecting Rh negative status during Abnormal glucose affecting Environmental allergies Surgical History Hx of appendectomy History of appendectomy Family History Sister Seizures absent sz epilepsy sz Social History adopted: No household members: significant other and children housing: house number of children: 1 service: No current occupational status: unemployed 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 current occupational exposures/hazards: No pets and animals: No history of recent travel: No sexually active: Yes Smoking Status: Former smoker quit date: 11/19/21 Tobacco: How many years used: 6 second hand exposure: No alcohol intake: never substance use type: does not use well-balanced diet: daily or most days caffeine: Yes (1 cup ) Type: coffee what type of physical activity do you participate in: weight training frequency: 3-4 times per week seatbelt use: always do you feel safe at home: No additional social history: , [employer] [facility] residential irasema History 2 Elective abortions Hx Para Spontaneous abortions Hx # Term Pregnancies 1 Ectopic pregnancies Hx # Pregnancies Multiple births # of living children 1 Past Pregnancies Del. Date Name GA/Weeks Outcome Route Bth Weight Gen Labor Lgth Anesthesia Del Locatn Provider FOB 10/27/22 Arabella Cornejo 40 live - full term 8# Female [facility] rcanthony Delivery Date: 10/27/22 Last Updated by: July Hinkle IOL HPI NOB: LMP 06/07, TAY 03/14 Details: HATTIE PRO is a 23 year old who presents for New OB visit. OB Visit TAY Calculator Estimated Delivery Date Method Current WG Current Estimate 03/14/25 LMP (Certain) 9w 4d Other Estimates 03/25/25 Ultrasound #1 8w 0d Comments: HIV: Urine Culture: Sequential Screen: NIPT Screen: Estimated Due Date: 03/14/21 Expected Delivery Route/Plan Labor Preferences- CB/BF classes: [] labor support person: [] labor intervention preferences: [] pain management options preferred: [] cut cord/dad catch: [] : [] PP control planned: [] discussed possible routes of delivery and associated risks: [] special requests: [] Specific Issue/Plans Covid status: [] Flu vaccine: [] Tdap vaccine: [] Rhogam: [] LARC form signed: [] Problem list reviewed and updated with the most current plan of care details and appropriate orders placed. Relevant counseling for the gestational age provided. Continue routine care and follow up unless otherwise noted in visit notes/problem list details Initial Weight: Not Recorded Date -???-???-???-???-??? -???-???-???-???-??? -???-???- EGA Weight BP Urine Prot -???-???-???-???-??? -???-???-???-???-??? -???-???- Glucose FHR FuHt Pres Dilation -???-???-???-???-??? -???-???-???-???-??? -???-???- Effaced St Visit Note 08/13/24 -???-???-???-???-??? -???-???-???-???-??? -???-???- 9w 4d 205 lb 2 oz 113/76 -???-???-???-???-??? -???-???-???-???-??? -???-???- 140 -???-???-???-???-??? -???-???-???-???-??? -???-???- JV- CRL not consistent with LMP. no bleeding, or cramping. CRL consistent with 8 weeks 0 days. no COLETTE. return 2 weeks for NIPT and heart beat check. Menstrual History Last Menstrual Period: 06/07/24 Reported LMP: definite Normal amount/dur (more content not included)... Normal [facility] Gallbladderon 06-02-2024 Gallbladder [facility] [address] [place] [address] Gallbladder MR#: [id number] Acct: [id number] Name: HATTIE PRO Rep #: [id number] : 2000 F 23 From: Justen charles MD PCP: Dr. Carli Copeland MD Status: [facility] Study: Gallbladder Date of Exam: 06/02/24 Exam# [id number] Ordering Dr: Geraldine Lawson PROCEDURE: Right upper quadrant sonogram. REASON FOR EXAM: Right upper quadrant pain. COMPARISON: None FINDINGS: Liver: Mild degree of fatty infiltration. Gallbladder: No stones, sludge, wall thickening or tenderness. Common bile duct: Normal measuring it measures 2.6 cm.. Pancreas: Visualized portions are sonographically unremarkable. Visualized portions of the right kidney are unremarkable. No right upper quadrant ascites. US/Gallbladder IMPRESSION: Mild degree of fatty infiltration of the liver. Reading Location: [place] [address] CC: Dr. Carli Copeland MD; LUCIO Holden Health Policy Analyst: Signed Normal [facility] CBC W/Diff, Automatedon - Absolute Lymph 2.78 X10 3/uL Normal 0.83-4.51 [facility] Comment on above: Performed By: #### L 700.6800, L500.4050, L100.0100, L501.2450 #### [facility] [address] [place], [address] Absolute Neut 4.9 X10 3/uL Normal 2.0-7.7 [facility] Comment on above: Performed By: #### L 700.6800, L500.4050, L100.0100, L501.2450 #### [facility] [address] [place], [address] Basophils/100 WBC (Bld) 0.6 % Normal 0-1 [facility] Comment on above: Performed By: #### L 700.6800, L500.4050, L100.0100, L501.2450 #### [facility] [address] [place], [address] Eosinophils/100 WBC (Bld) 2.4 % Normal 0-5 [facility] Comment on above: Performed By: #### L 700.6800, L500.4050, L100.0100, L501.2450 #### [facility] [address] [place], [address] Erythrocyte distribution width (RBC) [Ratio] 12.9 % Normal 11.6-14.6 [facility] Comment on above: Performed By: #### L 700.6800, L500.4050, L100.0100, L501.2450 #### [facility] [address] [place], [address] Hematocrit (Bld) [Volume fraction] 40.1 % Normal 37-47 [facility] Comment on above: Performed By: #### L 700.6800, L500.4050, L100.0100, L501.2450 #### [facility] [address] [place], [address] Hemoglobin (Bld) [Mass/Vol] 13.2 g/dL Normal 12.0-15.0 [facility] Comment on above: Performed By: #### L 700.6800, L500.4050, L100.0100, L501.2450 #### [facility] [address] [place], [address] IG% 0.200 Normal 0.0-0.9 [facility] Comment on above: Result Comment: IG% - Immature Granulocytes (promyelocytes, myelocytes and metamyelocytes) > 1% indicates that a LEFT SHIFT is Present. Performed By: #### L 700.6800, L500.4050, L100.0100, L501.2450 #### [facility] [address] [place], [address] Lymphocytes/100 WBC (Bld) 31.8 % Normal 19-41 [facility] Comment on above: Performed By: #### L 700.6800, L500.4050, L100.0100, L501.2450 #### [facility] [address] [place], [address] MCH (RBC) [Entitic mass] 27.4 pg Normal 27.0-32.0 [facility] Comment on above: Performed By: #### L 700.6800, L500.4050, L100.0100, L501.2450 #### [facility] [address] [place], [address] MCHC (RBC) [Mass/Vol] 32.9 g/dL Normal 32-36 [facility] Comment on above: Performed By: #### L 700.6800, L500.4050, L100.0100, L501.2450 #### [facility] [address] [place], [address] MCV (RBC) [Entitic vol] 83.4 fL Normal 81-99 [facility] Comment on above: Performed By: #### L 700.6800, L500.4050, L100.0100, L501.2450 #### [facility] [address] [place], [address] Monocytes/100 WBC (Bld) 9.6 % Normal 0-10 [facility] Comment on above: Performed By: #### L 700.6800, L500.4050, L100.0100, L501.2450 #### [facility] [address] [place], [address] Neutrophils/100 WBC (Bld) 55.4 % Normal 47-70 [facility] Comment on above: Performed By: #### L 700.6800, L500.4050, L100.0100, L501.2450 #### [facility] [address] [place], [address] Nucleated RBC (Bld) [#/Vol] 0 10*3/uL Normal 0-5 [facility] Comment on above: Performed By: #### L 700.6800, L500.4050, L100.0100, L501.2450 #### [facility] [address] [place], [address] Platelet mean volume (Bld) [Entitic vol] 9.2 fL Normal 6.2-12.0 [facility] Comment on above: Performed By: #### L 700.6800, L500.4050, L100.0100, L501.2450 #### [facility] [address] [place], [address] Platelets (Bld) [#/Vol] 317 10*3/uL Normal 150-450 [facility] Comment on above: Performed By: #### L 700.6800, L500.4050, L100.0100, L501.2450 #### [facility] [address] [place], [address] RBC (Bld) [#/Vol] 4.81 10*6/uL Normal 4.2-5.4 [facility] Comment on above: Performed By: #### L 700.6800, L500.4050, L100.0100, L501.2450 #### [facility] [address] [place], [address] RDW SD 39.1 fl Normal 35.1-43.9 [facility] Comment on above: Performed By: #### L 700.6800, L500.4050, L100.0100, L501.2450 #### [facility] [address] [place], [address] WBC (Bld) [#/Vol] 8.8 10*3/uL Normal 4.4-11.0 [facility] Comment on above: Performed By: #### L 700.6800, L500.4050, L100.0100, L501.2450 #### [facility] [address] [place], [address] Comprehensive Metabolic Prof ilon 05-29-2024 Albumin [Mass/Vol] 3.9 g/dL Normal 3.2-5.0 [facility] Comment on above: Performed By: #### L 700.6800, L500.4050, L100.0100, L501.2450 #### [facility] [address] [place], [address] Albumin/Globulin [Mass ratio] 1.0 {ratio} Normal 0.9-2.4 [facility] Comment on above: Performed By: #### L 700.6800, L500.4050, L100.0100, L501.2450 #### [facility] [address] [place], [address] ALK P 75 U/L Normal 45-117 [facility] Comment on above: Performed By: #### L 700.6800, L500.4050, L100.0100, L501.2450 #### [facility] [address] [place], [address] ALT [Catalytic activity/Vol] 15 U/L Normal 13-56 [facility] Comment on above: Performed By: #### L 700.6800, L500.4050, L100.0100, L501.2450 #### [facility] [address] [place], [address] AST [Catalytic activity/Vol] 15 U/L Normal 15-37 [facility] Comment on above: Performed By: #### L 700.6800, L500.4050, L100.0100, L501.2450 #### [facility] [address] [place], [address] Bilirubin [Mass/Vol] 0.30 mg/dL Normal 0.20-1.00 [facility] Comment on above: Result Comment: For patients on eltrombopag therapy, use of Dimension [place] TBIL is not recommended. Performed By: #### L 700.6800, L500.4050, L100.0100, L501.2450 #### [facility] [address] [place], [address] BUN/CRE 14.2 RATIO Normal 10-20 [facility] Comment on above: Performed By: #### L 700.6800, L500.4050, L100.0100, L501.2450 #### [facility] [address] [place], [address] CA,Total 9.7 mg/dL Normal 8.5-10.1 [facility] Comment on above: Performed By: #### L 700.6800, L500.4050, L100.0100, L501.2450 #### [facility] [address] [place], [address] Chloride [Moles/Vol] 107 mmol/L Normal 98-107 [facility] Comment on above: Performed By: #### L 700.6800, L500.4050, L100.0100, L501.2450 #### [facility] [address] [place], [address] CO2 [Moles/Vol] 26.0 mmol/L Normal 21.0-32.0 [facility] Comment on above: Performed By: #### L 700.6800, L500.4050, L100.0100, L501.2450 #### [facility] [address] [place], [address] Creatinine [Mass/Vol] 0.70 mg/dL Normal 0.55-1.02 [facility] Comment on above: Result Comment: The validity of the calculated GFR GFRAA in patients over 70 years has not been determined. Clinical correlation is essential. Performed By: #### L 700.6800, L500.4050, L100.0100, L501.2450 #### [facility] [address] [place], [address] ECRCL 135.76 ml/min Normal [facility] Comment on above: Performed By: #### L 700.6800, L500.4050, L100.0100, L501.2450 #### [facility] [address] [place], [address] EST GFR - AA 133 mL/min Normal >60 [facility] Comment on above: Result Comment: Afri can [place] GFR Calc Performed By: #### L 700.6800, L500.4050, L100.0100, L501.2450 #### [facility] [address] [place], [address] GAP 7 Normal 5-15 [facility] Comment on above: Performed By: #### L 700.6800, L500.4050, L100.0100, L501.2450 #### [facility] [address] [place], [address] GFR/1.73 sq M.predicted among non-blacks MDRD (S/P/Bld) [Vol rate/Area] 110 mL/min/{1.73_m2} Normal >60 [facility] Comment on above: Result Comment: Non- GFR Calc Performed By: #### L 700.6800, L500.4050, L100.0100, L501.2450 #### [facility] [address] [place], [address] Globulin (S) [Mass/Vol] 3.9 g/dL Normal 2.2-4.2 [facility] Comment on above: Performed By: #### L 700.6800, L500.4050, L100.0100, L501.2450 #### [facility] [address] [place], [address] Glucose [Mass/Vol] 113 mg/dL High 74-106 [facility] Comment on above: Result Comment: Fast ing Glucose result from 100 to 125 mg/dL suggests IMPAIRED HOMEOSTASIS per A.D.A. criteria. Performed By: #### L 700.6800, L500.4050, L100.0100, L501.2450 #### [facility] [address] [place], [address] Potassium [Moles/Vol] 3.7 mmol/L Normal 3.5-5.1 [facility] Comment on above: Performed By: #### L 700.6800, L500.4050, L100.0100, L501.2450 #### [facility] [address] [place], [address] Sodium [Moles/Vol] 140 mmol/L Normal 136-145 [facility] Comment on above: Performed By: #### L 700.6800, L500.4050, L100.0100, L501.2450 #### [facility] [address] [place], [address] T PROT 7.8 g/dL Normal 6.4-8.2 [facility] Comment on above: Performed By: #### L 700.6800, L500.4050, L100.0100, L501.2450 #### [facility] [address] [place], [address] Urea nitrogen [Mass/Vol] 10 mg/dL Normal 7-18 [facility] Comment on above: Performed By: #### L 700.6800, L500.4050, L100.0100, L501.2450 #### [facility] [address] [place], [address] Emergency Department Summary on 05-29-2024 Emergency Department Summary [facility] Medical Records Department [address] [place] [address] Emergency Department Summary 05/29/24 MR#: [id number] Acct: [id number] Name: HATTIE PRO Rep #: [id number] : 2000 23 From: Geraldine VALDES PCP: Dr. Carli Dinorah, MD Status:DEP ER Location: ED HPI HPI - GI History of Present Illness Chief Complaint: Abd Pain Narrative Narrative: Patient presenting today with right upper quadrant abdominal pain she has had over the past week and a half. She reports that the pain has been intermittent except over the past 3 days it has been more constant. She does feel it is sometimes worse after eating. She did eat Chipotle about 3 hours ago and her pain is now worse. She has had occasional nausea. She denies fevers, chills, vomiting, diarrhea, and urinary symptoms. She reports that she is currently trying to get . Previous abdominal surgery includes appendectomy. [facility] Medical History Vaginal delivery Chlamydia infection affecting Rh negative status during Abnormal glucose affecting Environmental allergies Home Medications ???Medication ???Instructions ???Recorded ???Last Taken ???Type multivitamin no.47-iron fum 27 1 cap PO DAILY #90 caps 05/21/22 U nknown Rx mg-folate no.1 1 mg-dha 300 mg capsule (Virt-PN DHA) Allergy/AdvReac Type Severity Reaction Status Date / Time No Known Allergies Allergy Verified 05/29/24 16:41 Family History Sister Seizures absent sz epilepsy sz Surgical History Hx of appendectomy History of appendectomy Social History adopted: No household members: significant other housing: house current occupational status: unemployed current occupational exposures/hazards: No pets and animals: No history of recent travel: No sexually active: Yes Smoking Status: Former smoker quit date: 11/19/21 Tobacco: How many years used: 6 second hand exposure: No alcohol intake: never substance use type: does not use well-balanced diet: daily or most days caffeine: Yes (1 cup ) Type: coffee seatbelt use: always do you feel safe at home: No additional social history: fianc??? - Maicol MOYER ROS ED Constitutional Constitutional ED: Denies chills or fever(s) Cardiovascular Cardiovascular: Denies chest pain Respiratory/Chest Respiratory/Chest: Denies cough or dyspnea Gastrointestinal Gastrointestinal: Reports abdominal pain and nausea; Denies constipation, diarrhea or vomiting Genitourinary Genitourinary ED: Denies dysuria, hematuria or urinary urgency Musculoskeletal Musculoskeletal: Denies arthralgias or myalgias Integumentary Denies rash Neurologic Neurologic: Denies weakness EXAM Physical Exam Const Vital Signs: 05/29/24 15:50 05/29/24 18:15 05/29/24 18:28 Temperature 97.8 F 97.8 F Temperature Source Oral Pulse Rate 86 64 64 Respiratory Rate 16 16 16 Blood Pressure 143/72 H 116/61 116/61 Blood Pressure Mean 95 79 79 Pulse Ox 99 99 99 Oxygen Delivery Method Room Air Room Air Positive well nourished, well developed and no apparent distress General Appearance ED: well developed HEENT Reports normocephalic and head/scalp atraumatic Mouth ED: Yes moist mucous membranes normal Eyes PERRL and EOMs intact bilaterally Neck full ROM and supple Chest Wall inspection of chest normal Resp normal respiratory effort and clear to auscultation bilaterally Cardio regular rate and regular rhythm GI soft to palpation, non-distended and no masses GI Narrative: Tenderness to the right upper quadrant with a positive Patino sign. Otherwise abdomen is soft and nontender. Back/Spine normal ROM and normal to inspection Extremity normal to inspection and full ROM Neuro oriented x3, CN's II-XII intact bilaterally, moves all extremities, no focal motor deficits and no sensory deficits noted Sensorium / Orientation: awake and alert Psych mental status grossly normal and thought process normal Skin no rashes or lesions noted and no wounds Physical Exam Const Vital Signs: 05/29/24 15:50 05/29/24 18:15 05/29/24 18:28 Temperature 97.8 F 97.8 F Temperature Source Oral Pulse Rate 86 64 64 Respiratory Rate 16 16 16 Blood Pressure 143/72 H 116/61 116/61 Blood Pressure Mean 95 79 79 Pulse Ox 99 99 99 Oxygen Delivery Method Room Air Room Air MDM MDM MDM Narrative Medical decision making narrative: Patient presenting with right upper quadrant abdominal pain she has had over t (more content not included)... Normal [facility] Lipaseon 05-29-2024 Lipase [Catalytic activity/Vol] 26 U/L Low 73-393 [facility] Comment on above: Performed By: #### L 700.6800, L500.4050, L100.0100, L501.2450 ####[facility] [address] [place], [address] ,Serum,hCG Quali.on 05-29-2024 HCG, SERUM QUAL Negative Normal [facility] Comment on above: Performed By: #### L 700.6800, L500.4050, L100.0100, L501.2450 #### [facility] [address] [place], [address] Urinalysis, Completeon 05-29 BACTERIA RARE Normal None Seen [facility] Comment on above: Order Comment: CLEAN CATCH Performed By: #### L 400.0001 #### [facility] [address] [place], [address] RBC 0-5 SEEN Normal 0-5 [facility] Comment on above: Order Comment: CLEAN CATCH Performed By: #### L 400.0001 #### [facility] [address] [place], [address] WBC 5-10 SEEN Normal 0-5 [facility] Comment on above: Order Comment: CLEAN CATCH Performed By: #### L 400.0001 #### [facility] [address] [place], [address] EPI,SQUAMOUS 5-10 SEEN Normal 5-10 [facility] Comment on above: Order Comment: CLEAN CATCH Performed By: #### L 400.0001 #### [facility] [address] [place], [address] AMORPHOUS 1+ PHOS Normal [facility] Comment on above: Order Comment: CLEAN CATCH Performed By: #### L 400.0001 #### [facility] [address] [place], [address] Mucus Ql (Urine sed) 0 SEEN Normal [facility] Comment on above: Order Comment: CLEAN CATCH Performed By: #### L 400.0001 #### [facility] [address] [place], [address] Nicolas 12-14-2020 LAZARON Telephone ([facility]) HATTIE TERAN ([id number]) 2 F Date Time Provider Department 12/14/20 ODETTE WEISS CLARISA During your visit today, we recorded the following information about you: All Christianson 12/14/2020 6:37 PM Signed ----- Message from Odette Weiss APRN.AMERICANIZATION TEACHER sent at 12/14/2020 6:58 AM EDT ----- Please advise Hattie the COVID19 test was negative. Odette Weiss APRN.LAZARO Christianson 12/14/2020 6:38 PM Signed viewed in [employer]. All Christianson Allergies As of Date: 12/14/2020 Noted Allergy Reaction enviromental [Other] 04/25/2010 14 - Other: See Comments Comments: sneezing Date Reviewed: 12/13/2020 Reviewed by: aLnie Florentino Ma - Fully Assessed Reason for Visit: Results [95] Prescriptions as of 12/14/2020 - Brompheniramine-Pseu doeph-DM (BROMFED DM) 2-30-10 mg/5 mL syrup Take 5 mL by mouth four times daily as needed. - mupirocin (BACTROBAN) 2 % ointment Apply 1 application to affected area three times daily. APPLY TO AFFECTED AREA Problem List As Of Date 12/14/2020 Noted Resolved ODD (oppositional defiant disorder) [F91.3] 07/15/2013 ADHD (attention deficit hyperactivity disorder)*07/15/2013 Encounter Status:Closed by ALL CHRISTIANSON on 12/14/20 Normal [facility] CNOVon 12-13-2020 CNOV Office Visit ([facility]) HATTIE TERAN ([id number]) 2 F Date Time Provider Department 12/13/20 10:00 AM PAULINO JACKSON WS During your visit today, we recorded the following information about you: Temperature Pulse Respiration Blood pressure 98.7 degrees 78/minute 16/minute 112/74 Weight 61.4 kg Paulino Jackson APRN.CNP 12/13/2020 2:16 PM Signed Subjective HPI HPI Hattie Teran is a 19 year old female who [...] - LAPAROSCOPIC APPENDICOSTOMY ALLERGIES Enviromental [Other] MEDICATIONS Brompheniramine-Pseu doeph-DM (BROMFED DM) 2-30-10 mg/5 mL syrup Take [...] rest - 2019 CORONAVIRUS Agrees to plan Paulino Jackson APRN.LAZARO Jackson APRN.LAZARO 12/13/2020 10:23 AM Signed How to Manage Common Symptoms Associated with COVID for Adults Fever- Fever is a temperature over 100.4 F and can occur when the body is fighting an infection. To help treat a fever: - Drink plenty of fluids and stay well hydrated. - Eat small amounts of easy to digest food. - Rest. Your body needs rest to recover, but getting up and moving around the house frequently is a good idea. You should try to continue doing your normal daily activities (bathing, toileting, grooming, cooking), though you will probably feel tired, and need to rest often. - Avoid any heavy activity or exercise, as this will increase your body temperature. - Dress in light clothing and stay covered in a light sheet. Keep the room temperature cool. - Take a slightly warm (not cold or cool) bath, or apply damp washcloths to the forehead and wrists. Cough- Cough is a common symptom associated with COVID and can be bothersome. To help treat a cough: - Stay well hydrated. Try warm water or tea with lemon and/or honey to help soothe the cough. - Use a humidifier to add moisture to the air. - Try a product with menthol, like a cough drop or a rub for your chest such as Vicks, which can help reduce cough. - Try cough drops. - Avoid smoking and other strong odors or perfumes. - Try breathing exercises to keep your lungs open an (more content not included)... Normal [facility] Coronavirus 2019on 1 SARS-CoV-2 (COVID-19) RNA TORREY+probe Ql (Unsp spec) UPPER RESPIRATORY TRACT SWAB Normal [facility] Comment on above: Performed By: #### C OVID #### [facility] [address] [address] SARS-CoV-2 (COVID-19) RNA TORREY+probe Ql (Unsp spec) Negative for COVID19 (SARS CoV2) by RT-PCR or equivalent method. Normal Negative for COVID19 (SARS CoV2) by RT-PCR or equivalent method. [facility] Comment on above: Result Comment: This test was developed and its performance characteristics determined by [facility] [place]. This test has been authorized by FDA under an Emergency Use Authorization (EUA). This test has been validated in accordance with the FDA's Guidance Document Policy for Diagnostics Testing in Laboratories Certified to Perform High Complexity Testing under CLIA prior to Emergency use Authorization for Coronavirus Disease 2019 during the Public Health Emergency issued on June 19, 2019. Test performed by [facility], [facility] Pathology and Laboratory Medicine [place], [address] [place] [address]. Performed By: #### C OVID #### [facility] [address] [place], [place] [address] CTPCRon 11-17-2020 C. trachomatis Interp Normal See CT Interp N [facility] ([place]) Comment on above: Result Comment: C. t rachomatis DNA not detected. Specimen is presumptive negative for C. trachomatis. A negative result does not preclude C. trachomatis infection because results depend on adequate specimen collection, absence of inhibitors, and sufficient DNA to be detected. See CT Interp N Performed By: #### C TPCR, NGPCR1 #### [address] [address] C.trachomatis PCR Negative Normal Negative [facility] ([place]) Comment on above: Result Comment: Mole cular (PCR) assay performed on the Adia Paula 4800 system. Transport tube received with two swabs. Review collection procedure. Inappropriate collection may cause aberrant results. Performed By: #### C TPCR, NGPCR1 #### [address] [address] Chlam Source Cervix Normal [facility] ([place]) Comment on above: Performed By: #### C TPCR, NGPCR1 #### [address] [address] [id number] 11-17-2020 GC PCR Source Cervix Normal [facility] ([place]) Comment on above: Performed By: #### C TPCR, NGPCR1 #### [address] [address] N. gonorrhoeae (PCR) Negative Normal Negative [facility] ([place]) Comment on above: Result Comment: Mole cular (PCR) assay performed on the [employer]ia Paula 4800 System. Transport tube received with two swabs. Review collection procedure. Inappropriate collection may cause aberrant results. Performed By: #### C TPCR, NGPCR1 #### [address] [address] N. gonorrhoeae Interp Normal See NG Interp N [facility] ([place]) Comment on above: Result Comment: N. g onorrhoeae DNA not detected. Specimen is presumptive negative for N. gonorrhoeae. A negative result does not preclude Neisseria gonorrhoeae infection because results depend on adequate specimen collection, absence of inhibitors, and sufficient DNA to be detected. See NG Interp N Performed By: #### C TPCR, NGPCR1 #### [place] [address] .Urinalysis Microscopic (AO) on 11-16-2020 UA Bacteria 1+ /hpf Abnormal [facility] ([place]) Comment on above: Performed By: #### U A, PREGU, UAMICAO #### [address] [address] UA RBC 0-5 Abnormal None Seen [facility] ([place]) Comment on above: Performed By: #### U A, PREGU, UAMICAO #### [address] [address] UA Squam Epithelial 0-5 Abnormal None Seen [facility] ([place]) Comment on above: Performed By: #### U A, PREGU, UAMICAO #### [address] [address] UA WBC LOADED Abnormal None Seen [facility] ([place]) Comment on above: Performed By: #### U A, PREGU, UAMICAO #### [address] [address] PREGUon 11-16-2020 HCG ( test) Ql (U) Negative Normal [facility] ([place]) Comment on above: Performed By: #### U A, PREGU, UAMICAO #### [address] [address] test (u) int Not detected Invalid Interpretation Code [facility] ([place]) Comment on above: Performed By: #### U A, PREGU, UAMICAO #### [address] [address] UAon 11-16-2020 Color (U) Yellow Normal [facility] ([place]) Comment on above: Performed By: #### U A, PREGU, UAMICAO #### [address] [address] Glucose (U) [Mass/Vol] Negative Normal Negative [facility] ([place]) Comment on above: Performed By: #### U A, PREGU, UAMICAO #### [address] [address] Ketones Ql (U) Negative Normal Negative [facility] ([place]) Comment on above: Performed By: #### U A, PREGU, UAMICAO #### [address] [address] UA Appear Slightly Cloudy Abnormal Clear [facility] ([place]) Comment on above: Performed By: #### U A, PREGU, UAMICAO #### [address] [address] UA Blood Large Abnormal Negative [facility] ([place]) Comment on above: Performed By: #### U A, PREGU, UAMICAO #### [place] [address] UA Leuk Est Small Abnormal Negative [facility] ([place]) Comment on above: Performed By: #### U A, PREGU, UAMICAO #### [address] [address] UA Nitrite Negative Normal Negative [facility] ([place]) Comment on above: Performed By: #### U A, PREGU, UAMICAO #### [address] [address] UA pH 8.5 Abnormal 5.0 - 8.0 [facility] ([place]) Comment on above: Performed By: #### U A, PREGU, UAMICAO #### [address] [address] UA Protein 100 mg/dL Abnormal Negative [facility] ([place]) Comment on above: Performed By: #### U A, PREGU, UAMICAO #### [address] [address] UA Spec Grav 1.025 Normal 1.015-1.025 [facility] ([place]) Comment on above: Performed By: #### U A, PREGU, UAMICAO #### [address] [address] UA Specimen Type Clean Catch Normal [facility] ([place]) Comment on above: Performed By: #### U A, PREGU, UAMICAO #### [address] [address] UA Urobilinogen 0.2 E.U./dL Normal 0.2-1.0 [facility] ([place]) Comment on above: Performed By: #### U A, PREGU, UAMICAO #### [address] [address] Urobilinogen (U) [Mass/Vol] Negative Normal Negative [facility] ([place]) Comment on above: Performed By: #### U A, PREGU, UAMICAO #### [address] [address] Encounters Encounter Date Encounter Type Care Provider Facility Start: 03-03-2025 ambulatory No Primary Car e Physician Facility:[facility] Start: 03-01-2025 ambulatory No Primary Car e Physician Facility:[facility] Start: 02-28-2025 ambulatory No Primary Car e Physician Facility:[facility] Start: 02-28-2025 End: 02-28-2025 ambulatory No Primary Care Physician Facility:[facility] Start: 02-24-2025 End: 02-24-2025 ambulatory No Primary Care Physician Facility:[facility] Start: 02-21-2025 End: 02-21-2025 ambulatory No Primary Care Physician Facility:[facility] Start: 02-17-2025 End: 02-17-2025 ambulatory No Primary Care Physician [facility] Start: 02-15-2025 Encounter for genera l adult medical examination without abnormal findings Isatu Dalywilfredo [facility] Start: 02-14-2025 End: 02-14-2025 ambulatory No Primary Care Physician Facility:[facility] Start: 02-10-2025 End: 02-10-2025 ambulatory No Primary Care Physician Facility:[facility] Start: 02-07-2025 End: 02-07-2025 ambulatory No Primary Care Physician Facility:[facility] Start: 02-07-2025 End: 02-07-2025 ambulatory No Primary Care Physician Facility:[facility] Start: 02-03-2025 End: 02-03-2025 ambulatory No Primary Care Physician [facility] Start: 01-31-2025 End: 01-31-2025 ambulatory Isatu Liu Facility:[facility] Start: 01-31-2025 End: 01-31-2025 ambulatory Josey Munson Facility:[facility] Start: 01-28-2025 End: 01-28-2025 ambulatory No Primary Care Physician Facility:[facility] Start: 01-17-2025 End: 01-17-2025 ambulatory No Primary Care Physician Facility:[facility] Start: 12-31-2024 End: 12-31-2024 ambulatory No Primary Care Physician Facility:[facility] Start: 12-16-2024 End: 12-16-2024 ambulatory China Ribeiro NP Facility:[facility] Start: 11-19-2024 End: 11-19-2024 ambulatory Isatu Liu Facility:[facility] Start: 10-28-2024 End: 10-28-2024 ambulatory [facility] Start: 10-08-2024 End: 10-08-2024 ambulatory No Primary Care Physician [facility] Start: 09-10-2024 End: 09-10-2024 ambulatory No Primary Care Physician [place] [place]: 08-30-2024 End: 08-30-2024 ambulatory Josey Munson Facility:[facility] Start: 08-26-2024 End: 08-26-2024 ambulatory No Primary Care Physician [facility] Start: 08-13-2024 End: 08-13-2024 ambulatory No Primary Care Physician Facility:[facility] Start: 08-13-2024 End: 08-13-2024 ambulatory Josey Munson Facility:[facility] Start: 06-02-2024 End: 06-02-2024 ambulatory No Primary Care Physician Facility:[facility] Start: 05-29-2024 End: 05-29-2024 Emergency department patient visit Juve Ribera Facility:[facility] Start: 05-13-2022 End: 05-13-2022 Subsequent hospital visit by physician Nandini Herzog MD Work Phone: [facility] Comment on above: Attention deficit hy peractivity disorder (ADHD), unspecified ADHD type; Oppositional defiant disorder; Family history of chromosomal microdeletion; Family history of blindness; Family history of genetic disorder Plan of Treatment Date Care Activity Detail Author Start: 06-09-2023 Tetanus Diphtheria a nd Pertussis Vaccines (7 - Td or Tdap) Tetanus Diphtheria and Pertussis Vaccines (7 - Td or Tdap) [facility] Start: 05-30-2022 End: 05-30-2022 Professional / ancillary services management 05/30/2022 Ancillary Procedure Visit [facility] Start: 12-20-2021 FLU (#1) FLU (#1) [facility] Start: 06-20-2021 Well Visit Well Visit [facility] Start: 03-18-2019 Hepatitis A (2 of 2 - 2-dose series) Hepatitis A (2 of 2 - 2-dose series) [facility] Start: 2017 MenB (1 of 2 - MenB 2-Dose Series Bexsero) MenB (1 of 2 - MenB 2-Dose Series Bexsero) [facility] Start: 01-21-2007 Varicella (2 of 2 - 2-dose childhood series) Varicella (2 of 2 - 2-dose childhood series) [facility] Start: 06-23-2002 COVID-19 (#1) COVID-19 (#1) [facility] End: 05-13-2022 Genetic Sendout: 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) [facility] Work Phone: Comment on above: 1 Occurrences starti ng 05/13/2022 until 05/13/2022 Immunizations Immunization Date Immunization Notes Care Provider Fa cility 09-15-2018 hepatitis A vaccine, pediatric/adolescent dosage, 2 dose schedule Nandini Herzog MD Work Phone: [facility] 09-15-2018 meningococcal polysaccharide (groups A, C, Y and W-135) diphtheria toxoid conjugate vaccine (MCV4P) Nandini Herzog MD Work Phone: [facility] 02-04-2014 Influenza Quadrivale nt (PF) Nandini Herzog MD Work Phone: [facility] 10-07-2013 human papilloma viru s vaccine, quadrivalent Nandini Herzog MD Work Phone: [facility] 06-09-2013 human papilloma viru s vaccine, quadrivalent Nandini Herzog MD Work Phone: [facility] 06-09-2013 meningococcal polysaccharide (groups A, C, Y and W-135) diphtheria toxoid conjugate vaccine (MCV4P) Nandini Herzog MD Work Phone: [facility] 06-09-2013 tetanus toxoid, redu maite diphtheria toxoid, and acellular pertussis vaccine, adsorbed Nandini Herzog MD Work Phone: [facility] 04-07-2013 human papilloma viru s vaccine, quadrivalent Nandini Herzog MD Work Phone: [facility] 04-07-2013 influenza virus vacc ine, unspecified formulation Nandini Herzog MD Work Phone: [facility] 03-13-2012 influenza virus vacc ine, unspecified formulation Nandini Herzog MD Work Phone: [facility] 03-08-2011 influenza virus vacc ine, unspecified formulation Nandini Herzog MD Work Phone: [facility] 2006 diphtheria, tetanus toxoids and acellular pertussis vaccine Nandini Herzog MD Work Phone: [facility] 2006 measles, mumps and rubella virus vaccine Nandini Herzog MD Work Phone: [facility] 2006 poliovirus vaccine, inactivated Nandini Herzog MD Work Phone: [facility] 07-04-2003 diphtheria, tetanus toxoids and acellular pertussis vaccine Nandini Herzog MD Work Phone: [facility] 12-29-2002 haemophilus influenz ae type b vaccine, PRP-T conjugate Nandini Herzog MD Work Phone: [facility] 12-29-2002 measles, mumps and rubella virus vaccine Nandini Herzog MD Work Phone: [facility] 12-29-2002 pneumococcal conjuga te vaccine, 7 valent Nandini Herzog MD Work Phone: [facility] 12-29-2002 varicella virus vaccine Ayana Herzog MD Work Phone: [facility] 07-21-2002 diphtheria, tetanus toxoids and acellular pertussis vaccine Nandini Herzog MD Work Phone: [facility] 07-21-2002 haemophilus influenz ae type b vaccine, PRP-T conjugate Nandini Herzog MD Work Phone: [facility] 07-21-2002 hepatitis B vaccine, pediatric or pediatric/adolescent dosage Nandini Herzog MD Work Phone: [facility] 07-21-2002 pneumococcal conjuga te vaccine, 7 valent Nandini Herzog MD Work Phone: [facility] 07-21-2002 poliovirus vaccine, inactivated Nandini Herzog MD Work Phone: [facility] 05-19-2002 diphtheria, tetanus toxoids and acellular pertussis vaccine Nandini Herzog MD Work Phone: [facility] 05-19-2002 haemophilus influenz ae type b vaccine, PRP-T conjugate Nandini Herzog MD Work Phone: [facility] 05-19-2002 pneumococcal conjuga te vaccine, 7 valent Nandini Herzog MD Work Phone: [facility] 05-19-2002 poliovirus vaccine, inactivated Nandini Herzog MD Work Phone: [facility] 02-22-2002 diphtheria, tetanus toxoids and acellular pertussis vaccine Nandini Herzog MD Work Phone: [facility] 02-22-2002 haemophilus influenz ae type b vaccine, PRP-T conjugate Nandini Herzog MD Work Phone: [facility] 02-22-2002 hepatitis B vaccine, pediatric or pediatric/adolescent dosage Nandini Herzog MD Work Phone: [facility] 02-22-2002 pneumococcal conjuga te vaccine, 7 valent Nandini Herzog MD Work Phone: [facility] 02-22-2002 poliovirus vaccine, inactivated Nandini Herzog MD Work Phone: [facility] 2001 hepatitis B vaccine, pediatric or pediatric/adolescent dosage Nandini Herzog MD Work Phone: [facility] Payers Date Payer Category Payer [employer] ( [employer] others) [id number] 2024 [employer] ( [employer] others) [id number] 2024 Self-pay 2024 Unknown [id number] 2024 Unknown [id number] 2014 Unknown [id number] 1.315 Unknown [id number] 2.16.840.1.636595.3.579.2.462 Unknown [id number] 2.840.1.296870.3.579.2.462 Unknown [id number] 2.16.840.1.580458.3.579.2.462 Unknown [id number] 2.16.840.1.920828.3.579.2.462 Unknown [id number] 2.16.840.1.270214.3.579.2.462 Unknown [id number] 2.16.840.1.001683.3.579.2.462 Unknown [id number] 2.16.840.1.104580.3.579.2.462 Unknown [id number] 2.16.840.1.042559.3.579.2.462 Unknown [id number] 2.16.840.1.097762.3.579.2.462 Unknown [id number] 2.16840.1.765464.3.579.2.462 Unknown [id number] 2.16.840.1.157934.3.579.2.462 Unknown [id number] 2.16.840.1.280432.3.579.2.462 Unknown [id number] 2.16840.1.391481.3.579.2.462 Unknown [id number] 2.840.1.623578.3.579.2.462 Unknown [id number] 2.840.1.055956.3.579.2.462 Unknown [id number] 2.840.1.789394.3.579.2.462 Unknown [id number] 2.840.1.958433.3.579.2.462 Unknown [id number] 2.840.1.185636.3.579.2.462 Unknown [id number] 2.840.1.461947.3.579.2.462 Unknown [id number] 2.840.1.907553.3.579.2.462 Unknown [id number] 2.840.1.704294.3.579.2.462 Unknown [id number] 2.840.1.580965.3.579.2.462 Unknown [id number] 2.840.1.424075.3.579.2.462 Unknown [id number] 2.840.1.612813.3.579.2.462 Unknown [id number] 2.840.1.727601.3.579.2.462 Unknown [id number] 2.16840.1.135644.3.579.2.462 Unknown [id number] 2.16840.1.939804.3.579.2.462 Unknown [id number] 2.16.840.1.241762.3.579.2.462 Social History Date Type Detail Facility [facility]: [facility] Start: 05-13-2022 Tobacco use and exposure Smokeless tobacco non-user [facility] Start: 05-13-2022 Alcohol intake Not Asked [facility] Start: 05-13-2022 Alcohol intake [facility] Start: 2001 Sex Assigned At Not on file A [facility] Progress note 12-13-2020 Note Date & Type Note Facility 12-13-2020 Note HNO ID: [id number] Author: Paulino Jackson APRN.[employer] Service: ? Author Type: Nurse Practitioner Type: Progress Notes Filed: 12/13/2020 2:16 PM Note Text: Subjective HPI HPI Hattie Teran is a 19 year old female who [...] - LAPAROSCOPIC APPENDICOSTOMY ALLERGIES Enviromental [Other] MEDICATIONS Cmothnchcwshmpl-Onzpjrfno-XD (BROMFED DM) 2-30-10 mg/5 mL syrup Take [...] rest - 2019 CORONAVIRUS Agrees to plan Paulino Jackson APRN.[facility] Clinical Note 11-18-2020 Note Date & [...] Locations *1: This test was performed at: [address], [address] [place] [address] ([place]) Comment on above: Performed By: #### C UR #### [place] [address] Clinical Note 11-17-2020 Note Date & Type [...] Locations *1: This test was performed at: [address], [address] [place] [address] ([place]) Comment on above: Performed By: #### A FFIRM #### [place] [address] Evaluation note Note Date & Type Note Facility Evaluation note Diagnosis Attention deficit hyperactivity disorder (ADHD), unspecified ADHD type Oppositional defiant disorder Oppositional defiant disorder of childhood or adolescence Family history of chromosomal microdeletion Family history of blindness Family history of blindness or visual loss Family history of genetic disorder Family history of other condition documented in this encounter [facility] Summary Purpose Family History No Family History Records FoundNo Family History Records FoundNo Family History Records FoundNo Family History Records Found Advance Directives No Advanced Directives Records FoundNo Advanced Directives Records FoundNo Advanced Directives Records FoundNo Advanced Directives Records Found Reason for Referral Specialty Diagnoses / Procedures Referred By Contac t Referred To Contact Lab Diagnoses Family history of blindness Family history of genetic disorder Procedures 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 [place] [address] Referral ID Status Reason Start Date Expiration Date V isits Requested Visits Authorized [id number] [facility] Required 05/13/2022 05/13/2023 1 1 Specialty Diagnoses / Procedures Referred By Contac t Referred To Contact Lab Diagnoses Attention deficit hyperactivity disorder (ADHD), unspecified ADHD type Oppositional defiant disorder Family history of chromosomal microdeletion Family history of blindness Family history of genetic disorder Procedures Genetic Sendout: 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) [place] [address] Referral ID Status Reason Start Date Expiration Date V isits Requested Visits Authorized [id number] [facility] Required 05/13/2022 05/13/2023 1 1 Additional Source Comments INFORMATION SOURCE (unrecogn ized section and content) DATE CREATED AUTHOR 11/18/2020 [facility]) DATE CREATED AUTHOR AUTHOR'S ORGANIZ ATION 05/14/2021 [facility] DATE CREATED AUTHOR AUTHOR'S ORGANIZ ATION 11/01/2024 [facility] DATE CREATED AUTHOR AUTHOR'S ORGANIZ ATION 03/02/2025 [facility] Reason for Visit (unrecogniz ed section and content) Specialty Diagnoses / Procedures Referred By Contac t Referred To Contact Lab Diagnoses Family history of blindness Family history of genetic disorder Procedures 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 [employer] provides no warranty or guarantee of the accuracy or completeness of information in this document.
[2025-03-21 13:59] LABS: Syphilis Antibodies Nonreactive (Nonreactive)
[2025-03-21] MEDS: 0.9% Saline Lock 10 ML Syringe IV (14:17)
--- NOTE | 2025-03-21 15:30 | HP.PCM.OB_ITS ---
HPI - General General Date of Admission: 03/21/25 HPI Narrative HATTIE PRO, is a 24 F who presents [ ] Maternal Data Information TAY Calculator Estimated Delivery Date Method Current WG Current Estimate 03/25/25 Ultrasound #1 39w 3d Other Estimates 03/14/25 LMP (Certain) 41w 0d 03/28/25 Ultrasound #2 39w 0d PFSH PFSH Medical History Encounter for management of intrauterine contraceptive device (IUD) Abnormal uterine bleeding (AUB) Vaginal delivery Chlamydia infection affecting Rh negative status during Abnormal glucose affecting Environmental allergies Home Medications ?Medication ?Instructions ?Recorded ?Last Taken ?Type multivitamin no.47-iron fum 27 1 cap PO DAILY #90 caps 05/21/22 03/14/25 08:00 Rx mg-folate no.1 1 mg-dha 300 mg 1 cap capsule (Virt-PN DHA) calcium carbonate (Calcium Antacid) 400 mg PO ONCE 02/1203/14/25 08:00 History 400 mg blood sugar diagnostic (Accu-Chek #100 ea 12/31/24 Unk nown Rx Guide test strips) blood-glucose meter #1 ea 12/31/24 Unknown Rx lancets 28 gauge (CareTouch Safety #100 ea 12/31/24 Un known Rx Lancets) blood sugar diagnostic #100 ea 01/17/25 Unknown Rx blood-glucose meter #1 ea 01/17/25 Unknown Rx metformin 500 mg tablet 500 mg PO QDAY #30 tabs 01/1903/13/25 22:00 Rx 500 mg Allergy/AdvReac Type Severity Reaction Status Date / Time No Known Allergies Allergy Verified 03/21/25 09:29 Family History Sister Seizures absent sz epilepsy sz Surgical History Hx of appendectomy History of appendectomy Social History adopted: No household members: significant other and children housing: house number of children: 1 current occupational status: unemployed 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 current occupational exposures/hazards: No pets and animals: No history of recent travel: No sexually active: Yes Smoking Status: Former smoker quit date: 11/19/21 Tobacco: How many years used: 6 second hand exposure: No alcohol intake: never substance use type: does not use well-balanced diet: daily or most days caffeine: Yes (1 cup ) Type: coffee what type of physical activity do you participate in: weight training frequency: 3-4 times per week seatbelt use: always do you feel safe at home: No additional social history: , Maicol JL residential irasema History 2 Elective abortions Hx Para Spontaneous abortions Hx # Term Pregnancies 1 Ectopic pregnancies Hx # Pregnancies Multiple births # of living children 1 Past Pregnancies Del. Date Name GA/Weeks Outcome Route Bth Weight Gen Labor Lgth Anesthesia Del Locatn Provider FOB 10/27/22 Arabella Cornejo 40 live - full term 8# Female [facility] Marcanthony Delivery Date: 10/27/22 Last Updated by: July Hinkle IOL Visit Details Expected Delivery Route/Plan Labor Preferences- CB/BF classes: [] labor support person: Maicol labor intervention preferences: [] pain management options preferred: limited intervention cut cord/dad catch: yes : yes PP control planned: [] discussed possible routes of delivery and associated risks: [] special requests: [] Plans Covid status: [] Flu vaccine: declined Tdap vaccine: declined Rhogam: declined bneg LARC form signed: yes movement and labor precautions reviewed. Problem list reviewed and updated with the most current plan of care details and appropriate orders placed. Relevant counseling for the gestational age provided. Continue routine care and follow up unless otherwise noted in visit notes/problem list details OB Flowsheet Initial Weight: Not Recorded Date -?-?-?-?-?-?-?-?-?-?-?-?- EGA Weight BP Urine Prot -?-?-?-?-?-?-?-?-?-?-?-?- Glucose FHR FuHt Pres Dilation -?-?-?-?-?-?-?-?-?-?-?-?- Effaced St Visit Note 08/13/24 -?-?-?-?-?-?-?-?-?-?-?-?- 8w 0d 205 lb 2 oz 113/76 -?-?-?-?-?-?-?-?-?-?-?-?- 140 -?-?-?-?-?-?-?-?-?-?-?-?- JV- CRL not cons istent with LMP. no bleeding, or cramping. CRL consistent with 8 weeks 0 days. no COLETTE. return 2 weeks for NIPT and heart beat check. 08/26/24 -?-?-?-?-?-?-?-?-?-?-?-?- 9w 6d 205 lb 127/76 Negative -?-?-?-?-?-?-?-?-?-?-?-?- Negative 170 -?-?-?-?-?-?-?-?-?-?-?-?- KW- no vb/crampi ng. measuring 9.3 weeks today on vaginal US KW- no vb/cramping. measurin g 9.3 weeks today on vaginal US. will come back for labs. anatomy US ordered 09/10/24 -?--?-?-?-?-?-?-?-?-?-?-?- 12w 0d 201 lb 6 oz 120/76 Nega tive -?-?-?-?-?-?-?-?-?-?-?-?- Negative 166 -?-?-?-?-?-?-?-?-?-?-?-?- KW- no vb/crampi ng. FHT and movement on US today. anatomy US scheduled. 10/08/24 -?-?-?-?-?-?-?-?-?-?-?-?- 16w 0d 197 lb 108/64 Negative -?-?-?-?-?-?-?-?-?-?-?-?- Negative 150 -?-?-?-?-?-?-?-?-?-?-?-?- KW-no vb/crampin g. + flutters. MFM scan scheduled. AFP declined 11/19/24 -?-?-?-?-?-?-?-?-?-?-?-?- 22w 0d 194 lb 2 oz 105/60 Trac e -?-?-?-?-?-?-?-?-?-?-?-?- Negative 150 -?-?-?-?-?-?-?-?-?-?-?-?- SM- no vb lof go od fm no regular ctx discussed gct testing and patient delcining but discussed options 12/16/24 -?-?-?-?-?-?-?-?-?-?-?-?- 25w 6d 195 lb 6 oz 98/64 Trac e -?-?-?-?-?-?-?-?-?-?-?-?- Negative 148 26 -?-?-?-?-?-?-?-?-?-?-?-?- MH-No VB, LOF. G ood FM. Refuses GCT and qid testing. Discussed risks to mom/baby, testing for baby postpartem. 12/31/24 -?-?-?-?-?-?-?-?-?-?-?-?- 28w 0d 197 lb 4 oz 111/71 Nega tive -?-?-?-?-?-?-?-?-?-?-?-?- Negative 145 28 -?-?-?-?-?-?-?-?-?-?-?-?- KW- no vb/lof/ct x. good fm. is willing to do QID testing for GDM-did not have insurance previously which is why she was declining. supplies sent. declines Tdap. LARC done. discussed baby meds. ok with vitamin K-desires circumcision. May want IOL pending husbands leave schedule () 01/17/25 -?-?-?-?-?-?-?-?-?-?-?-?- 30w 3d 198 lb 2 oz 104/67 -?-?-?-?-?-?-?-?-?-?-?-?- 155 31 -?-?-?-?-?-?-?-?-?-?-?-?- JV- pt states th at the strips were never called in to do the glucose log. discussed peds to test more after delivery. growth scan at 32 and 36 weeks. JV- pt states that the strip s were never called in to do the glucose log. discussed peds to test more after delivery. growth scan at 32 and 36 weeks. declines flu and tdap boosters. 01/28/25 -?-?-?-?-?-?-?-?-?-?-?-?- 32w 0d 202 lb 5 oz 114/78 Nega tive -?-?-?-?-?-?-?-?-?-?-?-?- Negative 157 32 -?-?-?-?-?-?-?-?-?-?-?-?- KW- no vb/lof/ct x. good fm. BS reviewed and 08/27 fasting numbers are over 95. PP numbers are mostly normal. will start metformin and twice weekly NSTs/growth US. 01/31/25 -?-?-?-?-?-?-?-?--?-?-?-?- 32w 3d 201 lb 117/77 -?-?-?-?-?-?-?-?-?-?-?-?- 140 -?-?-?-?-?-?-?-?-?-?-?-?- SM- no vb lof go od fm n oregular ctx 02/03/25 -?-?-?-?-?-?-?-?-?-?-?-?- 32w 6d 201 lb 8 oz 102/78 Nega tive -?-?-?-?-?-?-?-?-?-?-?-?- Negative 135 -?-?-?-?-?-?-?-?-?-?-?-?- KW- NST only. bl ood sugars WNL after starting metformin 02/07/25 -?-?-?-?-?-?-?-?-?-?-?-?- 33w 3d 203 lb 2 oz 112/71 Nega tive -?-?-?-?-?-?-?-?-?-?-?-?- Negative 140 -?-?-?-?-?-?-?-?-?-?-?-?- KW- no vb/lof/ct x. good fm. NST reactive and blood sugars reviewed. 02/10/25 -?-?-?-?-?-?-?-?-?-?-?-?- 33w 6d 203 lb 9 oz 117/72 -?-?-?-?-?-?-?-?-?-?-?-?- 140 -?-?-?-?-?-?-?-?-?-?-?-?- KW- NST only. -r eactive. 02/14/25 -?-?-?-?-?-?-?-?-?-?-?-?- 34w 3d 203 lb 5 oz 122/74 Nega tive -?-?-?-?-?-?-?-?-?-?-?-?- Negative 140 34 -?-?-?-?-?-?-?-?-?-?-?-?- KW- no vb/lof/ct x. good fm. blood sugars reviewed and normal. NST reactive. 02/17/25 -?-?-?-?-?-?-?-?-?-?-?-?- 34w 6d 208 lb 5 oz 116/69 Nega tive -?-?-?-?-?-?-?-?-?-?-?-?- Negative 140 -?-?-?-?-?-?-?-?-?-?-?-?- KW- no vb/lof/ct x. good fm NST reactive 02/21/25 -?-?-?-?-?-?-?-?-?-?-?-?- 35w 3d 202 lb 2 oz 100/63 Nega tive -?-?-?-?-?-?-?-?-?-?-?-?- Negative 145 35 -?-?-?-?-?-?-?-?-?-?-?-?- KW- no vb/lof/ct x. good fm NST reactive. KW- no vb/lof/ctx. good fm N ST reactive. blood sugars reviewed and well controlled. 02/24/25 -?-?-?-?-?-?-?-?-?-?-?-?- 35w 6d 204 lb 8 oz 109/69 Nega tive -?-?-?-?-?-?-?-?-?-?-?-?- Negative 135 -?-?-?-?-?-?-?-?-?-?-?-?- KW- NST only. re active 02/28/25 -?-?-?-?-?-?-?-?-?-?-?-?- 36w 3d 208 lb 1 oz 123/77 -?-?-?-?-?-?-?-?-?-?-?-?- 135 0.5 -?-?-?-?-?-?-?-?-?-?-?-?- SM- no vb lof go od f mn orgular ctx BS controlled gbs collected 03/03/25 -?-?-?-?-?-?-?-?-?-?-?-?- 36w 6d 209 lb 9 oz 124/79 Nega tive -?-?-?-?-?-?-?-?-?-?-?-?- Negative 150 140 -?-?-?-?-?-?-?-?-?-?-?-?- SM- no vb lof go od fm n oregular ctx 03/07/25 -?-?-?-?-?-?-?-?-?-?-?-?- 37w 3d 209 lb 12.8 oz 121/7 4 121/74 Negative -?-?-?-?-?-?-?-?-?-?-?-?- Negative 150 37 0.5 -?-?-?-?-?-?-?-?-?-?-?-?- KV- Good FM. Kory e BH ctx. No LOF or VB. BS controlled. NST reactive. 03/10/25 -?-?-?-?-?-?-?-?-?-?-?-?- 37w 6d 213 lb 118/74 Negative -?-?-?-?-?-?-?-?-?-?-?-?- Negative 145 -?-?-?-?-?-?-?-?-?-?-?-?- KV- NST only. Re active. 03/14/25 -?-?-?-?-?-?-?-?-?-?-?-?- 38w 3d 211 lb 2 oz 113/73 Nega tive -?-?-?-?-?-?-?-?-?-?-?-?- Negative 140 -?-?-?-?-?-?-?-?-?-?-?-?- KW- No vb/lof/ct x. NST has one decel- will go to for evaluation. 03/21/25 -?-?-?-?-?-?-?-?-?-?-?-?- 39w 3d 213 lb 1 oz 125/74 Nega tive -?-?-?-?-?-?-?-?-?-?-?-?- Negative 130 -?-?-?-?-?-?-?-?-?-?-?-?- JV- normal gluco se levels. the tracing shows minimal variability and 2 decels. should be induced at 39 weeks anyway for GDM on medication. sending to L&D now. 03/21/25 -?-?-?-?-?-?-?-?-?-?-?-?- 39w 3d 212 lb 115/67 124/58 124/58 124/73 116/58 -?-?-?-?-?-?-?-?-?-?-?-?- -?-?-?-?-?-?-?-?-?-?-?-?- NST FHR Rate Baby A Baseline: 130 Variability:: Moderate Accelerations:: 15 x 15 Decelerations:: None NST Reactive:: Yes FHR Category:: Category I Uterine Activity:: irregular ROS Constitutional Constitutional: Reports systems reviewed and no addt'l complaints, except as documented Eyes Eyes: Denies change in vision ENT HEENT: Reports systems reviewed and no addt'l complaints, except as documented; Denies headache(s) Cardiovascular Cardiovascular: Reports systems reviewed and no addt'l complaints, except as documented; Denies chest pain or dyspnea Respiratory/Chest Respiratory/Chest: Reports systems reviewed and no addt'l complaints, except as documented Gastrointestinal Gastrointestinal: Reports systems reviewed and no addt'l complaints, except as documented; Denies abdominal pain Genitourinary Genitourinary: Reports systems reviewed and no addt'l complaints, except as documented, contractions Details: present (irregular) and movement Details: present; Denies dysuria or genital lesions Musculoskeletal Musculoskeletal: Reports systems reviewed and no addt'l complaints, except as documented Neurologic Neurologic: Reports systems reviewed and no addt'l complaints, except as documented Endocrine Endocrinology: Reports systems reviewed and no addt'l complaints, except as documented Vital Signs Vital Signs Vital Signs: 03/21/25 11:03 03/21/25 11:03 03/21/25 12:42 Temperature Temperature Source Temporal Pulse Rate 89 Respiratory Rate Blood Pressure 115/67 BP Systolic 115 BP Diastolic 67 Pulse Ox 03/21/25 12:42 03/21/25 12:42 03/21/25 12:42 Temperature 97.9 F Temperature Source Pulse Rate Respiratory Rate 16 Blood Pressure 124/58 H BP Systolic 124 BP Diastolic 58 Pulse Ox 03/21/25 12:43 03/21/25 12:43 03/21/25 13:33 Temperature Temperature Source Pulse Rate 75 Respiratory Rate Blood Pressure 124/58 H 124/73 H BP Systolic 124 124 BP Diastolic 58 73 Pulse Ox 03/21/25 13:33 03/21/25 14:24 03/21/25 14:24 Temperature Temperature Source Pulse Rate 87 81 Respiratory Rate Blood Pressure 116/58 L BP Systolic 116 BP Diastolic 58 Pulse Ox 03/21/25 14:24 03/21/25 14:43 03/21/25 14:43 Temperature Temperature Source Pulse Rate 91 Respiratory Rate 16 Blood Pressure BP Systolic BP Diastolic Pulse Ox 98 Weight Weight: 212 lb Body Mass Index (BMI) 37.5 Physical Exam Const alert, oriented x3, no apparent distress and healthy appearing HEENT normocephalic and moist oral mucous membranes Head and Scalp: atraumatic Neck full ROM, no lymphadenopathy, supple and thyroid normal General: trachea midline Lymph Lymphatic: no lymphadenopathy noted Chest inspection of chest normal Resp normal respiratory effort Cardio regular rate GI soft to palpation and non-tender GI Narrative: gravid Inspection: gravid external exam normal Manual OB Exam: estimated gestational size appropriate, presentation cephalic, dilated, effaced and station Extremity normal to inspection General Extremity: Negative for edema Skin no rashes or lesions noted Neuro no focal motor deficits and deep tendon reflexes 2+ bilaterally Motor Exam: strength 5/5 throughout and clonus absent Psych mental status grossly normal Labs Labs Labs: Blood Type O NEGATIVE Antibody Screen NEGATIVE Hct, (37-47) 31.8 % L Hgb, (12.0-15.0) 10.2 g/dL L Obstetrics Ultrasound Syphilis Total Ab, (Nonreactive) Nonreactive Rubella IgG Antibody, (Nonreactive) REAC Hep Bs Antigen, (Nonreactive) Nonreactive Hepatitis C Antibody, (Nonreactive) Nonreactive Chlamydia DNA ([facility]), (Negative) Negative N.gonorrhoeae DNA ([facility]), (Negative) Negative HIV 1&2 Antibody, (Nonreactive) Nonreactive Glucose 1 Hr 50 gm, (70-140) 153 mg/dL H Gest Glucose Tolerance MG/DL Assessment & Plan (1) Gestational diabetes mellitus (GDM) affecting , antepartum: COMMENT: on metformin. getting twice weekly nsts and deliver at 39 weeks (2) Rh negative status during : QUALIFIERS: Trimester: unspecified trimester Qualified Code(s): O26.899 - Other specified related conditions, unspecified trimester; Z67.91 - Unspecified blood type, Rh negative COMMENT: Maicol is B-, will bring documents to [facility]. (3) Supervision of high-risk : QUALIFIERS: Trimester: second trimester Qualified Code(s): O09.92 - Supervision of high risk , unspecified, second trimester COMMENT: PRR, TAY 03/14 RACHAEL Cornejo Teri Milian (4) : QUALIFIERS: Weeks of gestation: 39 weeks Qualified Code(s): Z3A.39 - 39 weeks gestation of COMMENT: neg GBS. NIPT low risk BOY, carrier screen prev done & negative PLAN: Plan Patient presents IOL, plan management for with cytotec. Pain management: open. GBS negative. Management of any complications: monitor BS I have reviewed the [facility] and made any clinically relevant updates.
--- NOTE | 2025-03-21 15:30 | PCM.HP.OB ---
HPI - General General Date of Admission: 03/21/25 HPI Narrative HATTIE PRO, is a 24 F who presents [ ] Maternal Data Information TAY Calculator Estimated Delivery Date Method Current WG Current Estimate 03/25/25 Ultrasound #1 39w 3d Other Estimates 03/14/25 LMP (Certain) 41w 0d 03/28/25 Ultrasound #2 39w 0d PFSH PFSH Medical History Encounter for management of intrauterine contraceptive device (IUD) Abnormal uterine bleeding (AUB) Vaginal delivery Chlamydia infection affecting Rh negative status during Abnormal glucose affecting Environmental allergies Home Medications ?Medication ?Instructions ?Recorded ?Last Taken ?Type multivitamin no.47-iron fum 27 1 cap PO DAILY #90 caps 05/21/22 03/14/25 08:00 Rx mg-folate no.1 1 mg-dha 300 mg 1 cap capsule (Virt-PN DHA) calcium carbonate (Calcium Antacid) 400 mg PO ONCE 07/29/24 03/14/25 08:00 History 400 mg blood sugar diagnostic (Accu-Chek #100 ea 12/31/24 Unknown Rx Guide test strips) blood-glucose meter #1 ea 12/31/24 Unknown Rx lancets 28 gauge (CareTouch Safety #100 ea 12/31/24 Unknown Rx Lancets) blood sugar diagnostic #100 ea 01/17/25 Unknown Rx blood-glucose meter #1 ea 01/17/25 Unknown Rx metformin 500 mg tablet 500 mg PO QDAY #30 tabs 01/28/25 03/13/25 22:00 Rx 500 mg Allergy/AdvReac Type Severity Reaction Status Date / Time No Known Allergies Allergy Verified 03/21/25 09:29 Family History Sister Seizures absent sz epilepsy sz Surgical History Hx of appendectomy History of appendectomy Social History adopted: No household members: significant other and children housing: house number of children: 1 current occupational status: unemployed current occupation: [employer] current occupational exposures/hazards: No pets and animals: No history of recent travel: No sexually active: Yes Smoking Status: Former smoker quit date: 08/01/22 Tobacco: How many years used: 6 second hand exposure: No alcohol intake: never substance use type: does not use well-balanced diet: daily or most days caffeine: Yes (1 cup ) Type: coffee what type of physical activity do you participate in: weight training frequency: 3-4 times per week seatbelt use: always do you feel safe at home: No additional social history: , Maicol JL residential irasema History 2 Elective abortions Hx Para Spontaneous abortions Hx # Term Pregnancies 1 Ectopic pregnancies Hx # Pregnancies Multiple births # of living children 1 Past Pregnancies Del. Date Name GA/Weeks Outcome Route Bth Weight Gen Labor Lgth Anesthesia Del Locatn Provider FOB 10/27/22 Arabella Cornejo 40 live - full term 8# Female [facility] Marcanthony Delivery Date: 10/27/22 Last Updated by: July JENNINGS Visit Details Expected Delivery Route/Plan Labor Preferences- CB/BF classes: [] labor support person: Maicol labor intervention preferences: [] pain management options preferred: limited intervention cut cord/dad catch: yes : yes PP control planned: [] discussed possible routes of delivery and associated risks: [] special requests: [] Plans Covid status: [] Flu vaccine: declined Tdap vaccine: declined Rhogam: declined bneg LARC form signed: yes movement and labor precautions reviewed. Problem list reviewed and updated with the most current plan of care details and appropriate orders placed. Relevant counseling for the gestational age provided. Continue routine care and follow up unless otherwise noted in visit notes/problem list details OB Flowsheet Initial Weight: Not Recorded Date <del>?</del> EGA Weight BP Urine Prot <del>?</del> Glucose FHR FuHt Pres Dilation <del>?</del> Effaced St Visit Note 08/13/24 <del>?</del> 8w 0d 205 lb 2 oz 113/76 <del>?</del> 140 <del>?</del> JV- CRL not consistent with LMP. no bleeding, or cramping. CRL consistent with 8 weeks 0 days. no COLETTE. return 2 weeks for NIPT and heart beat check. 08/26/24 <del>?</del> 9w 6d 205 lb 127/76 Negative <del>?</del> Negative 170 <del>?</del> KW- no vb/cramping. measuring 9.3 weeks today on vaginal US KW- no vb/cramping. measuring 9.3 weeks today on vaginal US. will come back for labs. anatomy US ordered 09/10/24 <del>?</del> 12w 0d 201 lb 6 oz 120/76 Negative <del>?</del> Negative 166 <del>?</del> KW- no vb/cramping. FHT and movement on US today. anatomy US scheduled. 10/08/24 <del>?</del> 16w 0d 197 lb 108/64 Negative <del>?</del> Negative 150 <del>?</del> KW-no vb/cramping. + flutters. MFM scan scheduled. AFP declined 11/19/24 <del>?</del> 22w 0d 194 lb 2 oz 105/60 Trace <del>?</del> Negative 150 <del>?</del> SM- no vb lof good fm no regular ctx discussed gct testing and patient delcining but discussed options 12/16/24 <del>?</del> 25w 6d 195 lb 6 oz 98/64 Trace <del>?</del> Negative 148 26 <del>?</del> MH-No VB, LOF. Good FM. Refuses GCT and qid testing. Discussed risks to mom/baby, testing for baby postpartem. 12/31/24 <del>?</del> 28w 0d 197 lb 4 oz 111/71 Negative <del>?</del> Negative 145 28 <del>?</del> KW- no vb/lof/ctx. good fm. is willing to do QID testing for GDM-did not have insurance previously which is why she was declining. supplies sent. declines Tdap. LARC done. discussed baby meds. ok with vitamin K-desires circumcision. May want IOL pending husbands leave schedule () 01/17/25 <del>?</del> 30w 3d 198 lb 2 oz 104/67 <del>?</del> 155 31 <del>?</del> JV- pt states that the strips were never called in to do the glucose log. discussed peds to test more after delivery. growth scan at 32 and 36 weeks. JV- pt states that the strips were never called in to do the glucose log. discussed peds to test more after delivery. growth scan at 32 and 36 weeks. declines flu and tdap boosters. 01/28/25 <del>?</del> 32w 0d 202 lb 5 oz 114/78 Negative <del>?</del> Negative 157 32 <del>?</del> KW- no vb/lof/ctx. good fm. BS reviewed and 08/27 fasting numbers are over 95. PP numbers are mostly normal. will start metformin and twice weekly NSTs/growth US. 01/31/25 <del>?</del> 32w 3d 201 lb 117/77 <del>?</del> 140 <del>?</del> SM- no vb lof good fm n oregular ctx 02/03/25 <del>?</del> 32w 6d 201 lb 8 oz 102/78 Negative <del>?</del> Negative 135 <del>?</del> KW- NST only. blood sugars WNL after starting metformin 02/07/25 <del>?</del> 33w 3d 203 lb 2 oz 112/71 Negative <del>?</del> Negative 140 <del>?</del> KW- no vb/lof/ctx. good fm. NST reactive and blood sugars reviewed. 02/10/25 <del>?</del> 33w 6d 203 lb 9 oz 117/72 <del>?</del> 140 <del>?</del> KW- NST only. -reactive. 02/14/25 <del>?</del> 34w 3d 203 lb 5 oz 122/74 Negative <del>?</del> Negative 140 34 <del>?</del> KW- no vb/lof/ctx. good fm. blood sugars reviewed and normal. NST reactive. 02/17/25 <del>?</del> 34w 6d 208 lb 5 oz 116/69 Negative <del>?</del> Negative 140 <del>?</del> KW- no vb/lof/ctx. good fm NST reactive 02/21/25 <del>?</del> 35w 3d 202 lb 2 oz 100/63 Negative <del>?</del> Negative 145 35 <del>?</del> KW- no vb/lof/ctx. good fm NST reactive. KW- no vb/lof/ctx. good fm NST reactive. blood sugars reviewed and well controlled. 02/24/25 <del>?</del> 35w 6d 204 lb 8 oz 109/69 Negative <del>?</del> Negative 135 <del>?</del> KW- NST only. reactive 02/28/25 <del>?</del> 36w 3d 208 lb 1 oz 123/77 <del>?</del> 135 0.5 <del>?</del> SM- no vb lof good f mn orgular ctx BS controlled gbs collected 03/03/25 <del>?</del> 36w 6d 209 lb 9 oz 124/79 Negative <del>?</del> Negative 150 140 <del>?</del> SM- no vb lof good fm n oregular ctx 03/07/25 <del>?</del> 37w 3d 209 lb 12.8 oz 121/74 121/74 Negative <del>?</del> Negative 150 37 0.5 <del>?</del> KV- Good FM. Some BH ctx. No LOF or VB. BS controlled. NST reactive. 03/10/25 <del>?</del> 37w 6d 213 lb 118/74 Negative <del>?</del> Negative 145 <del>?</del> KV- NST only. Reactive. 03/14/25 <del>?</del> 38w 3d 211 lb 2 oz 113/73 Negative <del>?</del> Negative 140 <del>?</del> KW- No vb/lof/ctx. NST has one decel- will go to for evaluation. 03/21/25 <del>?</del> 39w 3d 213 lb 1 oz 125/74 Negative <del>?</del> Negative 130 <del>?</del> JV- normal glucose levels. the tracing shows minimal variability and 2 decels. should be induced at 39 weeks anyway for GDM on medication. sending to L&D now. 03/21/25 <del>?</del> 39w 3d 212 lb 115/67 124/58 124/58 124/73 116/58 <del>?</del> <del>?</del> NST FHR Rate Baby A Baseline: 130 Variability:: Moderate Accelerations:: 15 x 15 Decelerations:: None NST Reactive:: Yes FHR Category:: Category I Uterine Activity:: irregular ROS Constitutional Constitutional: Reports systems reviewed and no addt'l complaints, except as documented Eyes Eyes: Denies change in vision ENT HEENT: Reports systems reviewed and no addt'l complaints, except as documented; Denies headache(s) Cardiovascular Cardiovascular: Reports systems reviewed and no addt'l complaints, except as documented; Denies chest pain or dyspnea Respiratory/Chest Respiratory/Chest: Reports systems reviewed and no addt'l complaints, except as documented Gastrointestinal Gastrointestinal: Reports systems reviewed and no addt'l complaints, except as documented; Denies abdominal pain Genitourinary Genitourinary: Reports systems reviewed and no addt'l complaints, except as documented, contractions Details: present (irregular) and movement Details: present; Denies dysuria or genital lesions Musculoskeletal Musculoskeletal: Reports systems reviewed and no addt'l complaints, except as documented Neurologic Neurologic: Reports systems reviewed and no addt'l complaints, except as documented Endocrine Endocrinology: Reports systems reviewed and no addt'l complaints, except as documented Vital Signs Vital Signs Vital Signs: 03/21/25 11:03 03/21/25 11:03 03/21/25 12:42 Temperature Temperature Source Temporal Pulse Rate 89 Respiratory Rate Blood Pressure 115/67 BP Systolic 115 BP Diastolic 67 Pulse Ox 03/21/25 12:42 03/21/25 12:42 03/21/25 12:42 Temperature 97.9 F Temperature Source Pulse Rate Respiratory Rate 16 Blood Pressure 124/58 H BP Systolic 124 BP Diastolic 58 Pulse Ox 03/21/25 12:43 03/21/25 12:43 03/21/25 13:33 Temperature Temperature Source Pulse Rate 75 Respiratory Rate Blood Pressure 124/58 H 124/73 H BP Systolic 124 124 BP Diastolic 58 73 Pulse Ox 03/21/25 13:33 03/21/25 14:24 03/21/25 14:24 Temperature Temperature Source Pulse Rate 87 81 Respiratory Rate Blood Pressure 116/58 L BP Systolic 116 BP Diastolic 58 Pulse Ox 03/21/25 14:24 03/21/25 14:43 03/21/25 14:43 Temperature Temperature Source Pulse Rate 91 Respiratory Rate 16 Blood Pressure BP Systolic BP Diastolic Pulse Ox 98 Weight Weight: 212 lb Body Mass Index (BMI) 37.5 Physical Exam Const alert, oriented x3, no apparent distress and healthy appearing HEENT normocephalic and moist oral mucous membranes Head and Scalp: atraumatic Neck full ROM, no lymphadenopathy, supple and thyroid normal General: trachea midline Lymph Lymphatic: no lymphadenopathy noted Chest inspection of chest normal Resp normal respiratory effort Cardio regular rate GI soft to palpation and non-tender GI Narrative: gravid Inspection: gravid external exam normal Manual OB Exam: estimated gestational size appropriate, presentation cephalic, dilated, effaced and station Extremity normal to inspection General Extremity: Negative for edema Skin no rashes or lesions noted Neuro no focal motor deficits and deep tendon reflexes 2+ bilaterally Motor Exam: strength 5/5 throughout and clonus absent Psych mental status grossly normal Labs Labs Labs: Blood Type O NEGATIVE Antibody Screen NEGATIVE Hct, (37-47) 31.8 % L Hgb, (12.0-15.0) 10.2 g/dL L Obstetrics Ultrasound Syphilis Total Ab, (Nonreactive) Nonreactive Rubella IgG Antibody, (Nonreactive) REAC Hep Bs Antigen, (Nonreactive) Nonreactive Hepatitis C Antibody, (Nonreactive) Nonreactive Chlamydia DNA (TORREY), (Negative) Negative N.gonorrhoeae DNA (TORREY), (Negative) Negative HIV 1&2 Antibody, (Nonreactive) Nonreactive Glucose 1 Hr 50 gm, (70-140) 153 mg/dL H Gest Glucose Tolerance MG/DL Assessment & Plan (1) Gestational diabetes mellitus (GDM) affecting , antepartum: COMMENT: on metformin. getting twice weekly nsts and deliver at 39 weeks (2) Rh negative status during : QUALIFIERS: Trimester: unspecified trimester Qualified Code(s): O26.899 - Other specified related conditions, unspecified trimester; Z67.91 - Unspecified blood type, Rh negative COMMENT: Maicol is B-, will bring documents to [facility]. (3) Supervision of high-risk : QUALIFIERS: Trimester: second trimester Qualified Code(s): O09.92 - Supervision of high risk , unspecified, second trimester COMMENT: PRR, TAY 03/14 RACHAEL Cornejo Maicol (4) : QUALIFIERS: Weeks of gestation: 39 weeks Qualified Code(s): Z3A.39 - 39 weeks gestation of COMMENT: neg GBS. NIPT low risk BOY, carrier screen prev done & negative PLAN: Plan Patient presents IOL, plan management for with cytotec. Pain management: open. GBS negative. Management of any complications: monitor BS I have reviewed the [facility] and made any clinically relevant updates.
[2025-03-22] VITALS (21 sets, daily range): BP systolic 109–143; BP diastolic 56–77; PULSE 71–114; RESP 16; TEMP 36.1–37.6; O2SAT 97
[2025-03-22] MEDS: Lactated Ringers 1,000 ML 50 ML IV (06:42)
--- NOTE | 2025-03-22 08:18 | PCM.PN.BLA ---
Progress Note Coping well with contractions current tracing: FHT: 140 Moderate variability reactive no decelerations category I tracing [place]: 1-2 Contractions Membranes:intact SVE:/-2 A/P: Continue with position changes Titrate pitocin per protocol Epidural per anesthesia GBS neg Anticipate Dr Liu aware of above assessment and agrees with plan of care Assessment & Plan Assessment/Plan (1) Gestational diabetes mellitus (GDM) affecting , antepartum: (2) Rh negative status during : QUALIFIERS: Trimester: unspecified trimester Qualified Code(s): O26.899 - Other specified related conditions, unspecified trimester; Z67.91 - Unspecified blood type, Rh negative (3) Supervision of high-risk : QUALIFIERS: Trimester: second trimester Qualified Code(s): O09.92 - Supervision of high risk , unspecified, second trimester (4) : QUALIFIERS: Weeks of gestation: 39 weeks Qualified Code(s): Z3A.39 - 39 weeks gestation of (5) Encounter for induction of labor: Multi Select Codes Urinary/Genital Urinary/Genital CPT Codes: No Charge
[2025-03-22] MEDS: Oxytocin 15 Units/NS 250ml 15 UNITS/250 ML IV.SOLN 334 UNITS IV (10:50)
--- NOTE | 2025-03-22 11:17 | OB.VAGDELI_ITS ---
Assessment & Plan (1) Vaginal delivery: COMMENT: KW IOL poonam-Benito (2) Encounter for induction of labor: (3) Gestational diabetes mellitus (GDM) affecting , antepartum: COMMENT: on metformin. getting twice weekly nsts and deliver at 39 weeks (4) Rh negative status during : QUALIFIERS: Trimester: unspecified trimester Qualified Code(s): O26.899 - Other specified related conditions, unspecified trimester; Z67.91 - Unspecified blood type, Rh negative COMMENT: Maicol is B-, will bring documents to [facility]. (5) Supervision of high-risk : QUALIFIERS: Trimester: second trimester Qualified Code(s): O09.92 - Supervision of high risk , unspecified, second trimester COMMENT: PRR, TAY 03/14 PC Arabella Cornejo Maicol (6) : QUALIFIERS: Weeks of gestation: 39 weeks Qualified Code(s): Z3A.39 - 39 weeks gestation of COMMENT: neg GBS. NIPT low risk BOY, carrier screen prev done & negative Maternal Data Information TAY Calculator Estimated Delivery Date Method Current WG Current Estimate 03/25/25 Ultrasound #1 39w 4d Other Estimates 03/14/25 LMP (Certain) 41w 1d 03/28/25 Ultrasound #2 39w 1d Final TAY: 03/25/25 Final TAY Source: US >20 weeks Gestational age: 39.4 Vaginal Delivery Maternal Presentation Maternal Presentation: Medically Indicated Induction Maternal Presentation: Presented to unit for induction of labor for GDM Type of Induction: Cytotec Medical Reason for Induction: Compromise: list: (GDM) Vaginal Delivery Information Procedure Performed: Spontaneous Vaginal Delivery Surgeon/Practitioner: Avelina Avery Date of Procedure: 03/22/25 Pre-Procedure Diagnosis: see problem list Post-Procedure Diagnosis: same Type of anesthesia: Local with 1% Lidocaine Estimated Blood Loss: 150 Time of Delivery: 10:43 Findings Description of procedure: Progressed well to 10cm dilated and made steady progress with effective maternal pushing. Delivered the head in DORIS presentation. The head was delivered atraumatically and no nuchal cord was identified. The head of the bed was lowered and with next effective maternal push the anterior and posterior shoulders delivered without complication followed by the rest of the infant and the infant was placed on the maternal abdomen. Delayed cord clamping was employed for approximately 3 minutes. Cord was clamped and cut and gentle traction was applied to the cord and the placenta delivered spontaneously. Immediately following, it was noted to be intact with a 3 vessel cord. Uterine bleeding stable. The perineum and vagina were inspected and noted to have a second degree laceration which was repaired with 3-0 Vicryl in the usual fashion. EBL was 150cc. Patient and infant tolerated delivery well. Apgars to be determined. Dr Kapadia notified of vaginal delivery and orders reviewed. Physician agrees with current plan of care. Presentation: Vertex Amniotic Membrane Rupture Type: Artificial Amniotic Fluid Description: Clear Placental Delivery Description: Spontaneous Placenta Disposition: [facility] Specimen collected: No Cord Vessel Description: 3 Vessels Cord Entanglement: None Infant A Gender: Male Delayed Cord Clamping: Yes Energy Efficient Site Manager printer assistant: No Post Vaginal Deli Medications given after delivery: IV Pitocin Episiotomy Description: None Laceration: 2nd degree Complication Complications: No Multi Select Codes Urinary/Genital Urinary/Genital CPT Codes: 02930 Vaginal Delivery [facility]
--- NOTE | 2025-03-22 11:21 | DCINST_ITS ---
Discharge Instructions DC O2, CPAP, BIPAP needs Home O2 Discharge instructions: No Dressing / Incision Discharge Activity: Return to Normal Activity May resume sexual activity in: 6-8 weeks Dressing / Incision Call your doctor if you observe: Fever of 101 or Higher, Coldness, Increased Pain, Numbness or Tingling, Change in Color, Inability to urinate, Inability to have a bowel movement, Using more than 1 pad per hour, Shortness of breath, Dizziness, Fainting spells, Swelling in the ankles, Chest pain, Increased palpitations (irregular heartbeat), Calf discomfort and Uncontrolled pain Follow Up Care Please Follow Up With: Avelina vAery CNM When: Please call the office to schedule your follow up appointment in 6 weeks. If you had high blood pressure please call to schedule an appointment in 2 weeks. Test Results: Test results from this visit will be discussed in further detail at your follow- up appointment, if applicable. Discharge Plan Admission Admit Date/Time: 03/21/25 10:15 Attending Provider: Avelina Avery Primary Care Provider: Care Physician,Latasha Primary Discharge Orders/Prescriptions Prescriptions: No Action calcium carbonate [Calcium Antacid] 400 mg calcium (1,000 mg) tablet,chewable 400 mg PO ONCE (DME) lancets [CareTouch Safety Lancets] 28 gauge misc See Rx Instructions .Route Qty: 100 0RF Rx Instructions: As directed (DME) Accu-Chek Guide test strips Strip See Rx Instructions .Route Qty: 100 0RF Rx Instructions: As directed (DME) blood-glucose meter Kit See Rx Instructions .Route Qty: 1 0RF Rx Instructions: As directed (DME) blood-glucose meter Misc See Rx Instructions .Route Qty: 1 0RF Rx Instructions: As directed (DME) blood sugar diagnostic Strip See Rx Instructions .Route Qty: 100 1RF Rx Instructions: As directed metformin 500 mg tablet 500 mg PO QDAY Qty: 30 2RF Virt-PN DHA 27 mg iron-1 mg -300 mg capsule 1 cap PO DAILY Qty: 90 3RF Referrals / Follow Up: Care Physician,No Primary [Primary Care Provider, Medical]
[2025-03-22] MEDS: Oxytocin 15 Units/NS 250ml 15 UNITS/250 ML IV.SOLN 83 UNITS IV (11:35)
[2025-03-22] MEDS: GLYCERIN/WITCH HAZEL (TUCKS) MED..PAD 1 EACH TOPICAL (21:15)
[2025-03-23] VITALS (10 sets, daily range): BP systolic 89–134; BP diastolic 49–73; PULSE 74–109; RESP 14–16; TEMP 36.4–36.6; O2SAT 80–98
--- NOTE | 2025-03-23 08:05 | PCM.PN.OB ---
Subjective Subjective Patient doing well without complaints. Tolerating PO. Ambulating and voiding without difficulty. Feeding well. Denies chest pain, shortness of breath, calf pain/swelling, fevers, chills, lightheadedness. Objective Data Objective Data Vital Signs: Vital Signs Temp Pulse Resp BP Pulse Ox O2 Del Method 97.7 F L 76 15 113/61 98 Room Air 03/23/25 03:15 03/23/25 03:16 03/23/25 03:15 03/23/25 03:15 03/23/25 03:16 03/23/25 03:15 Oxygen Delivery Method Room Air Weight: 212 lb Body Mass Index (BMI) 37.5 Intake & Output: Intake and Output for Last 24 Hours 03/21/25 03/22/25 03/23/25 23:59 23:59 23:59 Intake Total 200 / 200 1618.83 / 1618.83 Output Total 250 / 250 Balance 200 / 200 1368.83 / 1368.83 Lab / Micro Data 03/21/25 11:45 Labs: Laboratory Results - last 24 hr 03/22/25 09:07: POC Glucose 100 03/22/25 10:05: POC Glucose 118 H 03/22/25 12:11: POC Glucose 114 H 03/23/25 05:49: POC Glucose 96 Physical Exam Const alert and oriented x3 HEENT normocephalic Eyes PERRL Neck full ROM Resp normal respiratory effort GI soft to palpation GI Narrative: FF below U Assessment & Plan (1) Vaginal delivery: COMMENT: KW IOL boy-Benito (2) Gestational diabetes mellitus (GDM) affecting , antepartum: COMMENT: on metformin. (3) Rh negative status during : QUALIFIERS: Trimester: unspecified trimester Qualified Code(s): O26.899 - Other specified related conditions, unspecified trimester; Z67.91 - Unspecified blood type, Rh negative COMMENT: Maicol is B-, will bring documents to [facility]. PLAN: Plan s/p PPD # 1 1. routine post delivery care 2. breast feeding- support given 3. rh negative; also rh negative 4. rubella immune 5. glucose stable 6. home today
--- NOTE | 2025-03-27 14:37 | PCM.DC.SUM ---
Providers Date of Admission: 03/21/25 Primary Care Physician: Latasha Primary Care Phys Reason For Visit: VAGINAL DELIVERY Diagnosis Discharge Diagnosis (1) Vaginal delivery: Status: Acute Code(s): O80 - Encounter for full-term uncomplicated delivery (2) Gestational diabetes mellitus (GDM) affecting , antepartum: Status: Acute Code(s): O24.419 - Gestational diabetes mellitus in , unspecified control (3) Rh negative status during : Status: Acute Code(s): O26.899 - Other specified related conditions, unspecified trimester; Z67.91 - Unspecified blood type, Rh negative Qualifiers: Trimester: unspecified trimester Qualified Code(s): O26.899 - Other specified related conditions, unspecified trimester; Z67.91 - Unspecified blood type, Rh negative Plan s/p PPD # 1 1. routine post delivery care 2. breast feeding- support given 3. rh negative; also rh negative 4. rubella immune 5. glucose stable 6. home today Medications at Discharge Home Medications multivitamin no.47-iron fum 27 mg-folate no.1 1 mg-dha 300 mg capsule (Virt-PN DHA) 1 cap PO DAILY #90 caps 05/21/22 calcium carbonate (Calcium Antacid) 400 mg PO ONCE 07/29/24 blood sugar diagnostic (Accu-Chek Guide test strips) #100 ea 12/31/24 blood-glucose meter #1 ea 12/31/24 lancets 28 gauge (CareTouch Safety Lancets) #100 ea 12/31/24 blood sugar diagnostic #100 ea 01/17/25 blood-glucose meter #1 ea 01/17/25 metformin 500 mg tablet 500 mg PO QDAY #30 tabs 01/28/25 Hospital Course Operations - (vaginal delivery) Summary of Care Provided Hospital Course: Spontaneous vaginal delivery with normal postpartem course and discharged on day 3 Weight / BMI Weight Weight: 212 lb Body Mass Index (BMI) 37.5 PRE- weight 195 lb PRE- Body Mass Index 34.5 (BMI) ABG / Lab / Microbiology Data 03/21/25 11:45 D/C Instructions May resume sexual activity in: 6-8 weeks Call your doctor if you observe: Fever of 101 or Higher, Coldness, Increased Pain, Numbness or Tingling, Change in Color, Inability to urinate, Inability to have a bowel movement, Using more than 1 pad per hour, Shortness of breath, Dizziness, Fainting spells, Swelling in the ankles, Chest pain, Increased palpitations (irregular heartbeat), Calf discomfort and Uncontrolled pain DC O2, CPAP, BIPAP Needs Home O2 Discharge instructions: No Please Follow Up With: Avelina Avery CNM When: Please call the office to schedule your follow up appointment in 6 weeks. If you had high blood pressure please call to schedule an appointment in 2 weeks. Meaningful Use Info Meaningful Use Meaningful Use Diagnoses (Choose all that apply): None applicable Discharge Plan Admission Admit Date/Time: 03/21/25 10:15 Attending Provider: Avelina Avery Primary Care Provider: Care PhysicianLatasha Primary Discharge Orders/Prescriptions Prescriptions: No Action calcium carbonate [Calcium Antacid] 400 mg calcium (1,000 mg) tablet,chewable 400 mg PO ONCE (DME) lancets [CareTouch Safety Lancets] 28 gauge misc See Rx Instructions .Route Qty: 100 0RF Rx Instructions: As directed (DME) Accu-Chek Guide test strips Strip See Rx Instructions .Route Qty: 100 0RF Rx Instructions: As directed (DME) blood-glucose meter Kit See Rx Instructions .Route Qty: 1 0RF Rx Instructions: As directed (DME) blood-glucose meter Misc See Rx Instructions .Route Qty: 1 0RF Rx Instructions: As directed (DME) blood sugar diagnostic Strip See Rx Instructions .Route Qty: 100 1RF Rx Instructions: As directed metformin 500 mg tablet 500 mg PO QDAY Qty: 30 2RF Virt-PN DHA 27 mg iron-1 mg -300 mg capsule 1 cap PO DAILY Qty: 90 3RF Referrals / Follow Up: Care Physician,No Primary [Primary Care Provider, Medical] Disposition Disposition (needs filled in before D/C Order can be placed): Home, Self Care
== END 2025-03-23 16:44 | disposition home or self-care (01) | DRG 807 ==
PROVIDERS: Obstetrics & Gynecology; Admitting Provider Advanced Practice Midwife; Referring Provider Advanced Practice Midwife; Visit Provider Advanced Practice Midwife
DX: O24.425 Gestational diabetes mellitus in childbirth, controlled by oral hypoglycemic drugs (principal); Z37.0 Single live birth; O26.893 Other specified pregnancy related conditions, third trimester; O70.1 Second degree perineal laceration during delivery; Z3A.39 39 weeks gestation of pregnancy; Z67.91 Unspecified blood type, Rh negative; Z87.891 Personal history of nicotine dependence
CPT/HCPCS: 59025; 59050; 82962; 85025; 86780; 86850; 86900; 86901; 99221; A4216; G0378